=== PATIENT | male | born 1955 | race Caucasian/White ===

== ENCOUNTER 2017-06-11 10:46 | Inpatient (IN) | payer BC ==
[~2017-06-11] VITALS: Ht 175.3 cm; Wt 83.9 kg
[2017-06-11 10:51] VITALS: BP_SYST 101
[2017-06-11] MEDS ORDERED: PIPERACILLIN/TAZO 3.375 GM in NS 50 ML IV ONE (11:45)
[2017-06-11 12:02] LABS: BASOPHILS # (AUTO) 0.5 K/uL (0.0-0.2); BASOPHILS % (AUTO) 2.4 % (0.0-2.0); HEMATOCRIT 42.1 % (36-54); HEMOGLOBIN 13.7 g/dL (14.0-18.0); LYMPHOCYTES # (AUTO) 1.3 K/uL (1.0-5.5); LYMPHOCYTES % (AUTO) 6.5 % (20.5-51.5); MEAN CORPUSCULAR HEMOGLOBIN 26 pg (27-31); MEAN CORPUSCULAR HGB CONC 33 % (32-36); MEAN CORPUSCULAR VOLUME 81 fL (79.0-98.0); MONOCYTES # (AUTO) 1.2 K/uL (0.0-1.0); MONOCYTES % (AUTO) 6.1 % (1.7-9.3); NEUTROPHILS # (AUTO) 16.3 K/uL (1.8-7.7); RED BLOOD CELL COUNT(AUTO) 5.22 MIL/uL (4.2-6.2); RED CELL DISTRIBUTION WIDTH 12.2 % (9.0-15.0); WHITE BLOOD COUNT (AUTO) 19.3 K/uL (4.8-10.8)
[2017-06-11] MEDS ORDERED: PIPERACILLIN/TAZOBACTAM 3.375 GM/VIAL (ZOSYN) IV ONE (12:07)
[2017-06-11 12:19] LABS: CREATININE 2.26 mg/dL (0.55-1.30)
[2017-06-11 12:22] LABS: INR 1.1 (0.80-1.20); PROTHROMBIN TIME 11.3 SECS (9.5-12.5)
[2017-06-11 12:23] LABS: ALBUMIN 2.3 g/dL (3.4-4.8); TOTAL BILIRUBIN 0.4 mg/dL (0.0-1.0)
[2017-06-11 12:57] LABS: PLATELET COUNT (AUTO) 829 K/uL (130-430)
[2017-06-11] MEDS ORDERED: DEXTROSE 50% JECT 50 ML DISP.SYRIN IVP PRN (14:00)
[2017-06-11] MEDS ORDERED: NACL 0.9% 1,000 ML IV SCH (14:00)
[2017-06-11] MEDS ORDERED: LINEZOLID 300 ML IV SCH (14:00)
[2017-06-11 14:05] VITALS: BP_SYST 118
[2017-06-11] MEDS ORDERED: TAMSULOSIN HCL 0.4 MG CAP PO ONE (14:15)
[2017-06-11 15:29] VITALS: BP_SYST 120
[2017-06-11] MEDS: cefTRIAXone 1 GM in D5W 50 ML IV SCH (17:02)
[2017-06-11] MEDS: INSULIN REGULAR, HUMAN 100 UNITS/ML, 10 ML VIAL (novoLIN R) SUBCUT PRN ×2 (17:06→21:48)
[2017-06-11] MEDS ORDERED: *CUBICIN 4 MG/KG Q48H/PHARMACY XX PRN (17:30)
[2017-06-11] MEDS ORDERED: *HEPARIN PER PHARMACY XX ONE (19:45)
[2017-06-11 20:00] VITALS: BP_SYST 125
[2017-06-11] MEDS ORDERED: HEPARIN SODIUM,PORCINE 5000 UNITS/ML VIAL IVP ONE (20:15)
[2017-06-11] MEDS ORDERED: HEPARIN 25,000 UNITS/D5W 250ML 250 ML IV PRN (20:15)
[2017-06-11] MEDS ORDERED: HEPARIN SODIUM,PORCINE 3000 UNITS/0.6 ML BOLUS IVP PRN (20:15)
[2017-06-11] MEDS ORDERED: HEPARIN SODIUM,PORCINE 2000 UNITS/0.4 ML BOLUS IVP PRN (20:15)
[2017-06-11] MEDS ORDERED: ENOXAPARIN SODIUM 30 MG/0.3 ML SYRINGE SUBCUT SCH (21:00)
[2017-06-11] MEDS: DAPTOmycin 330 MG in NS 50 ML IV SCH (21:38)
[2017-06-11] MEDS: NACL 0.9% 1,000 ML IV SCH (22:08)
[2017-06-12] VITALS: BP_SYST 119
[2017-06-12 02:43] LABS: BILIRUBIN,URINE NEGATIVE (NEGATIVE); BLOOD, URINE 3+ (NEGATIVE); CLARITY/URINE CLEAR (CLEAR); COLOR,URINE YELLOW (YELLOW); GLUCOSE,URINE TRACE (NEGATIVE); KETONES,URINE NEGATIVE (NEGATIVE); LEUKOCYTE ESTERASE ,URINE NEGATIVE (NEGATIVE); NITRITE, URINE NEGATIVE (NEGATIVE); PROTEIN URINE TRACE (NEGATIVE); UROBILINOGEN,URINE 0.2 (0.2-1.0)
[2017-06-12 03:06] LABS: BACTERIA,URINE FEW /HPF (None Seen); WBC,URINE 0-3 /HPF (0-3)
[2017-06-12] MEDS: NACL 0.9% 1,000 ML IV SCH ×2 (05:00→09:02)
[2017-06-12 05:54] LABS: BASOPHILS % (AUTO) 0.1 % (0.0-2.0); HEMATOCRIT 33.7 % (36-54); HEMOGLOBIN 11.3 g/dL (14.0-18.0); LYMPHOCYTES # (AUTO) 1.2 K/uL (1.0-5.5); LYMPHOCYTES % (AUTO) 7.5 % (20.5-51.5); MEAN CORPUSCULAR HEMOGLOBIN 27 pg (27-31); MEAN CORPUSCULAR HGB CONC 34 % (32-36); MEAN CORPUSCULAR VOLUME 81 fL (79.0-98.0); MONOCYTES # (AUTO) 0.9 K/uL (0.0-1.0); MONOCYTES % (AUTO) 5.7 % (1.7-9.3); NEUTROPHILS # (AUTO) 13.4 K/uL (1.8-7.7); NEUTROPHILS % (AUTO) 86.7 % (40.0-70.0); RED BLOOD CELL COUNT(AUTO) 4.17 MIL/uL (4.2-6.2); RED CELL DISTRIBUTION WIDTH 11.8 % (9.0-15.0); WHITE BLOOD COUNT (AUTO) 15.5 K/uL (4.8-10.8)
[2017-06-12] MEDS: INSULIN REGULAR, HUMAN 100 UNITS/ML, 10 ML VIAL (novoLIN R) SUBCUT PRN (06:06)
[2017-06-12 06:31] LABS: CALCIUM 8.6 mg/dL (8.4-11.0); CREATININE 1.86 mg/dL (0.55-1.30); POTASSIUM 3.9 mmol/L (3.5-5.1)
[2017-06-12 06:37] LABS: ALBUMIN 1.8 g/dL (3.4-4.8); TOTAL BILIRUBIN 0.3 mg/dL (0.0-1.0)
[2017-06-12 07:28] LABS: PLATELET COUNT (AUTO) 783 K/uL (130-430)
[2017-06-12 08:00] VITALS: BP_SYST 110
[2017-06-12] MEDS: TAMSULOSIN HCL 0.4 MG CAP PO SCH (08:15)
[2017-06-12] MEDS ORDERED: METF100P3 MC (08:55)
[2017-06-12] MEDS ORDERED: VALS320T10 PO (08:55)
[2017-06-12] MEDS ORDERED: CHLO25TA PO (08:55)
[2017-06-12 11:25] LABS: INR 1.1 (0.80-1.20); PROTHROMBIN TIME 11.3 SECS (9.5-12.5)
[2017-06-12] MEDS: FLUCONAZOLE 200 mg/ NS 100 ML IV SCH (11:45)
[2017-06-12 12:13] VITALS: BP_SYST 125
[2017-06-12] MEDS: cefTRIAXone 1 GM in D5W 50 ML IV SCH (14:43)
[2017-06-12 16:34] VITALS: BP_SYST 128
[2017-06-12] MEDS ORDERED: POLYMYXIN 500,000/BACIT.10,000 UNITS in NS IRR 1 L IR ONE (17:46)
[2017-06-12] MEDS ORDERED: ONDANSETRON HCL 4 MG/2 ML VIAL IVP PRN (18:30)
[2017-06-12] MEDS ORDERED: fentaNYL CITRATE/PF 100 MCG/2 ML AMP IVP PRN ×2 (18:30)
[2017-06-12] MEDS ORDERED: BUPIVACAINE /PF 0.25% 30 ML VIAL INJ ONE (19:10)
[2017-06-12] MEDS ORDERED: PROPOFOL 200MG/ 20ML VIAL (DIPRIVAN) IV ONE (19:10)
[2017-06-12] MEDS ORDERED: MIDAZOLAM HCL 5 MG/ML VIAL (VERSED) IV ONE (19:10)
[2017-06-12] MEDS ORDERED: NS 1000 ML BAG IV ONE (19:10)
[2017-06-12] MEDS ORDERED: fentaNYL CITRATE/PF 100 MCG/2 ML AMP IVP ONE (19:10)
[2017-06-12] MEDS ORDERED: SEVOFLURANE 15 MIN GAS INH ONE (19:10)
[2017-06-12 20:00] VITALS: BP_SYST 125
[2017-06-13 00:17] VITALS: BP_SYST 122
[2017-06-13 05:04] VITALS: BP_SYST 122
[2017-06-13] MEDS: NACL 0.9% 1,000 ML IV SCH ×2 (05:43→11:45)
[2017-06-13 07:24] LABS: BASOPHILS % (AUTO) 0.2 % (0.0-2.0); HEMATOCRIT 31.9 % (36-54); HEMOGLOBIN 10.9 g/dL (14.0-18.0); LYMPHOCYTES # (AUTO) 0.5 K/uL (1.0-5.5); LYMPHOCYTES % (AUTO) 3.2 % (20.5-51.5); MEAN CORPUSCULAR HEMOGLOBIN 27 pg (27-31); MEAN CORPUSCULAR HGB CONC 34 % (32-36); MEAN CORPUSCULAR VOLUME 80 fL (79.0-98.0); MONOCYTES # (AUTO) 1.2 K/uL (0.0-1.0); NEUTROPHILS # (AUTO) 12.8 K/uL (1.8-7.7); PLATELET COUNT (AUTO) 738 K/uL (130-430); RED BLOOD CELL COUNT(AUTO) 3.97 MIL/uL (4.2-6.2); WHITE BLOOD COUNT (AUTO) 14.5 K/uL (4.8-10.8)
[2017-06-13 07:32] LABS: CALCIUM 8.1 mg/dL (8.4-11.0); CREATININE 1.53 mg/dL (0.55-1.30)
[2017-06-13 07:33] LABS: INR 1.2 (0.80-1.20); PROTHROMBIN TIME 11.7 SECS (9.5-12.5)
[2017-06-13 07:45] LABS: TOTAL IRON BIND. CAPACITY 98 ug/dL (250-450)
[2017-06-13 08:15] VITALS: BP_SYST 124
[2017-06-13] MEDS: ENOXAPARIN SODIUM 40 MG/0.4 ML SYRINGE SUBCUT SCH (09:04)
[2017-06-13] MEDS: TAMSULOSIN HCL 0.4 MG CAP PO SCH (09:04)
[2017-06-13 10:15] LABS: ERYTHROCYTE SEDIMENTATION RATE 102 MM/HR (0-15)
[2017-06-13] MEDS ORDERED: LACTOBACILLUS RHAMNOSUS GG 1 CAP CAPSULE PO ONE (11:15)
[2017-06-13 11:29] LABS: RETICULOCYTE COUNT 1.7 % (0.5-1.5)
[2017-06-13] MEDS: FLUCONAZOLE 200 mg/ NS 100 ML IV SCH (11:44)
[2017-06-13] MEDS: INSULIN REGULAR, HUMAN 100 UNITS/ML, 10 ML VIAL (novoLIN R) SUBCUT PRN ×2 (11:46→17:13)
[2017-06-13] MEDS: cefTRIAXone 1 GM in D5W 50 ML IV SCH (15:58)
[2017-06-13 16:48] VITALS: BP_SYST 130
[2017-06-13 20:01] VITALS: BP_SYST 142
[2017-06-13] MEDS: LACTOBACILLUS RHAMNOSUS GG 1 CAP CAPSULE PO SCH (20:23)
[2017-06-13] MEDS: DAPTOmycin 330 MG in NS 50 ML IV SCH (20:30)
[2017-06-13] MEDS: INSULIN ASPART 100 UNITS/ML, 10 ML VIAL (NovoLOG) SUBCUT PRN (20:33)
[2017-06-13] MEDS ORDERED: SOD FERRIC GLUC COMPLEX/SUC 62.5 MG/5 ML VIAL (FERRLECIT) IV ONE (21:22)
[2017-06-13] MEDS: SOD FERRIC GLUC COMPLEX/SUC 125 MG in NS 100 ML IV SCH (22:09)
[2017-06-14 00:04] VITALS: BP_SYST 126
[2017-06-14] MEDS: NACL 0.9% 1,000 ML IV SCH ×4 (04:52→20:28)
[2017-06-14 08:07] VITALS: BP_SYST 123
[2017-06-14] MEDS: ENOXAPARIN SODIUM 40 MG/0.4 ML SYRINGE SUBCUT SCH (08:19)
[2017-06-14] MEDS: TAMSULOSIN HCL 0.4 MG CAP PO SCH (08:20)
[2017-06-14] MEDS: LACTOBACILLUS RHAMNOSUS GG 1 CAP CAPSULE PO SCH ×2 (08:20→20:16)
[2017-06-14 12:33] VITALS: BP_SYST 137
[2017-06-14] MEDS: FLUCONAZOLE 200 mg/ NS 100 ML IV SCH (12:36)
[2017-06-14] MEDS: cefTRIAXone 1 GM in D5W 50 ML IV SCH (14:33)
[2017-06-14 16:36] VITALS: BP_SYST 136
[2017-06-14] MEDS ORDERED: POLYMYXIN 500,000/BACIT.10,000 UNITS in NS IRR 1 L IR ONE (16:53)
[2017-06-14] MEDS ORDERED: fentaNYL CITRATE/PF 100 MCG/2 ML AMP IVP PRN ×2 (17:45)
[2017-06-14] MEDS ORDERED: ONDANSETRON HCL 4 MG/2 ML VIAL IVP PRN (17:45)
[2017-06-14 18:45] VITALS: BP_SYST 156
[2017-06-14 20:00] VITALS: BP_SYST 144
[2017-06-14] MEDS: SOD FERRIC GLUC COMPLEX/SUC 125 MG in NS 100 ML IV SCH (20:17)
[2017-06-15 00:05] VITALS: BP_SYST 129
[2017-06-15 06:51] LABS: ALBUMIN 1.6 g/dL (3.4-4.8); CALCIUM 7.8 mg/dL (8.4-11.0); CREATININE 1.28 mg/dL (0.55-1.30); PHOSPHORUS 3.3 mg/dL (2.7-4.5); POTASSIUM 4.3 mmol/L (3.5-5.1); TOTAL BILIRUBIN 0.3 mg/dL (0.0-1.0)
[2017-06-15 07:03] LABS: BASOPHILS % (AUTO) 0.4 % (0.0-2.0); EOSINOPHILS % (AUTO) 0.1 % (0.0-4.0); HEMATOCRIT 31.7 % (36-54); HEMOGLOBIN 10.4 g/dL (14.0-18.0); LYMPHOCYTES # (AUTO) 0.7 K/uL (1.0-5.5); LYMPHOCYTES % (AUTO) 6.1 % (20.5-51.5); MEAN CORPUSCULAR HEMOGLOBIN 26 pg (27-31); MEAN CORPUSCULAR HGB CONC 33 % (32-36); MEAN CORPUSCULAR VOLUME 80 fL (79.0-98.0); MONOCYTES # (AUTO) 1.2 K/uL (0.0-1.0); MONOCYTES % (AUTO) 9.5 % (1.7-9.3); NEUTROPHILS # (AUTO) 10.3 K/uL (1.8-7.7); NEUTROPHILS % (AUTO) 83.9 % (40.0-70.0); RED BLOOD CELL COUNT(AUTO) 3.95 MIL/uL (4.2-6.2); RED CELL DISTRIBUTION WIDTH 11.9 % (9.0-15.0); WHITE BLOOD COUNT (AUTO) 12.2 K/uL (4.8-10.8)
[2017-06-15 07:46] LABS: PLATELET COUNT (AUTO) 795 K/uL (130-430)
[2017-06-15 07:47] LABS: NEUTROPHILS % (AUTO) 88.6 % (40.0-70.0)
[2017-06-15 08:30] VITALS: BP_SYST 136
[2017-06-15] MEDS: NACL 0.9% 1,000 ML IV SCH ×2 (09:40→21:41)
[2017-06-15] MEDS: TAMSULOSIN HCL 0.4 MG CAP PO SCH (09:40)
[2017-06-15] MEDS: LACTOBACILLUS RHAMNOSUS GG 1 CAP CAPSULE PO SCH ×2 (09:40→20:19)
[2017-06-15] MEDS: ENOXAPARIN SODIUM 40 MG/0.4 ML SYRINGE SUBCUT SCH (09:40)
[2017-06-15] MEDS: FLUCONAZOLE 200 mg/ NS 100 ML IV SCH (11:42)
[2017-06-15 11:46] VITALS: BP_SYST 136
[2017-06-15] MEDS: INSULIN ASPART 100 UNITS/ML, 10 ML VIAL (NovoLOG) SUBCUT PRN ×3 (11:52→20:22)
[2017-06-15] MEDS: cefTRIAXone 1 GM in D5W 50 ML IV SCH (15:28)
[2017-06-15 16:58] VITALS: BP_SYST 132
[2017-06-15 20:15] VITALS: BP_SYST 144
[2017-06-15] MEDS: DAPTOmycin 330 MG in NS 50 ML IV SCH (20:19)
[2017-06-15] MEDS: SOD FERRIC GLUC COMPLEX/SUC 125 MG in NS 100 ML IV SCH (21:42)
[2017-06-16 01:08] VITALS: BP_SYST 121
[2017-06-16] MEDS: INSULIN ASPART 100 UNITS/ML, 10 ML VIAL (NovoLOG) SUBCUT PRN ×2 (06:06→20:53)
[2017-06-16 07:01] LABS: BASOPHILS # (AUTO) 0.1 K/uL (0.0-0.2); BASOPHILS % (AUTO) 0.4 % (0.0-2.0); HEMATOCRIT 37.1 % (36-54); LYMPHOCYTES # (AUTO) 0.8 K/uL (1.0-5.5); LYMPHOCYTES % (AUTO) 4.8 % (20.5-51.5); MEAN CORPUSCULAR HEMOGLOBIN 26 pg (27-31); MEAN CORPUSCULAR HGB CONC 32 % (32-36); MEAN CORPUSCULAR VOLUME 81 fL (79.0-98.0); MONOCYTES # (AUTO) 1.5 K/uL (0.0-1.0); MONOCYTES % (AUTO) 8.9 % (1.7-9.3); NEUTROPHILS # (AUTO) 14.3 K/uL (1.8-7.7); NEUTROPHILS % (AUTO) 85.9 % (40.0-70.0); WHITE BLOOD COUNT (AUTO) 16.7 K/uL (4.8-10.8)
[2017-06-16 07:17] LABS: CALCIUM 8.3 mg/dL (8.4-11.0); CREATININE 1.26 mg/dL (0.55-1.30); POTASSIUM 4.1 mmol/L (3.5-5.1)
[2017-06-16 07:33] LABS: PLATELET COUNT (AUTO) 853 K/uL (130-430)
[2017-06-16 07:38] LABS: INR 1.1 (0.80-1.20); PROTHROMBIN TIME 11.4 SECS (9.5-12.5)
[2017-06-16 08:05] VITALS: BP_SYST 142
[2017-06-16 08:12] LABS: RED CELL DISTRIBUTION WIDTH 12.3 % (9.0-15.0)
[2017-06-16] MEDS: LACTOBACILLUS RHAMNOSUS GG 1 CAP CAPSULE PO SCH ×2 (09:18→20:49)
[2017-06-16] MEDS: TAMSULOSIN HCL 0.4 MG CAP PO SCH (09:18)
[2017-06-16] MEDS: ENOXAPARIN SODIUM 40 MG/0.4 ML SYRINGE SUBCUT SCH (09:19)
[2017-06-16] MEDS: FLUCONAZOLE 200 mg/ NS 100 ML IV SCH (11:51)
[2017-06-16 12:36] VITALS: BP_SYST 146
[2017-06-16] MEDS: cefTRIAXone 1 GM in D5W 50 ML IV SCH (14:42)
[2017-06-16] MEDS ORDERED: TAMS-11 PO (15:49)
[2017-06-16] MEDS ORDERED: CARV3.1246 PO (15:49)
[2017-06-16] MEDS ORDERED: AMOX250C PO (15:51)
[2017-06-16 15:52] VITALS: BP_SYST 150
[2017-06-16] MEDS ORDERED: NACL 0.9% 1,000 ML IV ONE (16:00)
[2017-06-16] MEDS ORDERED: CARVEDILOL 6.25 MG TABLET (COREG) PO ONE (16:30)
[2017-06-16] MEDS: NACL 0.9% 1,000 ML IV SCH (17:28)
[2017-06-16 20:00] VITALS: BP_SYST 158
[2017-06-16] MEDS: CARVEDILOL 6.25 MG TABLET (COREG) PO SCH (20:50)
[2017-06-16 23:54] VITALS: BP_SYST 136
[2017-06-17] MEDS: NACL 0.9% 1,000 ML IV SCH ×2 (01:34→15:48)
[2017-06-17 03:47] VITALS: BP_SYST 139
[2017-06-17 07:37] LABS: BASOPHILS # (AUTO) 0.1 K/uL (0.0-0.2); BASOPHILS % (AUTO) 0.5 % (0.0-2.0); EOSINOPHILS % (AUTO) 0.1 % (0.0-4.0); HEMATOCRIT 34.6 % (36-54); HEMOGLOBIN 11.8 g/dL (14.0-18.0); LYMPHOCYTES # (AUTO) 0.9 K/uL (1.0-5.5); LYMPHOCYTES % (AUTO) 6.8 % (20.5-51.5); MEAN CORPUSCULAR HEMOGLOBIN 27 pg (27-31); MEAN CORPUSCULAR HGB CONC 34 % (32-36); MEAN CORPUSCULAR VOLUME 80 fL (79.0-98.0); MONOCYTES # (AUTO) 0.8 K/uL (0.0-1.0); MONOCYTES % (AUTO) 6.3 % (1.7-9.3); NEUTROPHILS # (AUTO) 11.3 K/uL (1.8-7.7); NEUTROPHILS % (AUTO) 86.3 % (40.0-70.0); RED BLOOD CELL COUNT(AUTO) 4.31 MIL/uL (4.2-6.2); RED CELL DISTRIBUTION WIDTH 12.6 % (9.0-15.0); WHITE BLOOD COUNT (AUTO) 13.1 K/uL (4.8-10.8)
[2017-06-17 07:45] LABS: CREATININE 1.15 mg/dL (0.55-1.30); POTASSIUM 4.6 mmol/L (3.5-5.1)
[2017-06-17 08:00] LABS: PLATELET COUNT (AUTO) 896 K/uL (130-430)
[2017-06-17] MEDS: TAMSULOSIN HCL 0.4 MG CAP PO SCH (08:06)
[2017-06-17] MEDS: CARVEDILOL 6.25 MG TABLET (COREG) PO SCH ×2 (08:10→20:30)
[2017-06-17] MEDS: LACTOBACILLUS RHAMNOSUS GG 1 CAP CAPSULE PO SCH ×2 (08:11→20:30)
[2017-06-17] MEDS: ENOXAPARIN SODIUM 40 MG/0.4 ML SYRINGE SUBCUT SCH (08:11)
[2017-06-17 08:16] VITALS: BP_SYST 149
[2017-06-17 12:02] VITALS: BP_SYST 135
[2017-06-17 12:22] VITALS: BP_SYST 135
[2017-06-17] MEDS: INSULIN ASPART 100 UNITS/ML, 10 ML VIAL (NovoLOG) SUBCUT PRN ×2 (12:33→20:47)
[2017-06-17] MEDS: cefTRIAXone 1 GM in D5W 50 ML IV SCH (15:16)
[2017-06-17 16:09] VITALS: BP_SYST 139
[2017-06-17] MEDS: metFORMIN HCL 500 MG TABLET PO SCH (17:55)
[2017-06-17 20:00] VITALS: BP_SYST 136
[2017-06-17] MEDS: DAPTOmycin 330 MG in NS 50 ML IV SCH (20:30)
[2017-06-18] VITALS (7 sets, daily range): BP systolic 107–139
[2017-06-18] MEDS: NACL 0.9% 1,000 ML IV SCH ×2 (03:12→08:00)
[2017-06-18] MEDS: ENOXAPARIN SODIUM 40 MG/0.4 ML SYRINGE SUBCUT SCH (09:14)
[2017-06-18] MEDS: CARVEDILOL 6.25 MG TABLET (COREG) PO SCH (09:14)
[2017-06-18] MEDS: TAMSULOSIN HCL 0.4 MG CAP PO SCH (09:14)
[2017-06-18] MEDS: LACTOBACILLUS RHAMNOSUS GG 1 CAP CAPSULE PO SCH (09:14)
[2017-06-18] MEDS: metFORMIN HCL 500 MG TABLET PO SCH (09:15)
[2017-06-18] MEDS ORDERED: FLUCONAZOLE 200 mg/ NS 100 ML IV SCH (13:00)
[2017-06-18] MEDS: cefTRIAXone 1 GM in D5W 50 ML IV SCH (14:42)
[2017-06-18] MEDS ORDERED: NS IRRIG SOLN 1000 ML IR ONE (17:00)
[2017-06-18] MEDS ORDERED: MIDAZOLAM HCL 5 MG/5 ML VIAL IVP ONE (17:00)
[2017-06-18] MEDS ORDERED: BUPIVACAINE /EPINEPHRINE/PF 0.25% 30 ML VIAL INJ ONE (17:00)
[2017-06-18] MEDS ORDERED: fentaNYL CITRATE/PF 100 MCG/2 ML AMP IVP ONE (17:00)
[2017-06-18] MEDS ORDERED: SEVOFLURANE 15 MIN GAS INH ONE (17:00)
[2017-06-18] MEDS ORDERED: LR 1,000 ML IV.SOLN IV ONE (17:00)
[2017-06-18] MEDS ORDERED: PROPOFOL 200MG/ 20ML VIAL (DIPRIVAN) IV ONE (17:00)
== END 2017-06-18 17:40 | disposition home or self-care (01) | DRG 853 ==
LOC: SED 10:46 → SMU 13:32 → STU 13:52 → SMU 22:28
PROVIDERS: ADMIT Internal Medicine; ATTEND Internal Medicine
PROC: 05HY33Z Insertion of Infusion Device into Upper Vein, Percutaneous Approach (ICD-10-PCS; 2017-06-12)
PROC: 0Y6M0Z9 Detachment at Right Foot, Partial 1st Ray, Open Approach (ICD-10-PCS; principal; 2017-06-12 17:00)
PROC: 0JBQ0ZZ Excision of Right Foot Subcutaneous Tissue and Fascia, Open Approach (ICD-10-PCS; 2017-06-14)
DX: A41.9 Sepsis, unspecified organism (principal); E43 Unspecified severe protein-calorie malnutrition; N17.9 Acute kidney failure, unspecified; D68.59 Other primary thrombophilia; E11.21 Type 2 diabetes mellitus with diabetic nephropathy; I82.402 Acute embolism and thrombosis of unspecified deep veins of left lower extremity; E11.42 Type 2 diabetes mellitus with diabetic polyneuropathy; E11.621 Type 2 diabetes mellitus with foot ulcer; M86.8X7 Other osteomyelitis, ankle and foot; E87.1 Hypo-osmolality and hyponatremia; E11.69 Type 2 diabetes mellitus with other specified complication; L97.519 Non-pressure chronic ulcer of other part of right foot with unspecified severity; M21.612 Bunion of left foot; D64.9 Anemia, unspecified; E78.5 Hyperlipidemia, unspecified; I10 Essential (primary) hypertension; L03.031 Cellulitis of right toe; Z86.72 Personal history of thrombophlebitis; Z91.19 Patient's noncompliance with other medical treatment and regimen; Z68.27 Body mass index [BMI] 27.0-27.9, adult
CPT/HCPCS: 36415; 71045; 73721; 76770; 80048; 80053; 81000-TC; 82728; 82962; 83036; 83540-TC; 83550-TC; 83605; 83735-TC; 84100-TC; 84484; 85025; 85044-TC; 85610-TC; 85651-TC; 85730-TC; 87040-TC; 87070-TC; 87081; 87186-TC; 88305; 88311; 93005; 93923; 93970; 96365; 97116-GP; 97530-GP; 99291; C1751; J0696; J0878; J1450; J1644; J1650; J1815; J2020; J2250; J2543; J2704; J2916; J3010; J3490; J7030; J7060; J7120

== ENCOUNTER 2017-07-01 10:33 | Inpatient (IN) | payer BC ==
[~2017-07-01] VITALS: Ht 177.8 cm; Wt 96.4 kg
[~2017-07-01 10:33] MED LIST: AMOX250C PO; CARV3.1246 PO; METF100P3 MC; TAMS-11 PO
--- NOTE | 2017-07-01 10:35 | NUR ---
Placed in room 3. Placed on cardiac rehab nurse, blood pressure machine and pulse oximeter. To gown for exam. Side rails up.
--- NOTE | 2017-07-01 10:36 | NUR ---
Pt sent from PMD for evaluation of CHF with c/o SOB. Pt h/o DM, HTN and recebnt admission for R great toe amputation. Pt has Bitaeral LE swelling and increased SOB with mild exertion.
[2017-07-01 10:37] VITALS: BP_SYST 142
--- NOTE | 2017-07-01 10:40 | NUR ---
# 20 gauge angiocath placed to LAC. Use of asceptic technique. Opsite placed over site. Blood return noted. Blood for lab drawn from site. Flushed with 10 cc of normal saline. No evidence of infiltration noted. Patient tolerated well.
--- NOTE | 2017-07-01 10:48 | NUR ---
ER at bedside examining patient.
[2017-07-01] MEDS ORDERED: ASPIRIN 325 MG TABLET PO ONE (11:00)
[2017-07-01] MEDS ORDERED: IPRATROPIUM/ALBUTEROL SULFATE 3 ML AMPUL.NEB INH ONE (11:00)
--- NOTE | 2017-07-01 11:12 | NUR ---
RT at bedside foe breathing tx.
[2017-07-01 11:20] LABS: HEMATOCRIT 36.9 % (36-54); HEMOGLOBIN 12.4 g/dL (14.0-18.0); MEAN CORPUSCULAR HEMOGLOBIN 27 pg (27-31); MEAN CORPUSCULAR HGB CONC 34 % (32-36); MEAN CORPUSCULAR VOLUME 80 fL (79.0-98.0); RED BLOOD CELL COUNT(AUTO) 4.61 MIL/uL (4.2-6.2); RED CELL DISTRIBUTION WIDTH 13.4 % (9.0-15.0); WHITE BLOOD COUNT (AUTO) 23.5 K/uL (4.8-10.8)
[2017-07-01 11:22] LABS: PLATELET COUNT (AUTO) 910 K/uL (130-430)
[2017-07-01 11:28] LABS: CALCIUM 9.8 mg/dL (8.4-11.0); CREATININE 3.44 mg/dL (0.55-1.30); POTASSIUM 4.9 mmol/L (3.5-5.1)
[2017-07-01] MEDS ORDERED: VANCOMYCIN HCL 1,000 MG in NS 250 ML IV ONE (11:30)
[2017-07-01] MEDS ORDERED: NACL 0.9% 1,000 ML IV ONE (11:30)
[2017-07-01] MEDS ORDERED: PIPERACILLIN/TAZO 3.375 GM in NS 50 ML IV ONE (11:30)
[2017-07-01 11:31] LABS: INR 1.2 (0.80-1.20); PROTHROMBIN TIME 11.9 SECS (9.5-12.5)
[2017-07-01 11:33] LABS: ALBUMIN 1.9 g/dL (3.4-4.8); TOTAL BILIRUBIN 0.5 mg/dL (0.0-1.0)
[2017-07-01 11:44] LABS: BILIRUBIN,URINE 2+ (NEGATIVE); BLOOD, URINE 3+ (NEGATIVE); CLARITY/URINE SL HAZY (CLEAR); COLOR,URINE YELLOW (YELLOW); GLUCOSE,URINE NEGATIVE (NEGATIVE); KETONES,URINE 1+ (NEGATIVE); LEUKOCYTE ESTERASE ,URINE NEGATIVE (NEGATIVE); NITRITE, URINE NEGATIVE (NEGATIVE); PROTEIN URINE 2+ (NEGATIVE); UROBILINOGEN,URINE 0.2 (0.2-1.0)
--- NOTE | 2017-07-01 11:44 | NUR ---
Urine specimen collected and sent.
[2017-07-01 11:53] LABS: BAND % (MANUAL) 6 % (0-6); BASOPHILS % (MANUAL) 0 % (0-2); EOSINOPHILS % (MANUAL) 1 % (0-7); LYMPHOCYTES % (MANUAL) 2 % (20-46); MONOCYTES % (MANUAL) 10 % (0-11)
[2017-07-01] MEDS ORDERED: FUROSEMIDE 40 MG/4 ML VIAL IVP ONE (12:00)
--- NOTE | 2017-07-01 12:00 | NUR ---
Pt medicated tolerated well.
[2017-07-01] MEDS ORDERED: VANCOMYCIN HCL 1000 MG/VIAL IV ONE (12:02)
[2017-07-01] MEDS ORDERED: PIPERACILLIN/TAZOBACTAM 3.375 GM/VIAL (ZOSYN) IV ONE (12:03)
[2017-07-01] MEDS ORDERED: FUROSEMIDE 20 MG/2 ML VIAL ONE (12:05)
[2017-07-01 12:12] LABS: BACTERIA,URINE FEW /HPF (None Seen); MUCUS,URINE None Seen /LPF (None Seen); RBC,URINE 80-100 /HPF (0-3); WBC,URINE 0-3 /HPF (0-3)
[2017-07-01] MEDS ORDERED: FURO80TA3 PO (12:30)
[2017-07-01] MEDS ORDERED: METF1000 PO (12:30)
[2017-07-01] MEDS ORDERED: NOR10 PO (12:30)
--- NOTE | 2017-07-01 12:30 | NUR ---
Pt reports ease in resp effort contuining to monitor. O2 sat 90-91% RA. Pt placed on simple mask for further resp support.
--- NOTE | 2017-07-01 13:24 | NUR ---
Pt placed on Venti mask. called for ABG results.
--- NOTE | 2017-07-01 13:59 | NUR ---
admission Patient transferred from ER, Report endorsed by ER nurse. Patient is awake and alert, no signs of any distress, breathing is equal and non labored. Patient oriented to call light, call light is with patient. Patient has no complaints at this time. Patient is stable. Will continue to monitor.
--- NOTE | 2017-07-01 13:59 | NUR ---
CONSULT PULMONOLOGY PNA DR CADET [phone] S/W [facility] OFFICE @ [phone]
--- NOTE | 2017-07-01 14:00 | NUR ---
CONSULT NEPHROLOGY RENAL FAILURE DR MOORE [phone] S/W [facility] OFFICE @ [phone]
--- NOTE | 2017-07-01 14:02 | NUR ---
CONSULTATION PAGED REASON FOR CONSULTATION:RENAL FAILURE WAS CONSULT CALLED?Y PERSON WHO WAS NOTIFIED:ABI CONSULTING PHYSICIAN:KAILEY GUTIERREZ POWERTRAIN ENGINEER SPECIALTY:NEPHROLGY POWERTRAIN ENGINEER PHONE NUMBER:[phone] ORDERING PHYSICIAN:ERIC PENA
[2017-07-01 14:13] VITALS: BP_SYST 134
--- NOTE | 2017-07-01 14:20 | NUR ---
DR. ZENDEJAS EVALUATING PT IN ED. PT STATUS CHANGED TO TELEMETRY.
--- NOTE | 2017-07-01 14:40 | NUR ---
Patient will be admitted to care of . Admitted to TELEMETRY unit. Will go to room 109A. Belongings list completed. Summary report printed. Report will be given at bedside.
[2017-07-01 15:36] VITALS: BP_SYST 132
--- NOTE | 2017-07-01 15:39 | NUR ---
WOUND EVALUATION: Wound Consult received from Dr. Plascencia. Thank you, Dr. Plascencia, for the consult. Patient received in a [place] Bed with an IsoFlex JOSIE mattress, awake, alert, and oriented. Patient is able to turn in bed independently. Cole Score is a 19. Past Medical History: Diabetes Mellitus, Hypertension, diabetic foot ulcers, Appendectomy, pyloric stenosis L foot ORIF, right hallux amputation by Dr. Roman. Patient admitted to hospital secondary to shortness of breath. Patient had a surgery with osteonecrosis of right great toe on 04/08/17, and received 6 weeks of IV antibiotics at Dr. Ho's office, and finished on 05/22/17. He was seen by Dr. Roman on 06/03/17 and referred to wound care that he was unable to go to. Patient was currently receiving home health and clinical wound care, as well as IV Antibiotic therapy in a physician's office. Recent Labs: WBC 23.5, RBC 4.61, hemoglobin 12.4, hematocrit 36.9, sodium 131, chloride 97, BUN 56, creatinine 3.44, GFR 19, glucose 198, BNP 746, albumin 1.9, PTT 41.4. Microbiology: Blood culture results 2 in progress. MRSA screen results in progress. Intrinsic factors that delay wound healing: Diabetes mellitus, hypoalbuminemia. Extrinsic factors that delay wound healing: Decreased mobility. Wound Assessment: 1. Right great toe amputation site: Diabetic foot ulcer with recent amputation, present on admission. Wound bed has 30% yellow slough, 50% black eschar, 20% yellow eschar. Mild odor, scant purulent drainage. Site measures 10.0 cm x 6.0 cm x 0.9 cm. Black sutures and 11 ita observed. Right foot has mild erythema, mild calor, and bilateral feet have 3+ pitting edema. Recommend: Cleanse wound with normal saline. Put moisture barrier cream onto periwound. Apply Venelex ointment onto wound bed. Cover with foam dressing. Wrap with Tee wrap. Perform wound care daily, and as needed for dressing soiling or dislodgment. 2. Left plantar foot on 1st metatarsal head: Chronic diabetic foot ulcer, present on admission. Wound site has 10% black eschar, 90% brown eschar. No odor, no drainage. Dry, stable. Callused periwound. Wound site measures 2.0 cm x 1.5 cm. Recommend: Cover with foam dressing to protect site. Continue to monitor site for drainage or worsening condition. 3. Left foot fifth toe, dorsal aspect: Chronic diabetic foot ulcer, present on admission. Wound site has 10% black eschar, 90% white eschar. No odor, no drainage. Dry, stable. Callused periwound. Wound site measures 1.3 cm x 1.3 cm. Recommend: No dressing needed. Continue to monitor site for drainage or worsening condition. Also recommend: Encourage and assist patient as needed with repositioning every 2 hours with pillow support, and off-load pressure areas with pillows for pressure re-distribution. Offload, elevate and float bilateral heels with pillows. Maintain nonweightbearing status on bilateral feet. Perform skin care and monitor skin integrity Q shift. Use moisture barrier cream on buttocks and other moisture susceptible areas QID and as needed for soiling. Recommend surgical consult. Suspect possible osteomyelitis and vascular involvement.
--- NOTE | 2017-07-01 16:58 | NUR ---
CONSULTATION PAGED REASON FOR CONSULTATION:RIGHT BIG TOE WOUND ELEVATED WBC'S WAS CONSULT CALLED?Y PERSON WHO WAS NOTIFIED:MEGAN CONSULTING PHYSICIAN:ALBA WAYNE REGIONAL SALES TRAINER SPECIALTY:INFECTIOUS DISEASE REGIONAL SALES TRAINER PHONE NUMBER:[phone] ORDERING PHYSICIAN:ERIC PENA
--- NOTE | 2017-07-01 17:01 | NUR ---
CONSULTATION PAGED REASON FOR CONSULTATION:RIGHT BIG TOE WOUND WAS CONSULT CALLED?Y PERSON WHO WAS NOTIFIED:ADITYA CONSULTING PHYSICIAN:JIM CAMPBELL PHOTOGRAPHY MANAGER SPECIALTY:SURGEON PHOTOGRAPHY MANAGER PHONE NUMBER:[phone] ORDERING PHYSICIAN:ERIC PENA
--- NOTE | 2017-07-01 17:08 | NUR ---
Dr. Plascencia Spoke with MD received orders. Will follow though. Patient is awake and alert, laying in bed no complaints of any pain. Breathing is equal and non labored. Patient has all safety precautions in place. in place.Call light is with patient. Patient has no other needs at this time. will continue to monitor.
[2017-07-01] MEDS ORDERED: GLUCOSE 15 GM GEL (in 37.5 GM TUBE) PO PRN ×2 (17:15)
[2017-07-01] MEDS ORDERED: DEXTROSE 50%-WATER 50 ML DISP.SYRIN IVP PRN ×2 (17:15)
[2017-07-01] MEDS: INSULIN REGULAR, HUMAN 100 UNITS/ML, 10 ML VIAL (novoLIN R) SUBCUT PRN ×2 (17:31→20:52)
[2017-07-01] MEDS: BALSAM PERU/CASTOR OIL 60 GM OINT...G. TP SCH (17:59)
[2017-07-01] MEDS ORDERED: SODIUM BICARBONATE 8.4% JECT 50 MEQ/50 ML SYRINGE IVP ONE (18:00)
[2017-07-01] MEDS: PIPERACILLIN/TAZO 2.25G/DEX-IS 50 ML IV SCH ×2 (18:19→23:31)
[2017-07-01 18:42] VITALS: BP_SYST 132
--- NOTE | 2017-07-01 18:52 | NUR ---
RN closing note Patient is awake and alert. Patient scheduled medication was given per order. Patient has call light with him educated to use for assistance. Patient has all safety precautions in place.Wound care was done as ordered. Patient is stable with no other needs at this time. Will endorse report to oncoming night nurse.
[2017-07-01] MEDS: IPRATROPIUM/ALBUTEROL SULFATE 3 ML AMPUL.NEB INH SCH ×2 (19:38→23:08)
--- NOTE | 2017-07-01 19:45 | NUR ---
OPENING NOTE RECEIVED PATIENT AND REPORT FROM DAY SHIFT NURSE. PATIENT IS SITTING UP AWAKE IN BED. PATIENT IS ALERT AND ORIENTED X 4. PT DENIES ANY PAIN AT THIS TIME. VENTURI MASK ON AT 30 PERCENT. IV IS INTACT AND PATENT RUNNING IVF. FALL AND SAFETY PRECAUTIONS IN PLACE. BED LOCKED IN LOWEST POSITION, BED ALARM REFUSED DESPITE EDUCATION. CALL LIGHT WITH PATIENT. WILL CONTINUE TO MONITOR.
--- NOTE | 2017-07-01 19:57 | NUR ---
RADIOLOGY AT BEDSIDE RADIOLOGY AT BEDSIDE TO PERFORM STAT DOPPLER.
[2017-07-01 20:00] VITALS: BP_SYST 141
[2017-07-01] MEDS: LINEZOLID 300 ML IV SCH (20:39)
--- NOTE | 2017-07-01 20:50 | NUR ---
MEDICATION ADMINISTRATION/ BLOOD SUGAR ADMINISTERED MEDICATION PER ORDERS. BLOOD SUGAR READING OF 165, COVERAGE PER SLIDING SCALE. RADIOLOGY AT BEDSIDE. WILL CONTINUE TO MONITOR.
--- NOTE | 2017-07-01 21:27 | NUR ---
DVT LEFT LEG RADIOLOGY REPORTS THAT PATIENT HAS DVT IN LEFT LEG PER VENOUS DOPPLER STUDY.
--- NOTE | 2017-07-01 22:05 | NUR ---
ROUNDING NOTE ADJUSTED IV MACHINE AND PROVIDED EXTENSION FOR VENTURI MASK. PATIENT SITTING UP WITH CHEST OVER BEDSIDE TABLE. NO OTHER NEEDS. CALL LIGHT WITH PATIENT. WILL CONTINUE TO MONITOR.
--- NOTE | 2017-07-01 22:53 | NUR ---
page Dr. Plascencia for orders, spoke with Stefani.
--- NOTE | 2017-07-01 23:04 | NUR ---
paged Dr. Young (Dr. Somers brush fabrication supervisor).
--- NOTE | 2017-07-01 23:11 | NUR ---
HEPARIN PER PHARMACY INFORMED DR. ZAIDI OF POSITIVE DVT IN LEFT LEG. NEW ORDERS FOR HEPARIN. WILL FOLLOW THROUGH WITH ORDERS.
--- NOTE | 2017-07-01 23:31 | NUR ---
IV ABX ADMINISTERED IV ABX PER ORDERS. PATIENT SITTING OVER BEDSIDE TABLE. WILL CONTINUE TO MONITOR. CALL LIGHT WITH PATIENT.
[2017-07-01] MEDS ORDERED: HEPARIN SODIUM,PORCINE 3000 UNITS/0.6 ML BOLUS IVP PRN (23:45)
[2017-07-01] MEDS ORDERED: HEPARIN SODIUM,PORCINE 2000 UNITS/0.4 ML BOLUS IVP PRN (23:45)
[2017-07-02 00:15] VITALS: BP_SYST 125
[2017-07-02] MEDS ORDERED: HEPARIN SODIUM,PORCINE 5000 UNITS/ML VIAL IVP SCH (00:30)
[2017-07-02] MEDS: HEPARIN 25,000 UNITS in 250 ML PREMIX IV PRN ×3 (01:08→17:39)
--- NOTE | 2017-07-02 01:20 | NUR ---
HEPARIN INITIATED INITIATED HEPARIN PROTOCOL. PATIENT SITTING UP IN BED. BROUGHT TISSUES PER REQUEST. NO OTHER NEEDS. CALL LIGHT WITH PATIENT. WILL CONTINUE TO MONITOR.
[2017-07-02] MEDS: IPRATROPIUM/ALBUTEROL SULFATE 3 ML AMPUL.NEB INH SCH ×6 (02:27→23:41)
--- NOTE | 2017-07-02 02:30 | NUR ---
ROUNDING NOTE PATIENT IS RESTING IN BED. NO S/S OF DISTRESS OR DISCOMFORT. WILL CONTINUE TO MONITOR. CALL LIGHT WITH PATIENT.
--- NOTE | 2017-07-02 03:30 | NUR ---
ROUNDING NOTE ASSISTED PATIENT TO BATHROOM, PLACED BOOT ON RIGHT FOOT. PATIENT IS STEADY ON FEET, DENIES ANY DIZZINESS. WILL CONTINUE TO MONITOR. CALL LIGHT WITH PATIENT.
--- NOTE | 2017-07-02 05:10 | NUR ---
ROUNDING NOTE PATIENT IS SITTING UP IN BED. DENIES ANY NEEDS AT THIS TIME. WILL CONTINUE TO MONITOR. CALL LIGHT WITH PATIENT.
[2017-07-02] MEDS: PIPERACILLIN/TAZO 2.25G/DEX-IS 50 ML IV SCH ×4 (06:02→23:34)
--- NOTE | 2017-07-02 06:02 | NUR ---
MEDICATION ADMINISTRATION AND BLOOD SUGAR MEDICATION ADMINISTERED PER ORDERS. BLOOD SUGAR READING OF 204. COVERAGE GIVEN PER SLIDING SCALE. WILL CONTINUE TO MONITOR. CALL LIGHT WITH PATIENT.
[2017-07-02] MEDS: INSULIN REGULAR, HUMAN 100 UNITS/ML, 10 ML VIAL (novoLIN R) SUBCUT PRN ×4 (06:05→20:16)
--- NOTE | 2017-07-02 06:51 | NUR ---
CLOSING NOTE WILL ENDORSE CARE AND REPORT TO DAY SHIFT NURSE. PATIENT IS CURRENTLY SITTING UP IN BED. PATIENT DENIES PAIN OR DISCOMFORT AT THIS TIME. PATIENT IN STABLE CONDITION. ALL NEEDS MET THROUGHOUT SHIFT. FALL AND SAFETY PRECAUTIONS MAINTAINED. NO SIGNIFICANT CHANGES TO NOTE. CALL LIGHT WITH PATIENT. WILL CONTINUE TO MONITOR.
--- NOTE | 2017-07-02 07:35 | NUR ---
Opening Note: Patient laying in bed resting. Patient denies pain and discomfort. Breathing is even and unlabored with no distress noted. Patient denies SOB. IV patent and intact running heparin drip per protocol. Urinal at bedside. Bed in lowest position, wheels locked, side rails x3, bed alarm activated and call light within reach. Will continue to monitor.
[2017-07-02 07:51] LABS: HEMATOCRIT 33.7 % (36-54); HEMOGLOBIN 11.2 g/dL (14.0-18.0); MEAN CORPUSCULAR HEMOGLOBIN 27 pg (27-31); MEAN CORPUSCULAR HGB CONC 33 % (32-36); MEAN CORPUSCULAR VOLUME 80 fL (79.0-98.0); RED BLOOD CELL COUNT(AUTO) 4.19 MIL/uL (4.2-6.2); RED CELL DISTRIBUTION WIDTH 13.4 % (9.0-15.0); WHITE BLOOD COUNT (AUTO) 25.6 K/uL (4.8-10.8)
--- NOTE | 2017-07-02 07:53 | NUR ---
Nutrition Update Cole Scale 17 noted. Pt admitted for pneumonia Diet: [facility] diet BMI: 30.8 kg/m2 RD to follow per nutrition care standards.
[2017-07-02 08:03] VITALS: BP_SYST 120
[2017-07-02 08:04] LABS: PLATELET COUNT (AUTO) 831 K/uL (130-430)
[2017-07-02 08:07] LABS: ALBUMIN 1.6 g/dL (3.4-4.8); CALCIUM 9.1 mg/dL (8.4-11.0); CREATININE 3.54 mg/dL (0.55-1.30); POTASSIUM 4.2 mmol/L (3.5-5.1); TOTAL BILIRUBIN 0.4 mg/dL (0.0-1.0)
--- NOTE | 2017-07-02 08:10 | NUR ---
Paging Dr. Plascencia: Paging Dr. Plascencia regarding critical lab. Awaiting callback.
[2017-07-02 08:12] LABS: BAND % (MANUAL) 8 % (0-6); LYMPHOCYTES % (MANUAL) 8 % (20-46)
[2017-07-02 08:13] LABS: BASOPHILS % (MANUAL) 0 % (0-2); EOSINOPHILS % (MANUAL) 0 % (0-7); MONOCYTES % (MANUAL) 9 % (0-11)
--- NOTE | 2017-07-02 08:15 | NUR ---
Wound Care: Barry at bedside. Wound care assessment and care done.
--- NOTE | 2017-07-02 08:15 | NUR ---
WOUND EVALUATION: Late note for 08 secondary to patient care. Patient received in a [place] Bed with an IsoFlex JOSIE mattress, awake, alert, and oriented. Patient is able to turn in bed independently. Cole Score is a 17. Microbiology: Blood culture results 2 in progress. MRSA screen results in progress. Intrinsic factors that delay wound healing: Diabetes mellitus, hypoalbuminemia. Extrinsic factors that delay wound healing: Decreased mobility. Bilateral lower extremity venous Doppler exam results: "Positive DVT study with thrombus visualized in the left superficial femoral vein to the left popliteal vein." Wound Assessment: 1. Right great toe amputation site: Diabetic foot ulcer with recent amputation, present on admission. Wound bed has 25% yellow slough, 40% black eschar, 20% yellow eschar, 15% pink tissue. Mild odor, scant purulent drainage. Site measures 10.5 cm x 7.5 cm x 0.9 cm. Black sutures and 11 ita observed. Right foot has mild erythema, mild calor, and bilateral feet have 3+ pitting edema. Soft yellow slough area has fluctuance. Recommend continue: Cleanse wound with normal saline. Put moisture barrier cream onto periwound. Apply Venelex ointment onto wound bed. Cover with foam dressing. Wrap with Tee wrap. Perform wound care daily, and as needed for dressing soiling or dislodgment. 2. Left plantar foot on 1st metatarsal head: Chronic diabetic foot ulcer, present on admission. Wound site has 10% black eschar, 90% brown eschar. No odor, no drainage. Dry, stable. Callused periwound. Wound site measures 2.0 cm x 1.5 cm. Small, clear, closed bulla present on medial aspect of first metatarsal head. Recommend continue: Cover with foam dressing to protect site. Continue to monitor site for drainage or worsening condition. 3. Left foot fifth toe, dorsal aspect: Chronic diabetic foot ulcer, present on admission. Wound site has 10% black eschar, 90% white eschar. No odor, no drainage. Dry, stable. Callused periwound. Wound site measures 1.3 cm x 1.3 cm. Recommend continue: No dressing needed. Continue to monitor site for drainage or worsening condition. Also recommend continue: Encourage and assist patient as needed with repositioning every 2 hours with pillow support, and off-load pressure areas with pillows for pressure re-distribution. Offload, elevate and float bilateral heels with pillows. Maintain nonweightbearing status on bilateral feet. Perform skin care and monitor skin integrity Q shift. Use moisture barrier cream on buttocks and other moisture susceptible areas QID and as needed for soiling. Dr. Sunshine present and assessed patient's wounds. Possible debridement plan post imaging results. Pletal was ordered to help improve circulation, and an arterial doppler will be repeated.
[2017-07-02] MEDS: BALSAM PERU/CASTOR OIL 60 GM OINT...G. TP SCH (08:28)
[2017-07-02] MEDS: LINEZOLID 300 ML IV SCH ×2 (08:28→20:08)
[2017-07-02] MEDS: CILOSTAZOL 50 MG TABLET (PLETAL) PO SCH ×2 (08:51→20:07)
--- NOTE | 2017-07-02 10:10 | NUR ---
Rounding: Patient laying in bed resting.
[2017-07-02 11:34] VITALS: BP_SYST 151
--- NOTE | 2017-07-02 12:12 | NUR ---
Rounding: Patient laying in bed resting. IV antibiotics running per MD order. Patient denies pain and discomfort. Morning medications tolerated well. Will continue to monitor.
--- NOTE | 2017-07-02 13:31 | NUR ---
Paging Dr. Young: Paging Dr. Young regarding 2D Echo results. Echo showed large pleural effusion 10 cm. Awaiting callback.
--- NOTE | 2017-07-02 13:40 | NUR ---
Spoke to Dr. Young: Spoke to dr. Young and informed her of Echo results. Orders received. Orders to be entered by RN.
--- NOTE | 2017-07-02 14:00 | NUR ---
Rounding: Patient sitting in bed resting. No distress noted. No current needs. Warm blanket given. Will continue to monitor.
[2017-07-02 15:14] VITALS: BP_SYST 134
--- NOTE | 2017-07-02 15:18 | NUR ---
Rounding: Patient sitting in bed kneeling on bedside table, SOB. Patient on Venturi mask 50% and 15L O2 and still SOB. Will continue to monitor.
[2017-07-02] MEDS ORDERED: FUROSEMIDE 40 MG/4 ML VIAL IVP ONE (15:30)
[2017-07-02 15:38] VITALS: BP_SYST 147
--- NOTE | 2017-07-02 16:16 | NUR ---
Note: Patient meets sepsis criteria. Dr. Velez at bedside. Lactic acid orders were entered and per Dr. Velez "No fluid challenge at this time".
--- NOTE | 2017-07-02 16:29 | NUR ---
Rounding: Patient received breathing treatment. RT at bedside. Patient on venturi mask 35% and 9L o2. Patient breathing better. Patient still sitting in bed bent over bedside table. Will continue to monitor.
--- NOTE | 2017-07-02 16:48 | NUR ---
Paging Dr. Plascencia: Paging Dr. Plascencia to update him on patient status. Awaiting callback.
--- NOTE | 2017-07-02 16:49 | NUR ---
Paging Dr. Young: Paging Dr. Young to update her on patient status. Awaiting callback.
--- NOTE | 2017-07-02 17:05 | NUR ---
Spoke to Dr. Young: Spoke to Dr. Young and reported the results of the ABGS. Told Dr. Young that the patient stated feeling better and breathing easier but patient is still siting on side of bed kneeling over bed side table. Per Dr. Young "If patient starts getting worse transfer him to ICU."
--- NOTE | 2017-07-02 18:14 | NUR ---
Closing Note: Patient sitting in bed bent over side table. Patient denies pain and discomfort. Breathing is even and unlabored with no distress noted. Patient denies SOB. Patient on Venturi mask fio2 35% and 9L o2. Patient has no difficulty breathing. IV patent and intact running heparin drip per protocol. Urinal at bedside. Bed in lowest position, wheels locked, side rails x3, bed alarm activated and call light within reach. All needs met. Will endorse plan of care to NOC, nurse.
--- NOTE | 2017-07-02 19:40 | NUR ---
OPENING NOTE RECEIVED PATIENT AND REPORT FROM DAY SHIFT NURSE. PATIENT IS SITTING UP AWAKE IN BED. PT IS ALERT AND ORIENTED X 4. VENTURI MASK ON AT 35 PERCENT AND 9L. IV SITES ARE INTACT AND PATENT RUNNING IVF PER ORDERS. FALL AND SAFETY PRECAUTIONS IN PLACE. PATIENT REFUSED BED ALARM DESPITE EDUCATION. BED LOCKED IN LOWEST POSITION. PT DENIES ANY PAIN OR DISCOMFORT AT THIS TIME. WILL CONTINUE TO MONITOR.
[2017-07-02 20:00] VITALS: BP_SYST 128
--- NOTE | 2017-07-02 20:00 | NUR ---
MEDICATION ADMINISTRATION/ BLOOD SUGAR ADMINISTERED MEDICATION PER ORDERS. BLOOD SUGAR READING OF 160, ADMINISTERED INSULIN PER SLIDING SCALE. EMPTIED 300 ML OF URINE FROM URINAL. PATIENT DENIES ANY OTHER NEEDS AT THIS TIME. WILL CONTINUE TO MONITOR.
[2017-07-02] MEDS ORDERED: *HEPARIN PER PHARMACY XX PRN (23:30)
--- NOTE | 2017-07-02 23:34 | NUR ---
IV ABX ADMINISTERED IV ABX PER ORDERS. PATIENT RESTING IN BED. NO S/S OF DISTRESS OR DISCOMFORT. CALL LIGHT WITH PATIENT. WILL CONTINUE TO MONITOR.
[2017-07-03] VITALS (15 sets, daily range): BP systolic 102–123
--- NOTE | 2017-07-03 00:35 | NUR ---
ROUNDING NOTE PATIENT IS SLEEPING IN BED. NO S/S OF DISTRESS OR DISCOMFORT. CLOSED DOOR FOR INCREASED COMFORT. CALL LIGHT WITH PATIENT. WILL CONTINUE TO MONITOR.
--- NOTE | 2017-07-03 02:05 | NUR ---
ROUNDING NOTE ADJUSTED IV MACHINE. COVERED PT WITH BLANKETS PER REQUEST. CLOSED DOOR FOR PATIENT COMFORT. CALL LIGHT WITH PATIENT. WILL CONTINUE TO MONITOR.
[2017-07-03] MEDS: IPRATROPIUM/ALBUTEROL SULFATE 3 ML AMPUL.NEB INH SCH ×6 (03:00→22:55)
--- NOTE | 2017-07-03 03:30 | NUR ---
ROOM SWITCH SWITCHED PATIENT TO ROOM 108A, PER REQUEST. NO OTHER NEEDS AT THIS TIME. WILL CONTINUE TO MONITOR.
--- NOTE | 2017-07-03 04:00 | NUR ---
ROUNDING NOTE PATIENT SLEEPING IN BED. PUT NEW BATTERIES IN TELE MONITOR. CALL LIGHT WITH PATIENT, WILL CONTINUE TO MONITOR.
--- NOTE | 2017-07-03 05:30 | NUR ---
ROUNDING NOTE ENCOURAGED PATIENT TO PUT ON O2 MASK. PATIENT VERBALIZED UNDERSTANDING. O2 SATURATION OF 91 PERCENT. CALL LIGHT WITH PATIENT. WILL CONTINUE TO MONITOR.
[2017-07-03] MEDS: PIPERACILLIN/TAZO 2.25G/DEX-IS 50 ML IV SCH ×3 (06:07→18:06)
[2017-07-03] MEDS: INSULIN REGULAR, HUMAN 100 UNITS/ML, 10 ML VIAL (novoLIN R) SUBCUT PRN ×2 (06:12→21:58)
--- NOTE | 2017-07-03 06:14 | NUR ---
MEDICATION ADMINISTRATION/ BLOOD SUGAR ADMINISTERED MEDICATION PER ORDERS. BLOOD SUGAR READING OF 161. COVERAGE GIVEN PER SLIDING SCALE. DENIES ANY NEEDS AT THIS TIME. WILL CONTINUE TO MONITOR.
--- NOTE | 2017-07-03 06:30 | NUR ---
CLOSING NOTE WILL ENDORSE CARE AND REPORT TO DAY SHIFT NURSE. PATIENT IS CURRENTLY SITTING UP IN BED. VENTURI MASK ON AT 35 PERCENT, O2 SATURATION OF 91 PERCENT. PATIENT IS IN STABLE CONDITION AT THIS TIME. FALL AND SAFETY PRECAUTIONS MAINTAINED DURING SHIFT. ROOM SWITCHED DURING SHIFT. HEPARIN DRIP RUNNING WELL, PTT DRAWN BY GENERAL OPERATIONS MANAGER. ALL NEEDS MET THROUGHOUT SHIFT. NO SIGNIFICANT CHANGES TO NOTE DURING SHIFT. CALL LIGHT WITH PATIENT. WILL CONTINUE TO MONITOR.
[2017-07-03 07:23] LABS: HEMATOCRIT 28.2 % (36-54); MEAN CORPUSCULAR HEMOGLOBIN 28 pg (27-31); MEAN CORPUSCULAR HGB CONC 35 % (32-36); MEAN CORPUSCULAR VOLUME 79 fL (79.0-98.0); PLATELET COUNT (AUTO) 701 K/uL (130-430); RED BLOOD CELL COUNT(AUTO) 3.58 MIL/uL (4.2-6.2); RED CELL DISTRIBUTION WIDTH 13.6 % (9.0-15.0); WHITE BLOOD COUNT (AUTO) 21.1 K/uL (4.8-10.8)
--- NOTE | 2017-07-03 07:25 | NUR ---
Opening Note: Patient laying in bed resting. Patient denies pain and discomfort. Breathing is even and unlabored with no distress noted. Patient denies SOB. Patient on Venturi mask 35% with 9L O2, sat between 91-94%. IV patent and intact running heparin drip per protocol. Urinal at bedside. Bed in lowest position, wheels locked, side rails x3, bed alarm activated and call light within reach. Will continue to monitor.
[2017-07-03 07:31] LABS: ALBUMIN 1.4 g/dL (3.4-4.8); CALCIUM 9.1 mg/dL (8.4-11.0); CREATININE 4.3 mg/dL (0.55-1.30); TOTAL BILIRUBIN 0.3 mg/dL (0.0-1.0)
[2017-07-03] MEDS: CILOSTAZOL 50 MG TABLET (PLETAL) PO SCH ×2 (08:32→21:54)
[2017-07-03] MEDS: LINEZOLID 300 ML IV SCH ×2 (08:32→22:04)
[2017-07-03] MEDS: BALSAM PERU/CASTOR OIL 60 GM OINT...G. TP SCH (08:33)
[2017-07-03 09:07] LABS: BAND % (MANUAL) 5 % (0-6); BASOPHILS % (MANUAL) 0 % (0-2); EOSINOPHILS % (MANUAL) 0 % (0-7); LYMPHOCYTES % (MANUAL) 4 % (20-46); MONOCYTES % (MANUAL) 6 % (0-11)
[2017-07-03] MEDS ORDERED: FUROSEMIDE 40 MG/4 ML VIAL IVP ONE (09:45)
--- NOTE | 2017-07-03 10:07 | NUR ---
ASSUMPTION OF CARE PT TRANSFERRED FROM TELEMETRY UNIT. REPORT RECEIVED FROM BRYAN JACOB. PT IS AWAKE, ALERT, ORIENTED X4. BREATHING IS EVEN AND UNLABORED ON VENTURI MASK AT 35%. LUNGS WITH CRACKLES X4. PT REPORTS FEELING "OK" NOW. PT IS TACHYCARDIC, REST OF V/S ARE STABLE. HEPARIN FOR DVT IS HELD AT THIS TIME FOR CRISTINA CATH PLACEMENT AND THORACENTESIS. POC DISCUSSED WITH PT. PT VERBALIZED UNDERSTANDING. CALL LIGHT PLACED ON BED, ENCOURAGED PT TO CALL ME WITH ANY NEEDS.
--- NOTE | 2017-07-03 10:15 | NUR ---
Transferred patient to ICU: Transferred patient to ICU and gave report to Penelope ADAMS. All questions answered.
--- NOTE | 2017-07-03 10:20 | NUR ---
CONSULT CALLED FOR DR. NICHOLS. SPOKE WITH
--- NOTE | 2017-07-03 10:41 | NUR ---
CONSULT CALLED. Paged Dr. Roman. Spoke with Shraddha.
[2017-07-03] MEDS ORDERED: HEPARIN SODIUM,PORCINE 5000 UNITS/ML VIAL ONE (11:42)
--- NOTE | 2017-07-03 13:05 | NUR ---
CRISTINA ATTEMPT CRISTINA PLACEMENT ATTEMPTED TO LCW BY DR NICHOLS. RESISTANCE MET. GUIDE WIRE REMOVED. BANDAGE PLACED.
--- NOTE | 2017-07-03 14:03 | NUR ---
Dietitian Recommendations *Recommend [facility] Renal Standard diet w/ Novasource Renal BID. Oral supplement will provide additional 950 kcal and 42 gm protein daily. Please see Nutritional Assessment for details. MATT, RD
--- NOTE | 2017-07-03 14:12 | NUR ---
DR. CADET RD s/w Dr. CADET regarding new diet order for oral supplement Novasource Renal. agreed.
--- NOTE | 2017-07-03 15:05 | NUR ---
PAGED DR BURCH. SPOKE WITH
--- NOTE | 2017-07-03 15:07 | NUR ---
PAGED DR CADET SPOKE WITH JYOTHI.
--- NOTE | 2017-07-03 15:30 | NUR ---
CRISTINA EVANS CATH PLACED TO RCW BY DR NICHOLS. PT ANGEL WELL
--- NOTE | 2017-07-03 16:15 | NUR ---
WOUND RE-EVALUATION: Patient received in a [place] Bed with an IsoFlex JOSIE mattress, awake, alert, and oriented. Patient is able to turn in bed independently. Cole Score is an 18. Microbiology: Blood culture results 2 in progress. MRSA screen results negative. Intrinsic factors that delay wound healing: Diabetes mellitus, hypoalbuminemia. Extrinsic factors that delay wound healing: Decreased mobility. Bilateral lower extremity venous Doppler exam results: "Positive DVT study with thrombus visualized in the left superficial femoral vein to the left popliteal vein." Wound Assessment: 1. Right great toe amputation site: Diabetic foot ulcer with recent amputation, present on admission. Wound bed has 85% yellow slough, 15% black eschar. No odor, scant purulent drainage. Site measures 10.5 cm x 6.0 cm x 0.9 cm. Black sutures and 11 ita observed. Right foot has mild erythema, mild calor, and bilateral feet have 3+ pitting edema. Soft yellow slough area has fluctuance. Recommend continue: Cleanse wound with normal saline. Put moisture barrier cream onto periwound. Apply Venelex ointment onto wound bed. Cover with foam dressing. Wrap with Tee wrap. Perform wound care daily, and as needed for dressing soiling or dislodgment. 2. Left plantar foot on 1st metatarsal head: Chronic diabetic foot ulcer, present on admission. Wound site has 10% black eschar, 90% brown eschar. No odor, no drainage. Dry, stable. Callused periwound. Wound site measures 2.0 cm x 1.5 cm. Small, clear, closed bulla present on medial aspect of first metatarsal head. Recommend continue: Cover with foam dressing to protect site. Continue to monitor site for drainage or worsening condition. 3. Left foot fifth toe, dorsal aspect: Chronic diabetic foot ulcer, present on admission. Wound site has 10% black eschar, 90% white eschar. No odor, no drainage. Dry, stable. Callused periwound. Wound site measures 1.3 cm x 1.3 cm. Recommend continue: No dressing needed. Continue to monitor site for drainage or worsening condition. Also recommend continue: Encourage and assist patient as needed with repositioning every 2 hours with pillow support, and off-load pressure areas with pillows for pressure re-distribution. Offload, elevate and float bilateral heels with pillows. Maintain nonweightbearing status on bilateral feet. Perform skin care and monitor skin integrity Q shift. Use moisture barrier cream on buttocks and other moisture susceptible areas QID and as needed for soiling.
--- NOTE | 2017-07-03 18:00 | NUR ---
HD HD INITIATED BY HD RNISHAN. PT IS ANGEL WELL.
--- NOTE | 2017-07-03 18:35 | NUR ---
CLOSING NOTE PT RESTING IN BED. ALL NEEDS MET. WILL ENDORSE REPORT TO NOC SHIFT NURSE.
--- NOTE | 2017-07-03 20:00 | NUR ---
pt.assessed.v/s assessed.pt.presents stable status.pt. is presently submitting to hemo-dialysis therapy. pt.submitted to nolvia-cath placement;07/03/17;rt.scv;hemo dialysis was initiated post the placement/ confirmation of the catheter.pt.presents wound;rt.foot;great-toe:s/p amputation:x2wks.lt.foot:plantar; lt;foot;5th digit.pt.presents;cardio;sinus tachycardia.pt.presents respiratory rate;tachypnea.pt.recieving op2 therapy via mask;venti;o2 say%=35% o2 sat%=94%.no c/o, pain.pt's diet status;c/cho;pt.refusing food.boost;glucerna has been ordered.pt.recieving the administration heparin-drip;1400u/min=14ml/hr. ptt:ordered@0500a.current ptt;67.1 call light/telephone placed w/in the pt's reach.
--- NOTE | 2017-07-03 20:30 | NUR ---
telephone re;pt's status.i apprised the pt.submitted to the placement of the nolvia catheter and proceded w/hemo dialysis session.
--- NOTE | 2017-07-03 21:00 | NUR ---
2100p medications administered post hemo dialysis.3litres removed.i have weighed the pt.zyvox;ivpb administered. no c/o pain,nausea.call light/telephone placed w/in the pt's reach.
[2017-07-04] VITALS (25 sets, daily range): BP systolic 93–122
--- NOTE | 2017-07-04 | NUR ---
pt.assessed.v/s assessed;pt.presents sinus tachycardia;cardio.pt.repositioned.no c/o pain,nausea. i have administered zosyn;midnight dose.pt.presents anuric;gu-status.no urine mictrated.o2-sat%= 94%/venti-mask:@35%.call light/telephone placed w/in the pt's reach. Addendum: 07/04/17 at 0504 by Jake Ocampo RN heparin drip assessed.iv access patent,intact.medication infusing.iv site absent inflammation/infiltration.
[2017-07-04] MEDS: PIPERACILLIN/TAZO 2.25G/DEX-IS 50 ML IV SCH ×4 (00:10→17:08)
[2017-07-04] MEDS: IPRATROPIUM/ALBUTEROL SULFATE 3 ML AMPUL.NEB INH SCH ×6 (02:40→23:00)
--- NOTE | 2017-07-04 04:00 | NUR ---
pt.assessed.v/s assessed;pt.presents sinus tachycardia;cardio.o2 sat%=93%per venti-mask: @35%.no c/o pain,nausea.pt.repositioned.heparin-drip assessed;iv access patent medication infusing.via peripheral line.iv access site intact;patent,absent inflammation,infiltration.call light/ telephone w/in the pt's reach.
[2017-07-04] MEDS: INSULIN REGULAR, HUMAN 100 UNITS/ML, 10 ML VIAL (novoLIN R) SUBCUT PRN ×4 (06:07→21:11)
[2017-07-04 06:28] LABS: HEMATOCRIT 28.4 % (36-54); HEMOGLOBIN 9.7 g/dL (14.0-18.0); MEAN CORPUSCULAR HEMOGLOBIN 27 pg (27-31); MEAN CORPUSCULAR HGB CONC 34 % (32-36); MEAN CORPUSCULAR VOLUME 79 fL (79.0-98.0); PLATELET COUNT (AUTO) 698 K/uL (130-430); RED BLOOD CELL COUNT(AUTO) 3.58 MIL/uL (4.2-6.2); RED CELL DISTRIBUTION WIDTH 13.5 % (9.0-15.0); WHITE BLOOD COUNT (AUTO) 19.1 K/uL (4.8-10.8)
[2017-07-04 06:50] LABS: ALBUMIN 1.3 g/dL (3.4-4.8); CREATININE 3.66 mg/dL (0.55-1.30); POTASSIUM 3.4 mmol/L (3.5-5.1); TOTAL BILIRUBIN 0.4 mg/dL (0.0-1.0)
--- NOTE | 2017-07-04 07:30 | NUR ---
RECEIVED REPORT FROM YARED ADAMS. PT IN BED AAOX4, ABLE TO VERBALIZE NEEDS. VSS, SINUS TACHYCARDIA ON MONITOR, HR 115. O2 SAT 95% ON 35% VENTIMASK, PT DENIES SHORTNESS OF BREATH. 20G LAC IV WITH NS TKO. 22RAC WITH HEPARIN DRIP INFUSING AT 1400UNITS/HR. FOAM DRESSINGS NOTED TO BILATERAL FEET, WILL COMPLETE WOUND CARE. LEFT SUBCLAVIAN CRISTINA CATH, DRESSING CDI. PT DENIES PAIN AT THIS TIME. HOB ELEVATED, BED LOCKED AND IN LOWEST POSITION, CALL LIGHT IN REACH. WILL CONTINUE TO MONITOR.
--- NOTE | 2017-07-04 07:35 | NUR ---
MD ROUNDS DR ZENDEJAS HERE TO EVALUATE PT. NO NEW ORDERS RECEIVED AT THIS TIME.
--- NOTE | 2017-07-04 07:57 | NUR ---
AM PTT 66.4, NO CHANGE IN HEPARIN DRIP PER HEPARIN DRIP PROTOCOL, CONTINUE WITH DAILY PTT.
[2017-07-04 08:06] LABS: BAND % (MANUAL) 5 % (0-6)
[2017-07-04 08:07] LABS: BASOPHILS % (MANUAL) 0 % (0-2); EOSINOPHILS % (MANUAL) 0 % (0-7); LYMPHOCYTES % (MANUAL) 6 % (20-46); METAMYELOCYTES % 1 % (0-0); MONOCYTES % (MANUAL) 4 % (0-11)
[2017-07-04] MEDS: CILOSTAZOL 50 MG TABLET (PLETAL) PO SCH ×2 (08:07→20:45)
[2017-07-04] MEDS: LINEZOLID 300 ML IV SCH ×2 (08:07→20:45)
[2017-07-04] MEDS: BALSAM PERU/CASTOR OIL 60 GM OINT...G. TP SCH (08:07)
[2017-07-04] MEDS: HEPARIN 25,000 UNITS in 250 ML PREMIX IV PRN (11:18)
--- NOTE | 2017-07-04 11:30 | NUR ---
FINGERSTICK BLOOD GLUCOSE 256, 6 UNITS INSULIN GIVEN PER SLIDING SCALE ORDERS.
--- NOTE | 2017-07-04 14:00 | NUR ---
MD ROUNDS DR MOORE HERE TO EVALUATE PT. MD AWARE OF AM LABS AND DECREASED URINE OUTPUT. MD TO ORDER HEMODIALYSIS FOR TODAY.
--- NOTE | 2017-07-04 14:12 | NUR ---
PT HAD MEDIUM SOFT BM IN BEDPAN. PT ABLE TO TURN SELF TO POSITION ON BEDPAN. NO SIGNS DISTRESS NOTED, VSS, PT DENIES SHORTNESS OF BREATH/DIFFICULTY WITH MOVING. WILL CONTINUE TO MONITOR.
--- NOTE | 2017-07-04 14:34 | NUR ---
MD ROUNDS DR CADET HERE TO EVALUATE PT. AWARE OF AM LABS. RECEIVED ORDERS FOR TOMORROW AM CXR.
--- NOTE | 2017-07-04 16:10 | NUR ---
WOUND CARE RIGHT GREAT TOE AMPUTATION SITE: CLEANED WITH STERILE NS, PAT DRY, VENELEX TO WOUND BED, ZGUARD TO PERIWOUND, FOAM DRESSING/CLING FORM TO COVER. LEFT PLANTAR FOOT: COVERED WITH FOAM DRESSING. PT TOLERATED WELL, NO SIGNS DISTRESS NOTED, VSS. PT DENIES PAIN DURING WOUND CARE. WILL CONTINUE TO MONITOR.
--- NOTE | 2017-07-04 17:00 | NUR ---
FINGERSTICK BLOOD GLUCOSE 227, 4 UNITS INSULIN GIVEN PER SLIDING SCALE ORDERS.
--- NOTE | 2017-07-04 19:22 | NUR ---
BEDSIDE REPORT GIVEN TO MARBIN ADAMS USING SBAR.
--- NOTE | 2017-07-04 19:25 | NUR ---
Beginning of shift assessment Pt lying in bed receiving Hemodialysis. A&Ox4 able to make needs known, able to follow commands. Pt on venti mask @ 35% FIO2. Respirations shallow. SPO2 @ 96%. No acute distress noted. Pt reports not having any pain. pvc monitor shows sinus tachycardia. IV 22g to R AC infusing Heparin drip @ 1400 u. No s/s of infiltration or infection. 24 g to the L wrist, SL. 20 g to L AC, SL. Sites patent, no s/s of infiltration or infection. Jerry catheter to R subclavian. Multiple dressings noted to bilateral feet, all dressings clean/dry/intact. call light within reach, bed in low position for safety, will continue to monitor
--- NOTE | 2017-07-04 20:31 | NUR ---
Dr. Plascencia Pt reports feeling nauseous. No medications in place for nausea. Dr Plascencia paged.
--- NOTE | 2017-07-04 20:33 | NUR ---
Dr Plascencia Received call back from Dr Plascencia. New order received. Will carry out
[2017-07-04] MEDS ORDERED: ONDANSETRON HCL 4 MG/2 ML VIAL ONE (20:43)
[2017-07-04] MEDS: ONDANSETRON HCL 4 MG/2 ML VIAL IVP PRN (20:45)
[2017-07-05] VITALS (24 sets, daily range): BP systolic 82–116
--- NOTE | 2017-07-05 00:20 | NUR ---
IV PLACEMENT: IV to R AC occluded. IV removed, catheter intact. # 22 gauge angiocath placed to R wrist Use of asceptic technique. Opsite placed over site. Blood return noted. Flushed with 10 cc of normal saline. No evidence of infiltration noted. Patient tolerated well.
[2017-07-05] MEDS: PIPERACILLIN/TAZO 2.25G/DEX-IS 50 ML IV SCH ×5 (00:30→23:11)
--- NOTE | 2017-07-05 01:30 | NUR ---
Desatting Pt desatting between 87-89%. RT notified. Breathing tx administered. Venti mask increased to 50% FIO2. Will continue to monitor
[2017-07-05] MEDS: IPRATROPIUM/ALBUTEROL SULFATE 3 ML AMPUL.NEB INH SCH ×5 (01:33→19:53)
[2017-07-05] MEDS: HEPARIN 25,000 UNITS in 250 ML PREMIX IV PRN ×2 (04:33→23:12)
[2017-07-05] MEDS: INSULIN REGULAR, HUMAN 100 UNITS/ML, 10 ML VIAL (novoLIN R) SUBCUT PRN ×4 (06:24→20:18)
[2017-07-05 06:41] LABS: HEMATOCRIT 27.9 % (36-54); HEMOGLOBIN 9.3 g/dL (14.0-18.0); MEAN CORPUSCULAR HEMOGLOBIN 27 pg (27-31); MEAN CORPUSCULAR HGB CONC 33 % (32-36); MEAN CORPUSCULAR VOLUME 80 fL (79.0-98.0); PLATELET COUNT (AUTO) 661 K/uL (130-430); RED BLOOD CELL COUNT(AUTO) 3.49 MIL/uL (4.2-6.2); RED CELL DISTRIBUTION WIDTH 13.8 % (9.0-15.0); WHITE BLOOD COUNT (AUTO) 13.6 K/uL (4.8-10.8)
[2017-07-05 07:04] LABS: CALCIUM 8.5 mg/dL (8.4-11.0); CREATININE 3.71 mg/dL (0.55-1.30)
[2017-07-05 07:21] LABS: ALBUMIN 1.3 g/dL (3.4-4.8); TOTAL BILIRUBIN 0.2 mg/dL (0.0-1.0)
[2017-07-05] MEDS ORDERED: IPRATROPIUM/ALBUTEROL SULFATE 3 ML AMPUL.NEB ONE (07:22)
--- NOTE | 2017-07-05 07:36 | NUR ---
AM Assessment Pt AAOx4, able to verbalize needs. Pt states no pain or distress at this time. Pt states, "I want to sleep some more. I'm having a good sleep." Respirations even and unlabored on 50% O2 via venti mask. Skin warm and dry. IV 20G LAC, 24G R wrist, 22 L wrist intact, patent, no infiltration noted. Pt on heparin drip 1400 units/hr. R foot in dressing, clean dry, intact, no drainage noted. Adventitious lung sounds. ST on monitor, HR 100s. Bowel sounds present. Bed locked in lowest position. Call light in reach. Will continue to monitor.
[2017-07-05 08:05] LABS: BAND % (MANUAL) 4 % (0-6); BASOPHILS % (MANUAL) 0 % (0-2); EOSINOPHILS % (MANUAL) 2 % (0-7); LYMPHOCYTES % (MANUAL) 11 % (20-46); MONOCYTES % (MANUAL) 3 % (0-11)
--- NOTE | 2017-07-05 08:30 | NUR ---
Patient Round Pt sitting up on side of bed eating breakfast. Pt states no pain or distress at this time. Offered pt to change bed sheets and gown and pt states, "Change it later." IV sites intact, patent, no infiltration noted. Will continue to monitor.
[2017-07-05] MEDS: CILOSTAZOL 50 MG TABLET (PLETAL) PO SCH ×2 (08:52→20:17)
[2017-07-05] MEDS: BALSAM PERU/CASTOR OIL 60 GM OINT...G. TP SCH (08:53)
[2017-07-05] MEDS: LINEZOLID 300 ML IV SCH ×2 (08:53→20:17)
--- NOTE | 2017-07-05 11:30 | NUR ---
Patient Round Pt lying in bed, states no pain or distress at this time. Offered pt his lunch tray, pt states, "I don't want it right now. Maybe later." Informed pt about 2hr policy for food tray, pt states understanding. IV sites intact, patent, no infiltration noted. Also offered to change bed sheets and gown, but pt states, "Please do that later this afternoon." Will continue to monitor.
--- NOTE | 2017-07-05 11:50 | NUR ---
Stomach Pain Patient is asking medication for upset stomach. Paged Dr. Plascencia at this time via exchange. Awaiting call back. Addendum: 07/09/17 at 0145 by Yue Coley RN DISREGARD ENTRY. WRONG DATE
[2017-07-05 12:07] LABS: HEPATITIS A AB, IgM Negative (Negative); HEPATITIS B CORE AB, IgM Negative (Negative); HEPATITIS B SURFACE AG Negative (Negative)
--- NOTE | 2017-07-05 12:47 | NUR ---
Admitting Diagnosis PNEUMONIA Reviewed Pertinent Medical/Surgical Hx Medical Record Patient Medical History Comment: PMH: Renal failure per MD notes. Pt also found w/: DM, HTN, CAD, Sepsis, ARF 2/2 Acute tubular necrosis per MD notes. Per Renal Consult notes: metabolic acidosis. 07/04/17 MD Progress notes: Acute Hypoxic Respiratory Failure, Pneumonia, Pulmonary Edema, Acute/Chronic Renal Failure, LLE DVT, S/P R toe amputation/ cellulitis, Thrombocytosis likely reactive. Subjective Information Pt seen for follow up. Pt reported of improving appetite and better oral intake. Pt reported of eating eggs, pear and coffee. He stated that he did not eat the pancakes because his BG levels have been elevated. He dienied any N/V, last BM was yesterday. He stated that he is tolerating the Novasource Renal BID, and is requesting for another one. +IV infusing. Per EMR, abd is soft and non-distended w/ active bowel sounds. I/O: 618/0 +618ml, IV total intake 400ml per 12 hrs. PO intake 25% x 3 meals. Per RN notes, BED SCALE WT 96 kg 07/04/17. Pt is not yet meeting adequate nutrition w/ current oral intake. Pt may benefit from additional oral supplement. Current Diet Order/Nutrition Support [facility] Renal Standard 2gm Na 3gm K 1gm Phosphorus x 2 days Patient/Significant Other Able To Verbalize Education Provided Not Indicated Pertinent Medications heparin, piperacillin/tazobactam, zofran, SSI Pertinent Labs Na 134L,K 3L, BG 253H, POC BG 244H, BUN 38H, CRE 3.71H, Alb 1.3L, H/H 9.3L/27.9L, WBC 13.6H, RBC 3.49L Height (Feet) 5 feet Height (Inches) 10.00 inches Weight (Pounds) 215 pounds BED SCALE WT: 96 kg (07/04/17 by RN) Weight (Calculated Kilograms) 97.450903 kilograms Patient Weight 97.522 kg Body Mass Index 30.85 kg/m2 %IBW 130 [place]/Adjusted Body Weight 166 lb, 75 kg; ABW Obesity 178 lb, 81 kg Recent Weight Change Yes - wt loss per pt, amount and timeframe unknown. Weight Status Obese Gastrointestinal Symptoms None Last BM July 05, 2017 Usual Diet At Home Diabetic diet per pt. Skin Integrity Comment: Cole scale: 16; per Domestic Helper note 07/03/17: 1. Right great toe amputation site: Diabetic foot ulcer with recent amputation, present on admission. Wound bed has 85% yellow slough, 15% black eschar. No odor, scant purulent drainage. Site measures 10.5 cm x 6.0 cm x 0.9 cm. Black sutures and 11 ita observed. Right foot has mild erythema, mild calor, and bilateral feet have 3+ pitting edema. Soft yellow slough area has fluctuance. 2. Left plantar foot on 1st metatarsal head: Chronic diabetic foot ulcer, present on admission. Wound site has 10% black eschar, 90% brown eschar. No odor, no drainage. Dry, stable. Callused periwound. Wound site measures 2.0 cm x 1.5 cm. Small, clear, closed bulla present on medial aspect of first metatarsal head. 3. Left foot fifth toe, dorsal aspect: Chronic diabetic foot ulcer, present on admission. Wound site has 10% black eschar, 90% white eschar. No odor, no drainage. Dry, stable. Callused periwound. Wound site measures 1.3 cm x 1.3 cm. per RN notes, 2+ pitting edema of LLE, 2+pitting edema of RLE Current % PO Poor 25% Estimated Energy Expenditure (kcals/day) 4719-0333 kcal/day (BEE x 1.2-1.5 IBW for Sepsis) Estimated Protein Required (g/day) 90-98 gm/day (1.2-1.3 gm/kg IBW for Renal Dz on dialysis) Estimated Fluid Required (l/day) per MD (ARF) Problem/Etiology/Signs/Symptoms Increased nutritional needs related to metabolic demands as evidenced by estimated calorie needs for Sepsis. *ongoing Moderate malnutrition related to chronic illness as evidenced by NEGLIGIBLE oral intake and wt loss. *ongoing Expected Outcomes/Goals Monitor pt appetite and oral intake w/ goal of pt meeting at least 75% of estimated nutritional needs, labs trending WNL, normal GI function, skin integrity/wt maintenance. Dietitian Recommendations *Recommend [facility] Renal Standard diet w/ Novasource Renal TID. Oral supplement will provide additional 1425 kcal and 63 gm protein daily. Follow Up High Risk: F/U in 2-3days Addendum: 07/05/17 at [address] Nutrition F/U
--- NOTE | 2017-07-05 13:03 | NUR ---
Dietitian Recommendations *Recommend [facility] Renal Standard diet w/ Novasource Renal TID. Oral supplement will provide additional 1425 kcal and 63 gm protein daily. Please see Nutrition F/U note for details. KRISTEN GUTIERREZ
--- NOTE | 2017-07-05 13:34 | NUR ---
Patient Round Pt sitting up on side of bed eating lunch. Pt states no pain or distress at this time. Will continue to monitor.
[2017-07-05] MEDS ORDERED: POTASSIUM CHLORIDE 20 MEQ TAB.PRT.SR PO ONE (15:00)
--- NOTE | 2017-07-05 16:13 | NUR ---
Patient Round/Wound Care Pt states no pain or distress at this time. Offered pt change in bed sheets and CHG bath, pt refused. Pt did allow for wound care. Dressings changed. Will continue to monitor.
--- NOTE | 2017-07-05 16:25 | NUR ---
WOUND RE-EVALUATION: Patient received in a Kymberly Bed with an IsoFlex JOSIE mattress, awake, alert, and oriented. Patient is able to turn in bed independently. Cole Score is a 16. Microbiology: Blood culture results 2 in progress. Intrinsic factors that delay wound healing: Diabetes mellitus, hypoalbuminemia. Extrinsic factors that delay wound healing: Decreased mobility. Bilateral lower extremity venous Doppler exam results: "Positive DVT study with thrombus visualized in the left superficial femoral vein to the left popliteal vein." Patient is now on a heparin drip. There is a physician order for a surgical consult by Dr. Roman. Wound Assessment: 1. Right great toe amputation site: Diabetic foot ulcer with recent amputation, present on admission. Wound bed has 70% yellow slough, 30% soft black eschar. No odor, scant purulent drainage. Soft yellow slough area has fluctuance. Site measures 10.5 cm x 7.0 cm x 0.9 cm. Black sutures and 11 ita observed. Right foot has very mild mild erythema, no calor. Right foot has 2+ pitting edema. Left foot has 2+ non-pitting edema Recommend continue: Cleanse wound with normal saline. Put moisture barrier cream onto periwound. Apply Venelex ointment onto wound bed. Cover with foam dressing. Wrap with Tee wrap. Perform wound care daily, and as needed for dressing soiling or dislodgment. 2. Left plantar foot on 1st metatarsal head: Chronic diabetic foot ulcer, present on admission. Wound site has 10% black eschar, 90% brown eschar. No odor, no drainage. Dry, stable. Callused periwound. Wound site measures 2.0 cm x 1.5 cm. Small, clear, closed bulla present on medial aspect of first metatarsal head. Recommend continue: Cover with foam dressing to protect site. Continue to monitor site for drainage or worsening condition. 3. Left foot fifth toe, dorsal aspect: Chronic diabetic foot ulcer, present on admission. Wound site has 10% black eschar, 90% white eschar. No odor, no drainage. Dry, stable. Callused periwound. Wound site measures 1.3 cm x 1.3 cm. Recommend continue: No dressing needed. Continue to monitor site for drainage or worsening condition. Also recommend continue: Encourage and assist patient as needed with repositioning every 2 hours with pillow support, and off-load pressure areas with pillows for pressure re-distribution. Offload, elevate and float bilateral heels with pillows. Maintain non weight bearing status on bilateral feet. Perform skin care and monitor skin integrity Q shift. Use moisture barrier cream on buttocks and other moisture susceptible areas QID and as needed for soiling.
--- NOTE | 2017-07-05 19:25 | NUR ---
Closing/Endorsement Pt asleep, arousable. Pt refused linen change and CHG bath. IV sites intact, patent, no infiltration noted. Heparin drip infusing 1300 units per hour. Bed locked in lowest position. Call light in reach. Endorsed plan of care to Alejandro ADAMS.
--- NOTE | 2017-07-05 19:25 | NUR ---
OPENING NOTE PT IN BED RESTING. NO SIGNS OF DISTRESS, NO APPARENT PAIN OR DISCOMFORT. PT REQUESTED NOT TO BE BOTHERED AT THIS TIME AND TO COME BACK AFTER ONE HOUR. SINUS TACHYCARDIA ON THE COPY CENTER OPERATOR IN THE 110'S. O2 SATURATION STABLE. HEPARIN DRIP RUNNING AT 1300 UNITS/HR. WILL CONTINUE OBSERVATION, CARE WILL RESUME THROUGH SHIFT.
[2017-07-06] VITALS (24 sets, daily range): BP systolic 95–128
[2017-07-06] MEDS: IPRATROPIUM/ALBUTEROL SULFATE 3 ML AMPUL.NEB INH SCH ×7 (00:02→23:00)
--- NOTE | 2017-07-06 05:10 | NUR ---
DESATURATION PT DESATURATED TO 86-88% SUSTAINED, PT CLAIMS TO FEEL MODERATELY SOB, RT IS PRESENT AND AWARE, INCREASED FIO2 TO 35%. SATURATIONS INCREASED TO 94%, PT CLAIMS TO FEEL MUCH BETTER. WILL CONTINUE TO OBSERVE.
[2017-07-06] MEDS: PIPERACILLIN/TAZO 2.25G/DEX-IS 50 ML IV SCH ×2 (06:08→11:07)
[2017-07-06] MEDS: INSULIN REGULAR, HUMAN 100 UNITS/ML, 10 ML VIAL (novoLIN R) SUBCUT PRN ×4 (06:10→21:02)
[2017-07-06 06:27] LABS: ALBUMIN 1.3 g/dL (3.4-4.8); CALCIUM 8.6 mg/dL (8.4-11.0); CREATININE 4.79 mg/dL (0.55-1.30); POTASSIUM 3.3 mmol/L (3.5-5.1); TOTAL BILIRUBIN 0.3 mg/dL (0.0-1.0)
[2017-07-06 06:42] LABS: BASOPHILS # (AUTO) 0.1 K/uL (0.0-0.2); BASOPHILS % (AUTO) 0.6 % (0.0-2.0); EOSINOPHILS # (AUTO) 0.6 K/uL (0.0-0.4); EOSINOPHILS % (AUTO) 4.4 % (0.0-4.0); HEMATOCRIT 25.4 % (36-54); HEMOGLOBIN 8.8 g/dL (14.0-18.0); LYMPHOCYTES # (AUTO) 1.8 K/uL (1.0-5.5); LYMPHOCYTES % (AUTO) 12.7 % (20.5-51.5); MEAN CORPUSCULAR HEMOGLOBIN 28 pg (27-31); MEAN CORPUSCULAR HGB CONC 35 % (32-36); MEAN CORPUSCULAR VOLUME 80 fL (79.0-98.0); MONOCYTES # (AUTO) 1.3 K/uL (0.0-1.0); MONOCYTES % (AUTO) 9.5 % (1.7-9.3); NEUTROPHILS # (AUTO) 10.1 K/uL (1.8-7.7); NEUTROPHILS % (AUTO) 72.8 % (40.0-70.0); PLATELET COUNT (AUTO) 630 K/uL (130-430); RED CELL DISTRIBUTION WIDTH 13.7 % (9.0-15.0); WHITE BLOOD COUNT (AUTO) 13.9 K/uL (4.8-10.8)
--- NOTE | 2017-07-06 07:01 | NUR ---
CLOSING NOTE PT IN BED, AWAKE, ALERT. FEELS BETTER AFTER INCREASING FIO2. NO SIGNS OF DISTRESS, NO COMPLAINT OF PAIN OR DISCOMFORT. NO ACUTE CHANGES OTHERWISE. CARE TO RESUME THROUGH TO NEXT SHIFT.
--- NOTE | 2017-07-06 07:30 | NUR ---
RECEIVED REPORT FROM ROSEANN ADAMS. PT IN BED AAOX4, ABLE TO VERBALIZE NEEDS. VSS, NO SIGNS DISTRESS NOTED. O2 SAT 96% ON 35% VENTIMASK. SINUS TACHYCARDIA ON MONITOR. RIGHT SUBCLAVIAN CRISTINA CATH, PT LAST HAD DIALYSIS 07/04. HEPARIN DRIP INFUSING AT 1300 UNITS/HR. PT S/P RIGHT GREAT TOE AMPUTATION, COVERED WITH DRESSING, CLEAN DRY INTACT. PT DENIES PAIN/SHORTNESS OF BREATH AT THIS TIME. HOB ELEVATED, BED LOCKED AND IN LOWEST POSITION, CALL LIGHT IN REACH. WILL CONTINUE TO MONITOR.
[2017-07-06] MEDS: LINEZOLID 300 ML IV SCH ×2 (08:14→20:43)
--- NOTE | 2017-07-06 10:20 | NUR ---
DC Planning: got report from BRYAN Coppola: Pt is AAOX4, ABLE TO VERBALIZE NEEDS. VSS, O2 SAT 96% ON 35% VENTIMASK. SINUS TACHYCARDIA ,RIGHT SUBCLAVIAN CRISTINA CATH, LAST HAD DIALYSIS 07/04. HEPARIN DRIP INFUSING AT 1300 UNITS/HR. PT S/P RIGHT GREAT TOE AMPUTATION. >> CM requested to f/u on Dr. Roman consultation: coretta Keenan, house sup, the md will come in today.
--- NOTE | 2017-07-06 10:30 | NUR ---
MD ROUNDS DR CADET HERE TO EVALUATE PT. AWARE OF DECREASED URINE OUTPUT. MD TO ORDER CXR FOR TOMORROW AM.
--- NOTE | 2017-07-06 11:00 | NUR ---
Called Dr. Roman to follow up on consult, Spoke with Mariana from the exchange
[2017-07-06] MEDS: CILOSTAZOL 50 MG TABLET (PLETAL) PO SCH ×2 (11:06→20:46)
[2017-07-06] MEDS: BALSAM PERU/CASTOR OIL 60 GM OINT...G. TP SCH (11:07)
--- NOTE | 2017-07-06 11:20 | NUR ---
DR. MARCELO / HR ABOVE 130 Paged to report patient's HR above 130. Patient denies chest pain at this time. Addendum: 07/07/17 at 0036 by Yue Coley RN DISREGARD THIS ENTRY> WRONG TIME> ACTUAL TIME NOT 1120 but 2320.
--- NOTE | 2017-07-06 11:30 | NUR ---
FINGERSTICK BLOOD GLUCOSE 263, 6 UNITS INSULIN GIVEN PER SLIDING SCALE ORDERS.
--- NOTE | 2017-07-06 11:35 | NUR ---
NEW ORDERS called back. Reported to him about patient's HR. Orders given. Will follow orders and continue to monitor. Addendum: 07/07/17 at 0038 by Yue Coley RN DISREGARD THIS ENTRY. WRONG TIME.
--- NOTE | 2017-07-06 11:40 | NUR ---
RECEIVED A CALL FROM DONNA JACK EXCHANGE,PER DONNA JACK IS AWARE OF CONSULT HE'S ON HIS WAY TO [place] TO SEE PATIENT
--- NOTE | 2017-07-06 13:30 | NUR ---
WOUND CARE RIGHT GREAT TOE AMPUTATION SITE: CLEANED WITH STERILE NS, PAT DRY, VENELEX TO WOUND BED, ZGUARD TO PERIWOUND, NONADHESIVE FOAM DRESSING AND CLING WRAP TO COVER. PT TOLERATED WELL, DENIES PAIN, NO SIGNS DISTRESS NOTED. WILL CONTINUE TO MONITOR.
--- NOTE | 2017-07-06 14:02 | NUR ---
MD ROUNDS DR MARCELO HERE TO EVALUATE PT. AWARE OF AM LABS/PT GETTING DIALYSIS AT THIS TIME. NO NEW ORDERS RECEIVED AT THIS TIME.
[2017-07-06 14:31] LABS: TOTAL IRON BIND. CAPACITY 96 ug/dL (250-450)
--- NOTE | 2017-07-06 14:50 | NUR ---
MD ROUNDS DR RUIZ HERE TO EVALUATE PT. MADE MD AWARE OF INCREASE IN WBCs AND TACHYCARDIA. MD TO D/C ZOSYN AND ADD CEFEPIME.
--- NOTE | 2017-07-06 15:45 | NUR ---
DIALYSIS COMPLETED AD PER ORDERS BY DR DAVIDSON, 3L OFF. PT TOLERATED WELL, VSS, NO SIGNS DISTRESS NOTED. WILL CONTINUE TO MONITOR.
[2017-07-06] MEDS: CEFEPIME 1 GM in D5W 50 ML IV SCH (16:06)
--- NOTE | 2017-07-06 16:30 | NUR ---
MD ROUNDS DR DAVIDSON HERE TO EVALUATE PT. MD AWARE OF PT'S INCREASED BUN/CREAT, DIALYSIS WITH 3L OFF TODAY, AND OLIGURIA. NO NEW ORDERS RECEIVED AT THIS TIME.
[2017-07-06] MEDS: HEPARIN 25,000 UNITS in 250 ML PREMIX IV PRN (16:54)
--- NOTE | 2017-07-06 19:19 | NUR ---
REPORT GIVEN TO KANDICE ADAMS USING SBAR.
--- NOTE | 2017-07-06 19:20 | NUR ---
OPENING NOTE Patient endorsed by am nurse Anat. Patient alert, oriented x 4, and able to make needs known. VSS. Patient on 35% Ventimask. No sign of respiratory distress observed. Patient on Heparin drip at 1300units/hr. Safety and fall precautions in place. Call light within reach. will continue to monitor.
--- NOTE | 2017-07-06 21:05 | NUR ---
BLOOD GLUCOSE Patient's blood glucose at 195. Two units regular insulin given as coverage per protocol. Will continue to monitor.
--- NOTE | 2017-07-06 21:21 | NUR ---
RN UPDATE Patient resting quietly in bed. No acute distress noted at this time. Rise and fall of chest noted. Safety precaution in place. Will continue to monitor.
--- NOTE | 2017-07-06 23:20 | NUR ---
DR. MARCELO / HR ABOVE 130 Paged to report patient's HR above 130. Patient denies chest pain at this time.
--- NOTE | 2017-07-06 23:35 | NUR ---
NEW ORDERS called back. Reported to him about patient's HR. Orders given. Will follow orders and continue to monitor.
[2017-07-06] MEDS ORDERED: DIGOXIN 0.5 MG/2 ML AMP ONE (23:37)
[2017-07-06] MEDS ORDERED: DIGOXIN 0.5 MG/2 ML AMP IVP ONE (23:45)
[2017-07-06] MEDS ORDERED: DILTIAZEM HCL 125 MG/25 ML VIAL IV ONE (23:56)
[2017-07-07] VITALS (25 sets, daily range): BP systolic 98–129
[2017-07-07] MEDS: DILTIAZEM HCL 125 MG in D5W 100 ML IV SCH ×2 (00:03→08:04)
--- NOTE | 2017-07-07 00:05 | NUR ---
CARDIZEM DRIP Cardizem drip started at this time per order. Initial rate at 15mg/hr. No titration ordered. Hold if HR below 70. Will continue to monitor.
[2017-07-07] MEDS: IPRATROPIUM/ALBUTEROL SULFATE 3 ML AMPUL.NEB INH SCH ×6 (04:08→23:23)
--- NOTE | 2017-07-07 05:29 | NUR ---
CHG REFUSED Patient refused CHG or bed bath. Refused also gown and Linen to be changed.
[2017-07-07] MEDS: INSULIN REGULAR, HUMAN 100 UNITS/ML, 10 ML VIAL (novoLIN R) SUBCUT PRN ×4 (06:30→21:15)
[2017-07-07 06:32] LABS: HEMATOCRIT 27.5 % (36-54); HEMOGLOBIN 9.4 g/dL (14.0-18.0); MEAN CORPUSCULAR HEMOGLOBIN 27 pg (27-31); MEAN CORPUSCULAR HGB CONC 34 % (32-36); MEAN CORPUSCULAR VOLUME 79 fL (79.0-98.0); PLATELET COUNT (AUTO) 608 K/uL (130-430); RED BLOOD CELL COUNT(AUTO) 3.48 MIL/uL (4.2-6.2); WHITE BLOOD COUNT (AUTO) 19.3 K/uL (4.8-10.8)
--- NOTE | 2017-07-07 06:33 | NUR ---
BLOOD GLUCOSE Patient's Blood Glucose at 276. Regular insulin coverage given as ordered.
[2017-07-07 06:39] LABS: CALCIUM 8.5 mg/dL (8.4-11.0); CREATININE 4.08 mg/dL (0.55-1.30); POTASSIUM 3.8 mmol/L (3.5-5.1)
[2017-07-07 06:49] LABS: ALBUMIN 1.5 g/dL (3.4-4.8); PHOSPHORUS 3.8 mg/dL (2.7-4.5); TOTAL BILIRUBIN 0.3 mg/dL (0.0-1.0)
--- NOTE | 2017-07-07 07:00 | NUR ---
ENDORSEMENT Patient endorsed and report given to wilfrid Coppola.
--- NOTE | 2017-07-07 07:20 | NUR ---
RECEIVED REPORT FROM RENY ADAMS. PT AAOX4, ABLE TO VERBALIZE NEEDS. O2 SAT 92% ON 35% VENTIMASK, PT DENIES SHORTNESS OF BREATH AT THIS TIME. SINUS TACHYCARDIA ON MONITOR, HR 115. PT S/P RIGHT GREAT TOE AMPUTATION, DRESSING CLEAN DRY INTACT. RIGHT SUBCLAV CRISTINA CATH, PT HAD DIALYSIS YESTERDAY WITH 3L OFF. HEPARIN DRIP INFUSING AT 1300 UNITS/HR AND CARDIZEM DRIP AT 15MG/HR. PT DENIES PAIN. HOB ELEVATED, BED LOCKED AND IN LOWEST POSITION, CALL LIGHT IN REACH. WILL CONTINUE TO MONITOR.
--- NOTE | 2017-07-07 08:00 | NUR ---
HEPARIN DRIP INCREASED HEPARIN DRIP FROM 1300UNITS/HR TO 1400UNITS/HR (INCREASED BY 100 UNITS/HR) PER PROTOCOL FOR PTT 48.3 AND ORDERS FOR REPEAT PTT AT 1400 TODAY D/T DRIP ADJUSTMENT.
[2017-07-07] MEDS: CILOSTAZOL 50 MG TABLET (PLETAL) PO SCH ×2 (08:02→21:11)
[2017-07-07] MEDS: LINEZOLID 300 ML IV SCH ×2 (08:03→21:11)
[2017-07-07] MEDS: BALSAM PERU/CASTOR OIL 60 GM OINT...G. TP SCH (08:05)
--- NOTE | 2017-07-07 08:40 | NUR ---
MD ROUNDS DR DAVIDSON HERE TO EVALUATE PT. AWARE OF AM LABS. NO NEW ORDERS RECEIVED AT THIS TIME.
--- NOTE | 2017-07-07 09:34 | NUR ---
MD ROUNDS DR CADET HERE TO EVALUATE PT. AWARE PT NOW ON CARDIZEM DRIP AT 15MG/HR. TO ORDER TOMORROW AM CXR.
[2017-07-07 10:10] LABS: BASOPHILS % (MANUAL) 0 % (0-2)
[2017-07-07 10:16] LABS: BAND % (MANUAL) 9 % (0-6); EOSINOPHILS % (MANUAL) 5 % (0-7); LYMPHOCYTES % (MANUAL) 6 % (20-46); MONOCYTES % (MANUAL) 5 % (0-11)
--- NOTE | 2017-07-07 11:15 | NUR ---
FINGERSTICK BLOOD GLUCOSE 306, 8 UNITS INSULIN GIVEN PER SLIDING SCALE ORDERS.
[2017-07-07] MEDS: HEPARIN 25,000 UNITS in 250 ML PREMIX IV PRN (11:59)
[2017-07-07] MEDS: CEFEPIME 1 GM in D5W 50 ML IV SCH (14:21)
--- NOTE | 2017-07-07 15:00 | NUR ---
PT CARE CHG AND WOUND CARE COMPLETE, LINEN/GOWN CHANGED. PT TOLERATED WELL.
--- NOTE | 2017-07-07 15:02 | NUR ---
consult for dr. fernando called spoke to shar dialed [phone]
[2017-07-07] MEDS: metroNIDAZOLE 250 mg/NS 50 ML IV SCH (16:52)
[2017-07-07] MEDS ORDERED: DILTIAZEM HCL 125 MG in D5W 100 ML IV SCH (17:00)
--- NOTE | 2017-07-07 18:20 | NUR ---
ROUNDS DR JACQUES HERE TO EVALUATE PT. SAYS OKAY TO START TITRATING PT OFF CARDIZEM DRIP. AWARE OF ELEVATED TROPONIN LEVELS.
[2017-07-07] MEDS: DILTIAZEM HCL 30 MG TABLET PO SCH (18:30)
--- NOTE | 2017-07-07 19:18 | NUR ---
REPORT GIVEN TO SAMRA ADAMS USING SBAR.
--- NOTE | 2017-07-07 20:39 | NUR ---
Patient awake alert sitting up in bed on 02 via MASK venti @ 35 % verbally indicative skin dry warm HR 108 bpm assist for position change tolerated chest movement symmetrical unlabored / .
--- NOTE | 2017-07-07 20:52 | NUR ---
Patient wanting to sit up on side of bed & lean on Table with pillows , assist also FALL measures implemented , 02 SAT 95 %
--- NOTE | 2017-07-07 22:00 | NUR ---
Blood Sugar @ 248 mg dl 4 units of Regular insulin administer sub q. per sliding scale , patient awake also alert .
--- NOTE | 2017-07-07 23:22 | NUR ---
SBAR REPORT GIVEN TO HARRIS ADAMS .
[2017-07-08] VITALS (24 sets, daily range): BP systolic 93–134
--- NOTE | 2017-07-08 | NUR ---
AAOX4. IN NO APPARENT DISTRESS. DENIES PAIN. ON O2 AT 35% VENTURI MASK. ON HEPARIN DRIP AT 1400 UNITS/HR. .
[2017-07-08] MEDS: DILTIAZEM HCL 30 MG TABLET PO SCH ×5 (00:22→23:59)
[2017-07-08] MEDS: metroNIDAZOLE 250 mg/NS 50 ML IV SCH ×4 (00:22→23:53)
--- NOTE | 2017-07-08 02:00 | NUR ---
AWAKE, SITS UP IN BED. TAKES OFF VENTI-MASK, DESATURATES WHEN MASK IS OFF. VOIDED 100 CC CLOUDY SRINI URINE VIA URINAL. .
--- NOTE | 2017-07-08 04:00 | NUR ---
DOZES ON AND OFF. OCC SEMI- MOIST, NON-PRODUCTIVE COUGH. UNABLE TO EXPECTORATE PHLEGM/MUCUS FOR AFB CULTURE AND SMEAR, FUNGUS MYCOLOGY, GRAM STAIN, SPUTUM CULTURES. VOIDED 50CC CLOUDY SRINI URINE VIA URINAL. HOB UP TO COMFORT. ABLE TO REPOSITION SELF WELL.
[2017-07-08] MEDS: IPRATROPIUM/ALBUTEROL SULFATE 3 ML AMPUL.NEB INH SCH ×6 (04:02→23:00)
[2017-07-08] MEDS: HEPARIN 25,000 UNITS in 250 ML PREMIX IV PRN (04:54)
--- NOTE | 2017-07-08 06:00 | NUR ---
SLEPT INTERMITTENTLY. SITS UP IN BED RESTING HEAD ON SIDE TABLE. ACCU-CHEK 251, 6 UNITS REGULAR INSULIN SQ GIVEN. HEPARIN DRIP AT 1400 UNITS/HR. REMAINS IN GUARDED CONDITION.
[2017-07-08] MEDS: INSULIN REGULAR, HUMAN 100 UNITS/ML, 10 ML VIAL (novoLIN R) SUBCUT PRN ×4 (06:19→21:44)
[2017-07-08 06:41] LABS: HEMATOCRIT 25.4 % (36-54); HEMOGLOBIN 8.4 g/dL (14.0-18.0); MEAN CORPUSCULAR HEMOGLOBIN 26 pg (27-31); MEAN CORPUSCULAR HGB CONC 33 % (32-36); MEAN CORPUSCULAR VOLUME 79 fL (79.0-98.0); PLATELET COUNT (AUTO) 530 K/uL (130-430); RED BLOOD CELL COUNT(AUTO) 3.22 MIL/uL (4.2-6.2); RED CELL DISTRIBUTION WIDTH 13.9 % (9.0-15.0); WHITE BLOOD COUNT (AUTO) 19.3 K/uL (4.8-10.8)
[2017-07-08 06:55] LABS: CALCIUM 8.4 mg/dL (8.4-11.0); CREATININE 4.85 mg/dL (0.55-1.30); POTASSIUM 3.4 mmol/L (3.5-5.1)
[2017-07-08 07:06] LABS: ALBUMIN 1.5 g/dL (3.4-4.8); TOTAL BILIRUBIN 0.2 mg/dL (0.0-1.0)
--- NOTE | 2017-07-08 08:00 | NUR ---
AM ROUNDS: No s/s of distress noted. Will continue to monitor.
--- NOTE | 2017-07-08 08:30 | NUR ---
MD ROUNDS: Dr. Plascencia in to see patient.
[2017-07-08] MEDS: CILOSTAZOL 50 MG TABLET (PLETAL) PO SCH ×2 (08:35→20:53)
[2017-07-08] MEDS: BALSAM PERU/CASTOR OIL 60 GM OINT...G. TP SCH (08:42)
[2017-07-08] MEDS ORDERED: ATORVASTATIN 20 MG TABLET PO SCH (09:00)
[2017-07-08] MEDS ORDERED: ASPIRIN 81 MG TAB.CHEW PO SCH (09:00)
--- NOTE | 2017-07-08 09:10 | NUR ---
Spoke with Dr. Plascencia regarding having come in to see the pt. He said he would give him a call. Informed him that the consult has still not been done by Dr. Roman. He said he was aware.
[2017-07-08 09:11] LABS: BAND % (MANUAL) 6 % (0-6)
[2017-07-08 09:14] LABS: BASOPHILS % (MANUAL) 0 % (0-2); EOSINOPHILS % (MANUAL) 13 % (0-7); METAMYELOCYTES % 7 % (0-0); MONOCYTES % (MANUAL) 9 % (0-11); MYELOCYTES % 1 % (0-0)
[2017-07-08] MEDS: LINEZOLID 300 ML IV SCH ×2 (09:30→20:54)
--- NOTE | 2017-07-08 10:00 | NUR ---
Dr. Plascencia unavailable to speak to pt regarding PICC line. Dr. Young in to see pt and discussed PICC line and answered all questions. Pt consents to it.
[2017-07-08 10:02] LABS: LYMPHOCYTES % (MANUAL) 12 % (20-46)
--- NOTE | 2017-07-08 10:30 | NUR ---
MD ROUNDS: Dr. Matthew in to see patient.
--- NOTE | 2017-07-08 10:45 | NUR ---
Spoke with Dr. Velez regarding PICC line. Okay to insert PICC line.
--- NOTE | 2017-07-08 11:54 | NUR ---
MD ROUNDS: Dr. Santos in to see patient.
--- NOTE | 2017-07-08 14:52 | NUR ---
PICC LINE: Inserted by PICC line nurse to [facility].
[2017-07-08] MEDS: CEFEPIME 1 GM in D5W 50 ML IV SCH (15:13)
--- NOTE | 2017-07-08 15:48 | NUR ---
WOUND RE-EVALUATION: Patient received in a Kymberly Bed with an IsoFlex JOSIE mattress, awake, alert, and oriented. Patient is able to turn in bed independently. Cole Score is a 19. Microbiology: Blood culture results 2 negative. Intrinsic factors that delay wound healing: Diabetes mellitus, hypoalbuminemia. Extrinsic factors that delay wound healing: Decreased mobility. Bilateral lower extremity venous Doppler exam results: "Positive DVT study with thrombus visualized in the left superficial femoral vein to the left popliteal vein." Patient is now on a heparin drip. There is a physician order for a surgical consult by Dr. Roman. Dr. Matthew and Wound Insulation Inspector followed up with Dr. Plascencia today regarding Dr. Roman consult. Dr. Plascencia called Dr. Roman after discussion. Wound Assessment: 1. Right great toe amputation site: Diabetic foot ulcer with recent amputation, present on admission. Wound bed has 55% yellow slough, 40% soft black eschar, 5% brown slough. No odor, scant purulent drainage. Soft yellow slough area has fluctuance. All visible wound tissue is now slough secondary to autolytic debridement. Site measures 10.0 cm x 7.5 cm x 0.9 cm. Black sutures and ita present. Right foot has very mild erythema on luisa-wound only, no calor. Right foot has 1+ pitting edema. Left foot has 1+ non-pitting edema Recommend continue: Cleanse wound with normal saline. Put moisture barrier cream onto periwound. Apply Venelex ointment onto wound bed. Cover with foam dressing. Wrap with Tee wrap. Perform wound care daily, and as needed for dressing soiling or dislodgment. 2. Left plantar foot on 1st metatarsal head: Chronic diabetic foot ulcer, present on admission. Wound site has 10% black eschar, 90% brown eschar. No odor, no drainage. Dry, stable. Callused periwound. Wound site measures 2.0 cm x 1.5 cm. Small, clear, closed bulla present on medial aspect of first metatarsal head. Recommend continue: Cover with foam dressing to protect site. Continue to monitor site for drainage or worsening condition. 3. Left foot fifth toe, dorsal aspect: Chronic diabetic foot ulcer, present on admission. Wound site has 10% black eschar, 90% white eschar. No odor, no drainage. Dry, stable. Callused periwound. Wound site measures 1.3 cm x 1.3 cm. Recommend continue: No dressing needed. Continue to monitor site for drainage or worsening condition. Also recommend continue: Encourage and assist patient as needed with repositioning every 2 hours with pillow support, and off-load pressure areas with pillows for pressure re-distribution. Offload, elevate and float bilateral heels with pillows. Maintain non weight bearing status on bilateral feet. Perform skin care and monitor skin integrity Q shift. Use moisture barrier cream on buttocks and other moisture susceptible areas QID and as needed for soiling.
--- NOTE | 2017-07-08 16:51 | NUR ---
Transfer to [facility] Spoke with Dr. Plascencia regarding orthopedic consult. He said Dr. Roman never called him back and to have the pt transfered to a [facility] for further orthopedic care.
[2017-07-08] MEDS: ONDANSETRON HCL 4 MG/2 ML VIAL IVP PRN (17:18)
--- NOTE | 2017-07-08 19:10 | NUR ---
ASSUMPTION OF CARE Patient endorsed and report given by wilfrid Call.
--- NOTE | 2017-07-08 20:00 | NUR ---
OPENING NOTE Patient awake,alert and oriented x 4 and able to make needs known. VSS. No sign of acute distress noted at this time. Patient remains on venti mask at 35%. No sign of respiratory distress observed. Heparin drip running at 1400units/hr. Safety precautions in place. Call light within reach. Will continue to monitor.
--- NOTE | 2017-07-08 21:45 | NUR ---
PICC LINE Ok to use PICC line on [facility] as per order. All lines/tubings changed. Unused open ports flushed and capped. Heparin drip running at 1400units/hr. Will continue to monitor.
--- NOTE | 2017-07-08 23:50 | NUR ---
Stomach Pain Patient is asking medication for upset stomach. Paged Dr. Plascencia at this time via exchange. Awaiting call back.
[2017-07-09] VITALS (24 sets, daily range): BP systolic 98–123
--- NOTE | 2017-07-09 00:30 | NUR ---
RN UPDATE Asked patient about his stomach pain. Patient states that he "feels better" now. Will continue to monitor.
[2017-07-09] MEDS: IPRATROPIUM/ALBUTEROL SULFATE 3 ML AMPUL.NEB INH SCH ×6 (01:37→23:28)
[2017-07-09] MEDS: ONDANSETRON HCL 4 MG/2 ML VIAL IVP PRN ×2 (01:37→11:23)
--- NOTE | 2017-07-09 01:38 | NUR ---
NAUSEA Patient complains of having nausea. PRN Zofran given as ordered. Will continue to monitor.
--- NOTE | 2017-07-09 02:00 | NUR ---
PATIENT RESTING Patient sleeping quietly. No acute distress noted. Vital signs within normal range. Will continue to monitor.
--- NOTE | 2017-07-09 03:00 | NUR ---
Patient uncomfortable in bed. Asked to be seated because he "feels better" in this position.
--- NOTE | 2017-07-09 05:00 | NUR ---
PATIENT RESTING Patient sleeping quietly. No acute distress noted. Vital signs within normal range. Will continue to monitor.
[2017-07-09] MEDS: DILTIAZEM HCL 30 MG TABLET PO SCH ×3 (06:54→17:10)
[2017-07-09 06:55] LABS: BASOPHILS % (AUTO) 0.2 % (0.0-2.0); EOSINOPHILS # (AUTO) 2.4 K/uL (0.0-0.4); EOSINOPHILS % (AUTO) 13.1 % (0.0-4.0); HEMATOCRIT 23.6 % (36-54); LYMPHOCYTES # (AUTO) 1.7 K/uL (1.0-5.5); LYMPHOCYTES % (AUTO) 9.3 % (20.5-51.5); MEAN CORPUSCULAR HEMOGLOBIN 27 pg (27-31); MEAN CORPUSCULAR HGB CONC 34 % (32-36); MEAN CORPUSCULAR VOLUME 79 fL (79.0-98.0); MONOCYTES # (AUTO) 1.5 K/uL (0.0-1.0); MONOCYTES % (AUTO) 8.3 % (1.7-9.3); NEUTROPHILS # (AUTO) 13.1 K/uL (1.8-7.7); NEUTROPHILS % (AUTO) 69.1 % (40.0-70.0); PLATELET COUNT (AUTO) 478 K/uL (130-430); RED BLOOD CELL COUNT(AUTO) 2.97 MIL/uL (4.2-6.2); RED CELL DISTRIBUTION WIDTH 13.8 % (9.0-15.0)
[2017-07-09] MEDS: INSULIN REGULAR, HUMAN 100 UNITS/ML, 10 ML VIAL (novoLIN R) SUBCUT PRN ×4 (06:58→21:24)
[2017-07-09 06:59] LABS: ALBUMIN 1.6 g/dL (3.4-4.8); CALCIUM 8.6 mg/dL (8.4-11.0); CREATININE 5.51 mg/dL (0.55-1.30); POTASSIUM 3.4 mmol/L (3.5-5.1); TOTAL BILIRUBIN 0.3 mg/dL (0.0-1.0)
[2017-07-09 07:09] LABS: WHITE BLOOD COUNT (AUTO) 18.7 K/uL (4.8-10.8)
--- NOTE | 2017-07-09 07:13 | NUR ---
REPORT: Received from BRYAN Walton for continuation of care.
[2017-07-09] MEDS ORDERED: IPRATROPIUM/ALBUTEROL SULFATE 3 ML AMPUL.NEB ONE (07:48)
[2017-07-09] MEDS: metroNIDAZOLE 250 mg/NS 50 ML IV SCH ×2 (08:40→16:26)
[2017-07-09] MEDS: CILOSTAZOL 50 MG TABLET (PLETAL) PO SCH ×2 (08:55→21:15)
[2017-07-09] MEDS ORDERED: ACETAMINOPHEN 650 MG/20.3 ML UDC PO PRN (09:15)
[2017-07-09] MEDS ORDERED: POTASSIUM CHLORIDE 20 MEQ TAB.PRT.SR PO ONE (09:15)
[2017-07-09] MEDS: BALSAM PERU/CASTOR OIL 60 GM OINT...G. TP SCH (09:41)
[2017-07-09] MEDS: LINEZOLID 300 ML IV SCH ×2 (09:43→21:15)
--- NOTE | 2017-07-09 10:20 | NUR ---
Late Entry--07/08/17: Discussed w CM Director, Gabriela, Dr Roman/paul has not seen pt. Gabriela informed & discussed w Dr Plascencia(Hospitalist/[employer] LENS TECHNICIAN). I spoke w ICU charge nurse, Marilia, states Dr Plascencia is aware & waiting for him to come in again for plan.
--- NOTE | 2017-07-09 11:02 | NUR ---
[facility] PLANNING Order this am to transfer to contracted hospital for further orthopedic care. Called & left msg w Ryanne CREWS , [facility] ph [phone] for contracted hospitals. Spoke w pt @ bedside, aware of transfer & wants to go to [facility]. If not accepted @ [facility] then 2nd choice is [facility]. Discussed w Dr Plascencia in nsg station, states need Higher LOC for Ortho consult & care. Can go to [facility]/Tele bed via [facility] ambulance. Received call back from Farheen, [facility] & [facility] contracted as are most tertiary hospitals. Do not need auth for higher loc, case will be opened @ facility once transferred. Do not need auth for ambulance, most ambulance companies contracted. Called & spoke w Gracy @ [facility], ph [phone] fax [phone], informed of order for higher loc, faxed pt information requested. Received call from pt's , Vivian, wanting update, already aware of order & pt wanting [facility], updated waiting to hear back from [facility]. Addendum: 07/09/17 at 1541 by Zulema Fitzgerald RN Spoke zaid Capellan, charge nurse in ICU, Dr Roman(ortho)came in to see pt today & is planning on saturday. I spoke w pt @ bedside to f/u & states that he spoke w Dr Roman & wants to stay here for debridement or Saturday per Dr Roman. States to call & notify . I called & informed Dr Plascencia, states he will be in to see pt again, no new order given. Called & updated pt's Vivian.
--- NOTE | 2017-07-09 14:00 | NUR ---
Dr. Roman Visit Dr Roman in to see pt. Changed dressing with kerlix to right foot. Dr. Roman said the pt would need a debridement and he would schedule it this saturday. Dr Roman said he would "definitely" be back.
--- NOTE | 2017-07-09 14:15 | NUR ---
Nutrition F/U Admitting Diagnosis PNEUMONIA Reviewed Pertinent Medical/Surgical Hx Medical Record Patient Medical History Comment: PMH: Renal failure per MD notes. Pt also found w/: DM, HTN, CAD, Sepsis, ARF 2/2 Acute tubular necrosis per MD notes. Per Renal Consult notes: metabolic acidosis. 07/04/17 MD Progress notes: Acute Hypoxic Respiratory Failure, Pneumonia, Pulmonary Edema, Acute/Chronic Renal Failure, LLE DVT, S/P R toe amputation/ cellulitis, Thrombocytosis likely reactive. Subjective Information Pt seen for follow up. Pt verbalized to RD at time of visit, that he wants to sleep. Per MD notes, kidney function is not getting better, pending HD this morning. Pt is for transfer to tertiary care hospital per MD notes. Per EMR, abd is soft w/ active bowel sounds. I/O: 318/150 +168ml, IV total intake: 78ml per 12 hrs. PO intake 42% x 3 meals 07/08/17. Last BM 07/09/[address] noticed 2 unopened Novasource Renal at bedside. RD obtained wt w/ bed scale: 222 lb/ 101gm. Pt is not yet meeting optimal nutrition current oral intake. Pt declined nutrition education, as he was provided nutrition education during previous hospital visit. Current Diet Order/Nutrition Support [facility] Renal Standard 2gm Na 3gm K 1gm Phosphorus w/ Novasource Renal TID x 4 days Patient/Significant Other Able To Verbalize Education Provided Not Indicated Pertinent Medications heparin, zofran, SSI, reglan Pertinent Labs Na 124L,K 3.4L, BG 297H, POC BG 251H, BUN 63H, CRE 5.51H, Alb 1.6L, H/H 8L/23.6L, WBC 18.7H, RBC 2.97L Height (Feet) 5 feet Height (Inches) 10.00 inches Weight (Pounds) 215 pounds BED SCALE WT: 96 kg (07/04/17 by RN); 222 lb, 101 gm (07/09/[address]) Weight (Calculated Kilograms) 97.992483 kilograms Patient Weight 97.522 kg Body Mass Index 30.85 kg/m2 %IBW 130 Novi/Adjusted Body Weight 166 lb, 75 kg; ABW Obesity 178 lb, 81 kg Recent Weight Change Yes - wt loss per pt, amount and timeframe unknown. Weight Status Obese Gastrointestinal Symptoms None Last BM July 09, 2017 x 1 Usual Diet At Home Diabetic diet per pt. Skin Integrity Comment: Cole scale: 19; per Telephone Answering Service Operator note 07/08/17: 1. Right great toe amputation site: Diabetic foot ulcer with recent amputation, present on admission. Wound bed has 55% yellow slough, 40% soft black eschar, 5% brown slough. No odor, scant purulent drainage. Soft yellow slough area has fluctuance. All visible wound tissue is now slough secondary to autolytic debridement. Site measures 10.0 cm x 7.5 cm x 0.9 cm. Black sutures and ita present. Right foot has very mild erythema on luisa-wound only, no calor. Right foot has 1+ pitting edema. Left foot has 1+ non-pitting edema. 2. Left plantar foot on 1st metatarsal head: Chronic diabetic foot ulcer, present on admission. Wound site has 10% black eschar, 90% brown eschar. No odor, no drainage. Dry, stable. Callused periwound. Wound site measures 2.0 cm x 1.5 cm. Small, clear, closed bulla present on medial aspect of first metatarsal head. 3. Left foot fifth toe, dorsal aspect: Chronic diabetic foot ulcer, present on admission. Wound site has 10% black eschar, 90% white eschar. No odor, no drainage. Dry, stable. Callused periwound. Wound site measures 1.3 cm x 1.3 cm. per RN notes, 1+ pitting edema of LLE, 1+pitting edema of RLE Current % PO Poor 42% Estimated Energy Expenditure (kcals/day) 9924-1741 kcal/day (BEE x 1.2-1.5 IBW for Sepsis) Estimated Protein Required (g/day) 90-98 gm/day (1.2-1.3 gm/kg IBW for Renal Dz on dialysis) Estimated Fluid Required (l/day) per MD (ARF) Problem/Etiology/Signs/Symptoms Increased nutritional needs related to metabolic demands as evidenced by estimated calorie needs for Sepsis. *ongoing Moderate malnutrition related to chronic illness as evidenced by NEGLIGIBLE oral intake and wt loss. *oral intake is improving Expected Outcomes/Goals Monitor pt appetite and oral intake w/ goal of pt meeting at least 75% of estimated nutritional needs, labs trending WNL, normal GI function, skin integrity/wt maintenance. Dietitian Recommendations *Recommend continuing [facility] Renal Standard diet w/ Novasource Renal TID. Oral supplement will provide additional 1425 kcal and 63 gm protein daily. Follow Up High Risk: F/U in 2-3days
--- NOTE | 2017-07-09 14:28 | NUR ---
Dietitian Recommendations *Recommend continuing [facility] Renal Standard diet w/ Novasource Renal TID. Oral supplement will provide additional 1425 kcal and 63 gm protein daily. Please see Nutrition F/U notes for details. MATT, RD
[2017-07-09] MEDS: CEFEPIME 1 GM in D5W 50 ML IV SCH (15:08)
--- NOTE | 2017-07-09 18:49 | NUR ---
CLOSING NOTE: All needs met. Patient is on O2 via Venti Mask at 35%. Heparin drip at 1500u/hr. Hemodialysis performed today, 2.5L was taken out. Will endorse to NOC shift nurse.
--- NOTE | 2017-07-09 19:05 | NUR ---
ASSUMPTION OF CARE Patient endorsed by am nurse Jakub. Patient resting comfortably in bed. VSS. No sign of acute distress noted at this time. Safety precaution in place. Call light within reach. Will continue to monitor.
--- NOTE | 2017-07-09 21:00 | NUR ---
RN UPDATE Patient resting quietly in bed. No sign of acute distress noted at this time. VSS. Safety precaution in place. Call light within reach. Will continue to monitor.
[2017-07-09] MEDS ORDERED: ZOLPIDEM TARTRATE 5 MG TABLET ONE (21:14)
[2017-07-09] MEDS: ZOLPIDEM TARTRATE 5 MG TABLET PO PRN (21:15)
--- NOTE | 2017-07-09 23:15 | NUR ---
LAB REDRAW PTT LAB DRAW ordered for 2029H today was redrawn at this time due PICC LINE draw got contaminated. Will await result.
[2017-07-10] VITALS (24 sets, daily range): BP systolic 93–131
--- NOTE | 2017-07-10 00:30 | NUR ---
Heparin Drip PTT result at 90.6 at this time. Heparin Infusion decreased by 100units/hr per protocol. Heparin drip now at 1400units/hr. Repeat PTT will be drawn in 6 hours. Will continue to monitor.
[2017-07-10] MEDS: DILTIAZEM HCL 30 MG TABLET PO SCH ×4 (00:48→17:59)
[2017-07-10] MEDS: metroNIDAZOLE 250 mg/NS 50 ML IV SCH ×3 (00:57→15:54)
[2017-07-10] MEDS: IPRATROPIUM/ALBUTEROL SULFATE 3 ML AMPUL.NEB INH SCH ×6 (03:00→23:12)
--- NOTE | 2017-07-10 03:13 | NUR ---
RN UPDATE Patient sitting up on the side of the bed. VSS. Safety precaution in place. Call light within reach. Will continue to monitor.
[2017-07-10] MEDS: ONDANSETRON HCL 4 MG/2 ML VIAL IVP PRN (04:38)
[2017-07-10] MEDS: HEPARIN 25,000 UNITS in 250 ML PREMIX IV PRN (05:04)
[2017-07-10] MEDS: INSULIN REGULAR, HUMAN 100 UNITS/ML, 10 ML VIAL (novoLIN R) SUBCUT PRN ×4 (06:17→21:18)
[2017-07-10 07:08] LABS: BASOPHILS # (AUTO) 0.1 K/uL (0.0-0.2); BASOPHILS % (AUTO) 0.3 % (0.0-2.0); EOSINOPHILS # (AUTO) 2.8 K/uL (0.0-0.4); EOSINOPHILS % (AUTO) 15.3 % (0.0-4.0); HEMOGLOBIN 7.3 g/dL (14.0-18.0); LYMPHOCYTES # (AUTO) 1.8 K/uL (1.0-5.5); LYMPHOCYTES % (AUTO) 9.7 % (20.5-51.5); MEAN CORPUSCULAR HEMOGLOBIN 27 pg (27-31); MEAN CORPUSCULAR HGB CONC 35 % (32-36); MEAN CORPUSCULAR VOLUME 79 fL (79.0-98.0); MONOCYTES # (AUTO) 1.7 K/uL (0.0-1.0); MONOCYTES % (AUTO) 9.1 % (1.7-9.3); NEUTROPHILS # (AUTO) 12.1 K/uL (1.8-7.7); NEUTROPHILS % (AUTO) 65.6 % (40.0-70.0); PLATELET COUNT (AUTO) 425 K/uL (130-430); RED BLOOD CELL COUNT(AUTO) 2.67 MIL/uL (4.2-6.2); RED CELL DISTRIBUTION WIDTH 13.8 % (9.0-15.0); WHITE BLOOD COUNT (AUTO) 18.5 K/uL (4.8-10.8)
[2017-07-10 07:11] LABS: ALBUMIN 1.6 g/dL (3.4-4.8); CALCIUM 8.3 mg/dL (8.4-11.0); CREATININE 4.43 mg/dL (0.55-1.30); POTASSIUM 3.2 mmol/L (3.5-5.1); TOTAL BILIRUBIN 0.3 mg/dL (0.0-1.0)
--- NOTE | 2017-07-10 07:20 | NUR ---
ENDORSEMENT Patient endorsed to am nurse Gena. All needs met this shift.
--- NOTE | 2017-07-10 07:30 | NUR ---
ASSUMPTION OF CARE: RECEIVED PT A/A/OX4, DX:INADEQUATE VENTILATION, R/T PNEUMONIA, BREATH SOUNDS ARE CLEAR, DIMINISHED, SATURATING 98% WHILE ON FIO2 35% VIA VM, BREATHING UNLABORED, IV SITE INTACT, PATENT, NO REDNESS OR SWELLING, HEPARIN DRIP INFUSING @1400 UNITS/HR, VSS, NO S/S OF DISTRESS, ORIENTED TO UNIT, CALL LIGHT PLACED WITHIN REACH, WILL CONT' TO MONITOR AND ASSESS.
--- NOTE | 2017-07-10 07:35 | NUR ---
CALLED: PAGED DR ZENDEJAS [phone] SPOKE WITH GIO.
--- NOTE | 2017-07-10 07:50 | NUR ---
CRITICAL LAB RESULTS: SPOKE WITH VIA TELEPHONE, REPORT OF HGB=7.3/21.0 GIVEN, NO NEW ORDERS AT THIS TIME, STATES "I WILL SEE THE PT."
--- NOTE | 2017-07-10 09:00 | NUR ---
TACTICAL DEBRIEFER: MORNING MEDS GIVEN, PER ORDERED BY Barron, TOLERATED WELL, WILL CONT' WITH POC.
[2017-07-10] MEDS: CILOSTAZOL 50 MG TABLET (PLETAL) PO SCH ×2 (09:10→21:14)
[2017-07-10] MEDS: LINEZOLID 300 ML IV SCH ×2 (09:10→21:13)
[2017-07-10] MEDS: BALSAM PERU/CASTOR OIL 60 GM OINT...G. TP SCH (09:19)
[2017-07-10] MEDS ORDERED: POTASSIUM CHLORIDE 20 MEQ TAB.PRT.SR PO ONE ×2 (09:30→17:00)
[2017-07-10] MEDS ORDERED: FUROSEMIDE 40 MG/4 ML VIAL IVP ONE (09:30)
--- NOTE | 2017-07-10 09:30 | NUR ---
HEPARIN DRIP: PTT=76.2, HEPARIN DRIP TITRATED TO 1300 UNITS/HR, ORDER FOR PTT IN 6 HRS, WILL CONT' WITH POC.
--- NOTE | 2017-07-10 11:30 | NUR ---
GLUCOSE MONITORING: BLOOD SUGAR BLBNB=503, 6 UNITS REGULAR INSULIN GIVEN SQ, TOLERATED WELL, CALL LIGHT PLACED WITHIN REACH, WILL CONT' TO MONITOR AND ASSESS.
[2017-07-10 14:07] LABS: ATYPICAL pANCA <1:20 titer (Neg:<1:20); CYTOPLASMIC (C-ANCA) <1:20 titer (Neg:<1:20); CYTOPLASMIC (P-ANCA) <1:20 titer (Neg:<1:20)
--- NOTE | 2017-07-10 15:30 | NUR ---
WOUND CARE: WOUND CARE COMPLETED, DRSG CHANGES DONE, PICTURES WITH MEASUREMENTS TAKEN AND PLACED IN CHART, TOLERATED WELL, WILL CONT' WITH POC.
--- NOTE | 2017-07-10 15:30 | NUR ---
HEPARIN DRIP: PTT=57.0, NO CHANGES TO HEPARIN DRIP, REMAINS AT 1300 UNITS/HR, ORDER FOR PTT IN 6 HRS, WILL CONT' WITH POC.
--- NOTE | 2017-07-10 15:30 | NUR ---
WOUND RE-EVALUATION: Patient received in a Dukedom Bed with an IsoFlex JOSIE mattress, awake, alert, and oriented. Patient is able to turn in bed independently. Cole Score is a 19. Intrinsic factors that delay wound healing: Diabetes mellitus, hypoalbuminemia. Extrinsic factors that delay wound healing: Decreased mobility. Spoke with Dr. Plascencia today, and said that Dr. Roman saw the patient and will possibly perform debridement on Saturday. Wound Assessment: 1. Right great toe amputation site: Diabetic foot ulcer with recent amputation, present on admission. Wound bed has 55% yellow slough, 40% soft black eschar, 5% brown slough. No odor, scant purulent drainage. Soft yellow slough area has fluctuance. All visible wound tissue is now slough secondary to autolytic debridement. Site measures 11.5 cm x 6.0 cm x 0.8 cm. Black sutures and ita present. Right foot has pink coloration on luisa-wound only, no calor. Right foot has 3+ pitting edema. Left foot has 3+ pitting edema Recommend continue: Cleanse wound with normal saline. Put moisture barrier cream onto periwound. Apply Venelex ointment onto wound bed. Cover with foam dressing. Wrap with Tee wrap. Perform wound care daily, and as needed for dressing soiling or dislodgment. 2. Left plantar foot on 1st metatarsal head: Chronic diabetic foot ulcer, present on admission. Wound site has 10% black eschar, 90% brown eschar. No odor, no drainage. Dry, stable. Callused periwound. Wound site measures 2.0 cm x 1.5 cm. Small, clear, closed hard bulla present on medial aspect of first metatarsal head. Recommend continue: Cover with foam dressing to protect site. Continue to monitor site for drainage or worsening condition. 3. Left foot fifth toe, dorsal aspect: Chronic diabetic foot ulcer, present on admission. Wound site has 10% black eschar, 90% white eschar. No odor, no drainage. Dry, stable. Callused periwound. Wound site measures 1.3 cm x 1.3 cm. Recommend continue: No dressing needed. Continue to monitor site for drainage or worsening condition. Also recommend continue: Encourage and assist patient as needed with repositioning every 2 hours with pillow support, and off-load pressure areas with pillows for pressure re-distribution. Offload, elevate and float bilateral heels with pillows. Maintain non weight bearing status on bilateral feet. Perform skin care and monitor skin integrity Q shift. Use moisture barrier cream on buttocks and other moisture susceptible areas QID and as needed for soiling.
[2017-07-10] MEDS: CEFEPIME 1 GM in D5W 50 ML IV SCH (15:54)
[2017-07-10] MEDS: HYDROcodone/ACETAMIN 5-325 MG TAB (NORCO/ VICODIN) PO PRN ×2 (15:54→22:03)
--- NOTE | 2017-07-10 17:00 | NUR ---
GLUCOSE MONITORING: BLOOD SUGAR XQQGT=[id number], 4 UNITS REGULAR INSULIN GIVEN SQ, TOLERATED WELL, CALL LIGHT PLACED WITHIN REACH, WILL CONT' TO MONITOR AND ASSESS.
[2017-07-10] MEDS: FUROSEMIDE 40 MG/4 ML VIAL IVP SCH (21:14)
--- NOTE | 2017-07-10 21:20 | NUR ---
BLOOD GLUCOSE Patient's blood glucose at 216. Four units of regular insulin given for coverage as per protocol/order. Will continue to monitor.
[2017-07-11] VITALS (25 sets, daily range): BP systolic 92–121
[2017-07-11] MEDS: DILTIAZEM HCL 30 MG TABLET PO SCH ×3 (00:34→11:02)
[2017-07-11] MEDS: metroNIDAZOLE 250 mg/NS 50 ML IV SCH ×4 (00:34→23:36)
[2017-07-11] MEDS: IPRATROPIUM/ALBUTEROL SULFATE 3 ML AMPUL.NEB INH SCH ×5 (02:26→19:44)
[2017-07-11] MEDS: HEPARIN 25,000 UNITS in 250 ML PREMIX IV PRN ×2 (02:34→17:22)
[2017-07-11 06:53] LABS: HEMOGLOBIN 7.1 g/dL (14.0-18.0); MEAN CORPUSCULAR HEMOGLOBIN 28 pg (27-31); MEAN CORPUSCULAR HGB CONC 35 % (32-36); MEAN CORPUSCULAR VOLUME 80 fL (79.0-98.0); PLATELET COUNT (AUTO) 412 K/uL (130-430); RED BLOOD CELL COUNT(AUTO) 2.56 MIL/uL (4.2-6.2); RED CELL DISTRIBUTION WIDTH 14.1 % (9.0-15.0)
[2017-07-11 07:08] LABS: HEMATOCRIT 20.3 % (36-54)
[2017-07-11 07:23] LABS: ALBUMIN 1.8 g/dL (3.4-4.8); CALCIUM 8.5 mg/dL (8.4-11.0); CREATININE 4.99 mg/dL (0.55-1.30); POTASSIUM 4.2 mmol/L (3.5-5.1); TOTAL BILIRUBIN 0.3 mg/dL (0.0-1.0)
[2017-07-11] MEDS: INSULIN REGULAR, HUMAN 100 UNITS/ML, 10 ML VIAL (novoLIN R) SUBCUT PRN ×4 (07:25→22:50)
--- NOTE | 2017-07-11 07:30 | NUR ---
RECEIVED REPORT FROM KANDICE ADAMS. PT AAOX4, ABLE TO VERBALIZE NEEDS. VSS, SR ON MONITOR. 02 SAT 95% ON VENTIMASK 35%, PT DENIES SHORTNESS OF BREATH, UNLABORED RESPIRATIONS. PT S/P RIGHT GREAT TOE AMPUTATION, DRESSING CLEAN DRY INTACT, WILL COMPLETE WOUND CARE TODAY. EH PICC WITH HEPARIN DRIP AT 1300 UNITS/HR INFUSING. RIGHT SUBCLAVIAN CRISTINA CATH, PT DUE FOR DIALYSIS TODAY. PT DENIES PAIN AT THIS TIME. HOB ELEVATED, BED LOCKED AND IN LOWEST POSITION, CALL LIGHT IN REACH. WILL CONTINUE TO MONITOR.
[2017-07-11] MEDS: LINEZOLID 300 ML IV SCH ×2 (08:24→22:23)
[2017-07-11] MEDS: BALSAM PERU/CASTOR OIL 60 GM OINT...G. TP SCH (08:26)
[2017-07-11] MEDS: CILOSTAZOL 50 MG TABLET (PLETAL) PO SCH ×2 (08:26→22:23)
[2017-07-11] MEDS: FUROSEMIDE 40 MG/4 ML VIAL IVP SCH ×2 (08:26→22:21)
--- NOTE | 2017-07-11 09:00 | NUR ---
MD ROUNDS DR ZENDEJAS HERE TO EVALUATE PT. AWARE OF AM LABS, H&H. NO NEW ORDERS RECEIVED AT THIS TIME.
[2017-07-11 09:18] LABS: BAND % (MANUAL) 10 % (0-6); LYMPHOCYTES % (MANUAL) 14 % (20-46)
[2017-07-11 09:19] LABS: BASOPHILS % (MANUAL) 0 % (0-2); EOSINOPHILS % (MANUAL) 10 % (0-7); METAMYELOCYTES % 3 % (0-0); MONOCYTES % (MANUAL) 5 % (0-11); MYELOCYTES % 1 % (0-0)
--- NOTE | 2017-07-11 09:36 | NUR ---
ROUNDS DR MOORE HERE TO EVALUATE PT. RECEIVED ORDERS FOR HEMODIALYSIS. Addendum: 07/11/17 at 0950 by Anat Saab RN MADE AWARE OF MD Hannah TO ORDER PRBC.
--- NOTE | 2017-07-11 11:48 | NUR ---
MD ROUNDS DR RUIZ HERE TO EVALUATE PT. AWARE OF AM LABS/WBC ELEVATED. NO NEW ORDERS RECEIVED AT THIS TIME.
--- NOTE | 2017-07-11 15:30 | NUR ---
MD ROUNDS DR CADET HERE TO EVALUATE PT. MD TO ORDER CXR FOR TOMORROW AM.
--- NOTE | 2017-07-11 15:43 | NUR ---
DIALYSIS DIALYSIS COMPLETED BY IMPORT AND EXPORT CLERK, 3.3L TAKEN OFF. PT TOLERATED WELL, VSS, NO SIGNS DISTRESS. WILL CONTINUE TO MONITOR.
[2017-07-11] MEDS: CEFEPIME 1 GM in D5W 50 ML IV SCH (15:50)
--- NOTE | 2017-07-11 16:09 | NUR ---
CHG BATH GIVEN. WOUND CARE COMPLETED: RIGHT GREAT TOE AMPUTATION SITE CLEANED WITH NS, PAT DRY, VENELEX TO WOUND BED, ZGUARD TO PERIWOUND, COVERED WITH NONADHESIVE FOAM AND CLINGFORM. PT TOLERATED WELL, VSS, NO SIGNS DISTRESS NOTED, PT DENIES PAIN. WILL CONTINUE TO MONITOR.
[2017-07-11] MEDS ORDERED: DILTIAZEM HCL 60 MG TABLET ONE (16:48)
--- NOTE | 2017-07-11 17:00 | NUR ---
MD ROUNDS DR GONSALEZ HERE TO EVALUATE PT. AWARE PT STILL TACHYCARDIC. TO CHANGE PO CARDIZEM DOSAGE, ORDERS TO GIVE 60MG PO CARDIZEM NOW.
--- NOTE | 2017-07-11 19:16 | NUR ---
ENDORSED CARE TO ASHLYN ADAMS USING SBAR.
[2017-07-11] MEDS: ONDANSETRON HCL 4 MG/2 ML VIAL IVP PRN (19:56)
--- NOTE | 2017-07-11 20:00 | NUR ---
ASSESSMENT Pt alert/ oriented to self, time and place. Oxygen @ 35% VM. O2 sat greater than 95%. PICC line present right upper arm with Heparin drip infusing. Right subclavian Jerry present with dressing dry and intact. Edema present bilateral upper & lower extremities. Dressing present right foot, covering post-op incision. Wounds present left foot with dressings intact.
[2017-07-11] MEDS: DILTIAZEM HCL 60 MG TABLET PO SCH (22:21)
[2017-07-11] MEDS: HYDROcodone/ACETAMIN 5-325 MG TAB (NORCO/ VICODIN) PO PRN (22:22)
[2017-07-11] MEDS: ZOLPIDEM TARTRATE 5 MG TABLET PO PRN (22:22)
[2017-07-11] MEDS: METOCLOPRAMIDE HCL 10 MG/2 ML VIAL IVP PRN (22:57)
--- NOTE | 2017-07-11 23:00 | NUR ---
TRANSFER OF CARE Receive report from PM shift RN. Pt in bed sleeping tolerating venti mask with 95%, no acute distress at this time. Bilateral lower extremity edema noted. Sinus tachycardia on the monitor. No acute distress at this time. Safety precaution observed. Call light within reach. Will continue to monitor Pt.
[2017-07-12] VITALS (23 sets, daily range): BP systolic 84–144
--- NOTE | 2017-07-12 | NUR ---
RN ROUNDS Pt in bed sleeping, no acute distress at this time. Will continue to monitor Pt.
--- NOTE | 2017-07-12 01:25 | NUR ---
DR GUERO Roman called, making Pt NPO except for Medications. He stated he will be taking Pt to surgery today.
--- NOTE | 2017-07-12 04:00 | NUR ---
RN ROUNDS Pt in bed sitting down no acute distress at this time. Will continue to monitor Pt.
[2017-07-12] MEDS: DILTIAZEM HCL 60 MG TABLET PO SCH ×3 (06:21→21:34)
[2017-07-12] MEDS: INSULIN REGULAR, HUMAN 100 UNITS/ML, 10 ML VIAL (novoLIN R) SUBCUT PRN ×4 (06:22→21:43)
[2017-07-12 06:32] LABS: HEMOGLOBIN 7.1 g/dL (14.0-18.0); MEAN CORPUSCULAR HEMOGLOBIN 28 pg (27-31); MEAN CORPUSCULAR HGB CONC 35 % (32-36); MEAN CORPUSCULAR VOLUME 81 fL (79.0-98.0); RED BLOOD CELL COUNT(AUTO) 2.53 MIL/uL (4.2-6.2); RED CELL DISTRIBUTION WIDTH 14.7 % (9.0-15.0)
--- NOTE | 2017-07-12 06:35 | NUR ---
CLOSING NOTES Pt in bed sleeping, no acute distress at this time. Will give report to oncoming RN.
[2017-07-12 06:39] LABS: HEMATOCRIT 20.4 % (36-54)
[2017-07-12 06:50] LABS: ALBUMIN 1.8 g/dL (3.4-4.8); CALCIUM 8.6 mg/dL (8.4-11.0); CREATININE 3.86 mg/dL (0.55-1.30); POTASSIUM 4.1 mmol/L (3.5-5.1); TOTAL BILIRUBIN 0.3 mg/dL (0.0-1.0)
--- NOTE | 2017-07-12 07:20 | NUR ---
RECEIVED REPORT FROM KATTY ADAMS. PT AAOX4, ABLE TO VERBALIZE NEEDS. PT ON 35% VENTIMASK, O2 SAT 94%, PT DENIES SHORTNESS OF BREATH AT THIS TIME. SINUS TACHYCARDIA ON MONITOR. PT CURRENTLY NPO D/T SCHEDULED DEBRIDEMENT OF RIGHT FOOT WOUND TODAY. EH PICC WITH HEPARIN DRIP INFUSING AT 1300 UNITS/HR. RIGHT SUBCLAVIAN CRISTINA, PT S/P DIALYSIS YESTERDAY. PT DENIES PAIN AT THIS TIME. HOB ELEVATED, BED LOCKED AND IN LOWEST POSITION, CALL LIGHT IN REACH. WILL CONTINUE TO MONITOR.
[2017-07-12] MEDS: IPRATROPIUM/ALBUTEROL SULFATE 3 ML AMPUL.NEB INH SCH ×5 (07:47→23:00)
[2017-07-12] MEDS: LINEZOLID 300 ML IV SCH ×2 (08:00→21:34)
[2017-07-12] MEDS: FUROSEMIDE 40 MG/4 ML VIAL IVP SCH ×2 (08:06→21:33)
[2017-07-12] MEDS: CILOSTAZOL 50 MG TABLET (PLETAL) PO SCH ×2 (08:06→21:33)
[2017-07-12] MEDS: BALSAM PERU/CASTOR OIL 60 GM OINT...G. TP SCH (08:07)
[2017-07-12 08:25] LABS: PLATELET COUNT (AUTO) 370 K/uL (130-430)
[2017-07-12 08:26] LABS: BAND % (MANUAL) 4 % (0-6); BASOPHILS % (MANUAL) 0 % (0-2); EOSINOPHILS % (MANUAL) 3 % (0-7); LYMPHOCYTES % (MANUAL) 14 % (20-46); METAMYELOCYTES % 3 % (0-0); MONOCYTES % (MANUAL) 6 % (0-11); MYELOCYTES % 1 % (0-0)
--- NOTE | 2017-07-12 09:15 | NUR ---
RT TITRATED FIO2 TO 40%, O2 SAT 96%, NO SIGNS DISTRESS NOTED, WILL CONTINUE TO MONITOR. Addendum: 07/12/17 at 1730 by Anat Saab RN [facility]T [facility].
--- NOTE | 2017-07-12 09:20 | NUR ---
MD ROUNDS DR ZENDEJAS HERE TO EVALUATE PT. AWARE OF AM LABS AND PT TO RECEIVED 1 UNIT PRBC ASPER ORDERS FROM DR MARCELO. NO NEW ORDERS RECEIVED AT THIS TIME.
[2017-07-12] MEDS: metroNIDAZOLE 250 mg/NS 50 ML IV SCH ×3 (09:28→23:59)
--- NOTE | 2017-07-12 11:30 | NUR ---
FINGERSTICK BLOOD GLUCOSE 240, 4 UNITS INSULIN GIVEN PER SLIDING SCALE ORDERS.
--- NOTE | 2017-07-12 11:55 | NUR ---
HEPARIN DRIP HEPARIN DRIP TURNED OFF D/T SCHEDULED DEBRIDEMENT AT 1300 TODAY.
--- NOTE | 2017-07-12 12:57 | NUR ---
DC PLANNING Received msg from Ryanne Laurent Clinical DC coordinator ph [phone], requesting update on dc plan. Called & left msg no dc planning order yet but will need HD set up & anticipate SNF. Asked for fax/call back w contracted SNF list, HD center, & ambulance.
[2017-07-12] MEDS: CEFEPIME 1 GM in D5W 50 ML IV SCH (14:05)
--- NOTE | 2017-07-12 15:30 | NUR ---
MD ROUNDS DR RUIZ HERE TO EVALUATE PT. NO NEW ORDERS RECEIVED AT THIS TIME.
--- NOTE | 2017-07-12 16:19 | NUR ---
MD ROUNDS DR CADET HERE TO EVALUATE PT. RECEIVED ORDERS FOR TOMORROW AM CT CHEST W/O CONTRAST.
--- NOTE | 2017-07-12 17:00 | NUR ---
FINGERSTICK BLOOD GLUCOSE 240, 4 UNITS INSULIN GIVEN PER SLIDING SCALE ORDERS. Addendum: 07/12/17 at 1730 by Anat Saab RN FINGERSTICK BLOOD GLUCOSE 198, 2 UNITS INSULIN GIVEN PER SLIDING SCALE ORDERS.
--- NOTE | 2017-07-12 18:00 | NUR ---
MD ROUNDS DR MOORE HERE TO EVALUATE PT. MD TO ORDER FOR HEMODIALYSIS TOMORROW.
--- NOTE | 2017-07-12 19:02 | NUR ---
ENDORSED CARE TO KATTY ADAMS USING SBAR.
--- NOTE | 2017-07-12 19:30 | NUR ---
TRANSFER OF CARE Received report from AM shift RN. Pt in bed AAOX4. No acute distress at this time. Pt is scheduled for right foot debridement tonight at 1930. Heparin drip was discontinued at 1155. Pt able to respond spontaneously. Tolerating venti mask at 35% with O2 saturation of 94%. Bilateral lower extremity pitting edema noted. Wound on the right foot noted with dressing CDI. Sinus tachycardia on the monitor. Safety precaution observed, call light within reach. Will continue to monitor Pt.
--- NOTE | 2017-07-12 19:32 | NUR ---
OR TEAM OR team came in to transfer Pt to operating room. Pt's vital signs as follows TEMP 98.2, HR 111, O2 SAT 94%, BP 93/51. No acute distress at this time. Pt on 35% venti mask. Will transfer via bed with 2 RN's.
[2017-07-12] MEDS ORDERED: fentaNYL CITRATE/PF 100 MCG/2 ML AMP IVP PRN ×2 (20:15)
[2017-07-12] MEDS ORDERED: ONDANSETRON HCL 4 MG/2 ML VIAL IVP PRN (20:15)
[2017-07-12] MEDS ORDERED: PROPOFOL 200MG/ 20ML VIAL (DIPRIVAN) IV ONE (20:36)
[2017-07-12] MEDS ORDERED: LIDOCAINE 1% 10 MG/ML, 20 ML MDV INJ ONE (20:36)
[2017-07-12] MEDS ORDERED: BUPIVACAINE /PF 0.25% 30 ML VIAL INJ ONE (20:36)
[2017-07-12] MEDS ORDERED: NS 1000 ML BAG IV ONE (20:36)
[2017-07-12] MEDS ORDERED: fentaNYL CITRATE/PF 100 MCG/2 ML AMP IVP ONE (20:36)
[2017-07-12] MEDS ORDERED: MIDAZOLAM HCL 5 MG/ML VIAL (VERSED) IV ONE (20:36)
[2017-07-12] MEDS ORDERED: NS IRRIG SOLN 1000 ML IR ONE (20:36)
--- NOTE | 2017-07-12 21:45 | NUR ---
MD Rayo Spoke with Dr. Rayo covering for Dr. Young, orders received to transfer Pt to telemetry and continue heparin tomorrow. Will carry out orders.
--- NOTE | 2017-07-12 22:05 | NUR ---
TRANSFER TO TELEMETRY Pt on the monitoring and evaluation advisor, Zyvox running on the right PICC. Belongings sent with Pt. No acute distress at this time. VSS. O2 saturation of 95% with venti mask at 35%. Will transfer with 2RN's and give report to Shelia ADAMS.
--- NOTE | 2017-07-12 22:07 | NUR ---
TRANSFER OF CARE Received SBAR report from PPA TEACHER, Kirill. Patient is awake/alert/oriented, no acute distress noted. 103/67 108 22 97.1 98% (venturi mask 35% 10L) complains of 2/10 generalized pain. Completed physical assessment and reviewed order history. Debridement site (right foot) is clean/dry/intact, as well as optifoam dressings on left foot. Introduced myself, updated whiteboard, and discussed plan of care. Fall and respiratory precautions noted. Bed to lowest position, 2 bilateral upper side rails raised, call light within reach, bed alarm refused. Will continue to monitor patient.
--- NOTE | 2017-07-12 22:10 | NUR ---
BED ALARM -REFUSED Discussed and educated patient on purpose of bed alarm and advised with his condition/wound debridement/current medications he is considered a high fall risk. Patient says he will not get out of bed, still refusing bed alarm.
[2017-07-12] MEDS: HYDROcodone/ACETAMIN 5-325 MG TAB (NORCO/ VICODIN) PO PRN (23:02)
[2017-07-12] MEDS: METOCLOPRAMIDE HCL 10 MG/2 ML VIAL IVP PRN (23:02)
[2017-07-13] VITALS: BP_SYST 99
--- NOTE | 2017-07-13 00:05 | NUR ---
WOUND CARE Attempted to change loose optifoam dressing to left foot. Patient wants to rest and does not want this until morning. Will endorse to dayshift RN.
--- NOTE | 2017-07-13 00:44 | NUR ---
ROUNDS Patient is resting comfortably, eyes closed, no acute distress noted. Equal rise and fall of chest with respirations @ 22/min. PICC line to EH and dressing is clean/dry/intact. Bed to lowest position, 2 upper side rails raised bilaterally, call light within reach, bed alarm not activated per request. Will continue to monitor patient.
--- NOTE | 2017-07-13 02:30 | NUR ---
ROUNDS Patient is awake/alert/oriented, hunched over side table with pillows for comfort. Inquired if he is having trouble breathing and would like a breathing treatment, patient says it is just easier for him to breath sitting up rather than lying in bed. He does not need anything at this time. Bed to lowest position, 2 side rails bilaterally raised, call light within reach, bed alarm not activated per request. Will continue to monitor patient.
--- NOTE | 2017-07-13 04:45 | NUR ---
ROUNDS Patient is currently resting, eyes closed. Respirations are symmetric with equal rise and fall of chest with non-labored respirations @ 21/min. Venturi mask applied with 35% FI02. PICC line IV site is clean/dry/intact, locked and patent. Bed to lowest position, 2 side rails raised bilaterally, bed alarm not activated, call light within reach. Will continue to monitor patient.
[2017-07-13] MEDS: DILTIAZEM HCL 60 MG TABLET PO SCH ×3 (06:00→21:31)
[2017-07-13 06:44] LABS: BASOPHILS % (AUTO) 0.2 % (0.0-2.0); EOSINOPHILS # (AUTO) 0.7 K/uL (0.0-0.4); EOSINOPHILS % (AUTO) 5.6 % (0.0-4.0); LYMPHOCYTES # (AUTO) 1.6 K/uL (1.0-5.5); MEAN CORPUSCULAR HEMOGLOBIN 28 pg (27-31); MEAN CORPUSCULAR HGB CONC 34 % (32-36); MEAN CORPUSCULAR VOLUME 82 fL (79.0-98.0); MONOCYTES # (AUTO) 0.9 K/uL (0.0-1.0); MONOCYTES % (AUTO) 7.5 % (1.7-9.3); NEUTROPHILS # (AUTO) 8.6 K/uL (1.8-7.7); NEUTROPHILS % (AUTO) 72.7 % (40.0-70.0); PLATELET COUNT (AUTO) 277 K/uL (130-430); RED CELL DISTRIBUTION WIDTH 14.8 % (9.0-15.0); WHITE BLOOD COUNT (AUTO) 11.8 K/uL (4.8-10.8)
--- NOTE | 2017-07-13 06:45 | NUR ---
BLOOD GLUCOSE : 216 (4u) regular insulin given per physician ordered sliding scale. Educated patient on hypoglycemic signs/symptoms.
[2017-07-13] MEDS: INSULIN REGULAR, HUMAN 100 UNITS/ML, 10 ML VIAL (novoLIN R) SUBCUT PRN ×4 (06:48→20:31)
[2017-07-13 06:52] LABS: ALBUMIN 1.8 g/dL (3.4-4.8); CALCIUM 8.5 mg/dL (8.4-11.0); CREATININE 4.51 mg/dL (0.55-1.30); POTASSIUM 4.2 mmol/L (3.5-5.1); TOTAL BILIRUBIN 0.5 mg/dL (0.0-1.0)
--- NOTE | 2017-07-13 06:54 | NUR ---
CARDIZEM NON-ADMIN Patient's BP 93/92 HR 104
--- NOTE | 2017-07-13 06:55 | NUR ---
CLOSING NOTES All needs, interventions, expectations met by noc shift RN. Fall and respiratory precautions upheld throughout shift. Venturi mask 35% applied/flowing. PTT labs pending morning draw. Care of patient to be endorsed to dayshift RN.
--- NOTE | 2017-07-13 07:10 | NUR ---
OPENING NOTE RECEIVED REPORT FROM BRYAN LAU. PATIENT RESTING COMFORTABLY LAYING OVER BEDSIDE TABLE. PATIENT HAS NO NOTABLE SIGNS OF DISTRESS, AND NO COMPLAINTS OF PAIN AT THIS TIME. PATIENT SINUS TACH ON MONITOR AT 103 BPM. PATIENT IV SALINE LOCKED AT THIS TIME. PATIENT HAS RIGHT UPPER CHEST CRISTINA CATH FOR HD. PATIENT HAS HEMODIALYSIS TENTATIVE SCHEDULE FOR T//SAT. WILL CALL MD REGARDING TODAY'S HEMODIALYSIS ORDERS. PATIENTS BED IN LOWEST POSITION, CALL LIGHT WITHIN REACH, SIDE RAILS ARE UP FOR SAFETY MEASURES. PATIENT IN POSITION OF COMFORT. PATIENT ENCOURAGED TO CALL IF NEEDS ARISE, PATIENT ENCOURAGED TO STAY IN BED. WILL CONTINUE TO FOLLOW UP AND MONITOR PATIENT FOR CHANGES IN STATUS.
[2017-07-13 07:15] LABS: HEMATOCRIT 20.4 % (36-54)
--- NOTE | 2017-07-13 07:15 | NUR ---
CRITICAL LAB VALUE Hgb 7.[address] Plascencia to advise. Will endorse to ramona ADAMS.
--- NOTE | 2017-07-13 07:15 | NUR ---
NOTE CRITICAL VALUE CALLED TO PM SHIFT NURSE. SHE WILL CALL MD REGARDING ORDERS.
--- NOTE | 2017-07-13 07:35 | NUR ---
NOTE INFORMED BY OTOLARYNGOLOGY NURSE, PATIENT REFUSED BREAKFAST TRAY AT THIS TIME. PATIENT ENCOURAGED TO CALL IF HE GETS HUNGRY AND WE WILL HEAT IT UP FOR HIM.
--- NOTE | 2017-07-13 07:42 | NUR ---
Received call from Dr. Plascencia re: critical lab result. Advised of Critical lab Hgb 7.0 Hct 20.4. No new orders received at this time. Will advise ramona ADAMS.
[2017-07-13] MEDS: IPRATROPIUM/ALBUTEROL SULFATE 3 ML AMPUL.NEB INH SCH ×5 (07:50→23:15)
--- NOTE | 2017-07-13 08:00 | NUR ---
NOTE PAGED DR. MOORE REGARDING HEMODIALYSIS ORDERS. WILL AWAIT PHONE CALL.
--- NOTE | 2017-07-13 08:04 | NUR ---
OSCAR CALL BACK SPOKE WITH HIM REGARDING HEMODIALYSIS ORDERS. PATIENT OKAY TO HAVE HEMODIALYSIS TODAY, SAME ORDERS 07/11/17. WILL GIVE ORDER TO MUSICIAN INSTRUMENTAL.
[2017-07-13 08:11] VITALS: BP_SYST 101
--- NOTE | 2017-07-13 08:24 | NUR ---
NOTE PAGED DR. PINZON REGARDING ZYVOX ORDER AND MAXIPIME ORDERS. AWAITING RETURN CALL.
[2017-07-13] MEDS: FUROSEMIDE 40 MG/4 ML VIAL IVP SCH ×2 (09:00→20:28)
[2017-07-13] MEDS: CILOSTAZOL 50 MG TABLET (PLETAL) PO SCH ×2 (09:12→20:24)
[2017-07-13] MEDS: metroNIDAZOLE 250 mg/NS 50 ML IV SCH ×3 (09:12→23:56)
[2017-07-13] MEDS: BALSAM PERU/CASTOR OIL 60 GM OINT...G. TP SCH (09:12)
--- NOTE | 2017-07-13 09:15 | NUR ---
NOTE ENDORSED CARE TO MARBLE CUTTER NURSE, BRYAN LAU. PATIENT ENCOURAGED TO REST AND CALL IF NEEDS ARISE. PATIENT VITAL SIGNS STABLE. PATIENT NEEDS ARE MET. ENDORSED TO NURSE WOUND CARE.
--- NOTE | 2017-07-13 10:40 | NUR ---
NOTE CONFIRMED WITH DR. MOORE AND DR. ZENDEJAS REGARDING ORDERS TO DISCONTINUE HEPARIN OSCAR JC DISCUSSED WITH AASHISH REGARDING BEGINNING OTHER ANTICOAGULANTS. PATIENT PTT 23.9. WILL FOLLOW UP REGARDING ORDERS.
[2017-07-13 12:00] VITALS: BP_SYST 91
--- NOTE | 2017-07-13 12:25 | NUR ---
NOTE OSCAR AND DYAN ARE AT BEDSIDE TO EVALUATE PATIENT STATUS. ORDERS TO FOLLOW FOR U/S OF IVC SIZE. WILL FOLLOW UP REGARDING RESULTS.
--- NOTE | 2017-07-13 13:00 | NUR ---
DIALYSIS DIALYSIS NURSE OLMSTEAD AT BEDSIDE FOR DIALYSIS. PROVIDED ORDERS, SALINE, AND PATIENT TO HAVE 2 U PRBCs GIVEN DURING DIALYSIS, AWARE, AND BLOOD IS READY IN LAB.
--- NOTE | 2017-07-13 15:20 | NUR ---
NOTE PATIENT RECEIVED BOTH UNITS OF PRBC. PATIENT COMPLETING DIALYSIS AT THIS TIME. PATIENT NEEDS ARE MET AT THIS TIME. PATIENT TOLERATING PROCEDURE. PATIENT SCHEDULED FOR CT CHEST AFTER COMPLETION OF HD. WILL INFORM RADIOLOGY. PATIENT SLEEPING. WILL CONTINUE TO FOLLOW UP AND MONITOR.
[2017-07-13 15:27] VITALS: BP_SYST 101
[2017-07-13 16:00] VITALS: BP_SYST 108
--- NOTE | 2017-07-13 16:15 | NUR ---
NOTE DIALYSIS COMPLETED BY BRYAN OLMSTEAD. PATIENT HAD 3.5 L REMOVED. PATIENT RECEIVED 2 U PRBC'S. PATIENT VITAL SIGNS STABLE AT THIS TIME. PATIENT ENCOURAGED TO REST. WILL CONTINUE TO FOLLOW UP AND MONITOR.
--- NOTE | 2017-07-13 16:50 | NUR ---
NOTE FLAGYL GIVEN ORDERED. PATIENT HAS SON AT BEDSIDE FOR COMFORT. PATIENT FSBS TAKEN 177, COVERED WITH INSULIN ORDERED. PATIENT ENCOURAGED TO CALL IF NEEDS ARISE. WILL CONTINUE TO FOLLOW UP AND MONITOR PATIENT FOR CHANGES IN STATUS.
--- NOTE | 2017-07-13 17:45 | NUR ---
NOTE PATIENT WENT TO CT SCAN BY WHEELCHAIR, PATIENT TOLERATED WELL. PATIENT RESUMED ON IV ABX. PATIENT ENCOURAGED TO CALL IF NEEDS ARISE. WILL CONTINUE TO FOLLOW UP AND MONITOR.
[2017-07-13 19:20] VITALS: BP_SYST 103
--- NOTE | 2017-07-13 19:20 | NUR ---
NOTE PATIENT REPORT ENDORSED TO BRYAN LAU.
--- NOTE | 2017-07-13 19:20 | NUR ---
OPENING NOTE Received SBAR report from RNJossy. Patient is awake/alert/oriented, no acute distress noted. 103/63 118 22 98.1 95% (venturi mask 35% 10L) complains of 1/10 generalized pain. IV site noted to HE PICC line dble lumen, and site is clean/dry/intact. Verified patency with blood return/flush. ABX currently running. Urinal bedside and empty. Introduced myself, updated whiteboard, and discussed plan of care. Fall and respiratory precautions noted. Bed to lowest position, 2 bilateral upper side rails raised, call light within reach, bed alarm refused. Educated patient on risks and benefits for bed alarm as he is a high fall risk, still refused. Will continue to monitor patient.
[2017-07-13] MEDS: CEFEPIME 1 GM in D5W 50 ML IV SCH (19:42)
--- NOTE | 2017-07-13 20:21 | NUR ---
BLOOD GLUCOSE : 229 (4u) regular insulin given per physician ordered sliding scale. Educated patient on hypoglycemic signs/symptoms.
[2017-07-13] MEDS: LINEZOLID 300 ML IV SCH (20:22)
[2017-07-13] MEDS: METOCLOPRAMIDE HCL 10 MG/2 ML VIAL IVP PRN (20:23)
[2017-07-13] MEDS: HYDROcodone/ACETAMIN 5-325 MG TAB (NORCO/ VICODIN) PO PRN (20:25)
--- NOTE | 2017-07-13 21:32 | NUR ---
PAIN MEDICATION Patient complains of 4/10 generalized aching pain. Administered [place] 5mg/325mg as ordered by physician for moderate pain. Will follow-up with patient to ensure effective pain management.
--- NOTE | 2017-07-13 21:33 | NUR ---
LASIX : NON-ADMIN : BP 98/55
--- NOTE | 2017-07-13 21:52 | NUR ---
ROUNDS Patient is currently resting, eyes closed. Respirations are symmetric with equal rise and fall of chest with non-labored respirations @ 22/min. Venturi mask applied with 35% FI02, saturating 97-98%. PICC line to EH site is clean/dry/intact, currently infusing scheduled ABX. Bed to lowest position, 2 side rails raised bilaterally, bed alarm not activated, call light within reach. Will continue to monitor patient.
--- NOTE | 2017-07-13 23:00 | NUR ---
ROUNDS Patient is resting comfortably, eyes closed, no acute distress noted. Equal rise and fall of chest with respirations @ 20/min. PICC line to EH and dressing is clean/dry/intact, saline locked. Bed to lowest position, 2 upper side rails raised bilaterally, call light within reach, bed alarm not activated per request. Will continue to monitor patient.
--- NOTE | 2017-07-13 23:13 | NUR ---
Community Nutrition Educator currently in with patient administering breathing treatment.
[2017-07-14] VITALS (7 sets, daily range): BP systolic 102–111
--- NOTE | 2017-07-14 01:41 | NUR ---
ROUNDS Patient is awake/alert/oriented, sitting up in bed watching television. He does not need anything at this time. Venturi mask applied and flowing @ 35%. Bed to lowest position, 2 upper side rails raised bilaterally, call light within reach, bed alarm not activated. Will continue to monitor patient.
[2017-07-14] MEDS: METOCLOPRAMIDE HCL 10 MG/2 ML VIAL IVP PRN ×2 (02:41→19:35)
[2017-07-14] MEDS: HYDROcodone/ACETAMIN 5-325 MG TAB (NORCO/ VICODIN) PO PRN ×2 (02:42→19:34)
--- NOTE | 2017-07-14 02:42 | NUR ---
NORCO - NOT SCANNED Barcode to [place] not scanning, manual barcode entry established.
[2017-07-14] MEDS: IPRATROPIUM/ALBUTEROL SULFATE 3 ML AMPUL.NEB INH SCH ×6 (03:29→23:59)
--- NOTE | 2017-07-14 03:29 | NUR ---
Marble Mason currently in with patient administering breathing treatment.
--- NOTE | 2017-07-14 04:33 | NUR ---
ROUNDS Patient is resting comfortably, eyes closed with venturi mask applied and flowing @ 35%. He is easily arousable to light verbal stimulation. No labored breathing, respirations @ 20/min. Bed to lowest position, 2 upper side rails raised bilaterally, call light within reach. Will continue to monitor patient.
--- NOTE | 2017-07-14 06:15 | NUR ---
BLOOD GLUCOSE : 215 (4u) regular insulin given per physician ordered sliding scale. Educated patient on hypoglycemic signs/symptoms.
[2017-07-14] MEDS: INSULIN REGULAR, HUMAN 100 UNITS/ML, 10 ML VIAL (novoLIN R) SUBCUT PRN ×4 (06:24→21:02)
[2017-07-14] MEDS: DILTIAZEM HCL 60 MG TABLET PO SCH ×3 (06:27→21:06)
--- NOTE | 2017-07-14 06:54 | NUR ---
CLOSING NOTES All needs, interventions, expectations met by noc shift RN. Fall and respiratory precautions upheld throughout shift. Venturi mask 35% applied/flowing. Care of patient to be endorsed to dayshift RN.
[2017-07-14 07:32] LABS: BASOPHILS % (AUTO) 0.2 % (0.0-2.0); EOSINOPHILS # (AUTO) 0.4 K/uL (0.0-0.4); LYMPHOCYTES # (AUTO) 1.5 K/uL (1.0-5.5); LYMPHOCYTES % (AUTO) 15.6 % (20.5-51.5); MEAN CORPUSCULAR HEMOGLOBIN 29 pg (27-31); MEAN CORPUSCULAR HGB CONC 34 % (32-36); MEAN CORPUSCULAR VOLUME 83 fL (79.0-98.0); MONOCYTES % (AUTO) 11.1 % (1.7-9.3); NEUTROPHILS # (AUTO) 6.4 K/uL (1.8-7.7); NEUTROPHILS % (AUTO) 69.1 % (40.0-70.0); PLATELET COUNT (AUTO) 254 K/uL (130-430); RED BLOOD CELL COUNT(AUTO) 2.89 MIL/uL (4.2-6.2); RED CELL DISTRIBUTION WIDTH 15.4 % (9.0-15.0); WHITE BLOOD COUNT (AUTO) 9.3 K/uL (4.8-10.8)
[2017-07-14 07:37] LABS: CALCIUM 8.4 mg/dL (8.4-11.0); CREATININE 3.79 mg/dL (0.55-1.30); POTASSIUM 3.4 mmol/L (3.5-5.1); TOTAL BILIRUBIN 0.4 mg/dL (0.0-1.0)
[2017-07-14 07:45] LABS: HEMOGLOBIN 8.3 g/dL (14.0-18.0)
--- NOTE | 2017-07-14 07:45 | NUR ---
AM ROUNDS: PATIENT AWAKE SITTING ON THE BED,VENTI MASK ON WITH FIO2=35%,GOOD SATURATION. WITH RIGHT UPPER ARM PICCLINE X 2 PORTS,CLEAN AND DRY. RIGHT UPPER CHEST CRISTINA ,DRESSING CLEAN AND DRY. RIGHT FOOT WITH EARL WRAPPED DRESSING,OLD BLOOD STAINED,NO ACTIVE BLEEDING NOTED. LEFT FOOT LATERAL SIDE,OLD SCAB,COVERED WITH OPTIFOAM GENTLE. BED LOCKED AT LOWEST POSITION.CALL LIGHT WITH IN REACH. BED ALARM OFF,PATIENT REFUSED TO BE ON FOR SAFETY ISSUE.CONTINUE TO MONITOR.
[2017-07-14] MEDS: metroNIDAZOLE 250 mg/NS 50 ML IV SCH ×3 (08:55→23:37)
[2017-07-14] MEDS: CILOSTAZOL 50 MG TABLET (PLETAL) PO SCH ×2 (08:55→21:06)
[2017-07-14] MEDS: FUROSEMIDE 40 MG/4 ML VIAL IVP SCH ×2 (08:55→21:04)
[2017-07-14] MEDS: BALSAM PERU/CASTOR OIL 60 GM OINT...G. TP SCH (09:05)
[2017-07-14] MEDS: LINEZOLID 300 ML IV SCH ×2 (09:09→21:07)
--- NOTE | 2017-07-14 11:29 | NUR ---
blood sugar: blood clvnh=633kw/dl,regular insulin 8 units subcutaneous given per sliding scale.
--- NOTE | 2017-07-14 13:05 | NUR ---
rn rounds: sitting on the edge of the bed,still on venti mask,tolerated fio2=35%.good saturation. call light with in reach. bed locked at lowest position.bed alarm off,patient refused to be on.
--- NOTE | 2017-07-14 17:30 | NUR ---
Blood Sugar: Blood Sugar =273mg/dl,regular insulin 6 units subcutaneous given per sliding scale.
[2017-07-14] MEDS: CEFEPIME 1 GM in D5W 50 ML IV SCH (17:35)
--- NOTE | 2017-07-14 18:29 | NUR ---
CLOSING NOTES: PATIENT ATE DINNER SLOWLY.WITH SAME VENTI MASK,FIO2=35%,GOOD SATURATION.BREATHING TREATMENT RENDERED BY RT. RIGHT UPPER ARM PICCLINE CLEAN AND DRY.RIGHT FOOT DRESSING ,OLD BLOOD STAINED . LEFT FOOT OPTI FOAM GENTLE. CALL LIGHT WITH IN REACH. BED LOCKED AT LOWEST POSITION. CONTINUE TO MONITOR.
--- NOTE | 2017-07-14 19:30 | NUR ---
OPENING NOTE Received SBAR report from RNKatie Patient is awake/alert/oriented, no acute distress noted. 111/64 107 21 97.1 94% (venturi mask 35% 10L) complains of 4/10 generalized pain. IV site noted to EH PICC line dble lumen, and site is clean/dry/intact. Verified patency with blood return/flush, saline locked. Urinal bedside, with 50ml cathie urine. Introduced myself, updated whiteboard, and discussed plan of care. Fall and respiratory precautions noted. Bed to lowest position, 2 bilateral upper side rails raised, call light within reach, bed alarm refused. Educated patient on risks and benefits for bed alarm as he is a high fall risk, still refused. Will continue to monitor patient.
--- NOTE | 2017-07-14 20:50 | NUR ---
2nd paged for Dr. Plascencia for oders spoke with Jolene
--- NOTE | 2017-07-14 20:57 | NUR ---
BLOOD GLUCOSE : 227 (4u) regular insulin given per physician ordered sliding scale. Educated patient on hypoglycemic signs/symptoms.
--- NOTE | 2017-07-14 21:45 | NUR ---
ROUNDS Patient is awake/alert/oriented x 4, watching television. No acute distress is noted. Respirations are equal/non-labored @ 21/min. Venturi mask is applied and flowing @ 35%. Patient does not need anything at this time. Will continue to monitor patient.
--- NOTE | 2017-07-14 23:20 | NUR ---
WOUND CARE Surgeon has not done first dressing change in foot. Will endorse to dayshift as debridement was done 07/12. Basic wound care done to left foot. left 5th toe and left big toe plantar no odor, no drainage Normal saline cleanse, patted dry, applied optifoam.
--- NOTE | 2017-07-14 23:59 | NUR ---
Warp Dyeing Vat Tender currently in with patient administering breathing treatment.
--- NOTE | 2017-07-15 00:36 | NUR ---
ROUNDS Patient is awake/alert/oriented x 4. Non-labored respirations; 20/min with symmetric rise and fall of chest. Both legs are elevated on pillow to promote fluid return. PICC line site is clean/dry/intact with no signs of infiltration. He says he does not need anything at this time. Will continue to monitor patient. -Bed alarm refused.
[2017-07-15 00:43] VITALS: BP_SYST 102
[2017-07-15] MEDS: METOCLOPRAMIDE HCL 10 MG/2 ML VIAL IVP PRN ×3 (02:17→20:27)
[2017-07-15] MEDS: HYDROcodone/ACETAMIN 5-325 MG TAB (NORCO/ VICODIN) PO PRN ×2 (02:17→20:27)
--- NOTE | 2017-07-15 04:06 | NUR ---
ROUNDS Patient is resting comfortably, eyes closed, but easily arouses to light verbal stimulation. Venturi mask is applied and flowing @ 35%. No sign of redness on pressure points from mask. Right upper picc line saline locked, with no signs of redness. Dressing is clean/dry/intact. Bed to lowest position, call light within reach, 2 upper side rails raised bilaterally, bed alarm refused. Will continue to monitor patient.
[2017-07-15] MEDS: INSULIN REGULAR, HUMAN 100 UNITS/ML, 10 ML VIAL (novoLIN R) SUBCUT PRN ×4 (05:55→21:42)
[2017-07-15] MEDS: DILTIAZEM HCL 60 MG TABLET PO SCH ×3 (05:58→21:37)
--- NOTE | 2017-07-15 06:00 | NUR ---
BLOOD GLUCOSE : 221 (4u) regular insulin given per physician ordered sliding scale. Educated patient on hypoglycemic signs/symptoms.
--- NOTE | 2017-07-15 06:01 | NUR ---
LAMAR NON-ADMIN Patient's BP 94/56 HR 102
--- NOTE | 2017-07-15 06:02 | NUR ---
ROUNDS Patient is awake/alert/oriented, sitting up at bedside. Venturi mask not applied, educated patient on importance of keeping O2 applied/flowing. He verbalizes understanding and reapplies venturi mask, fi02: 35%. After administering am medications patient would like to lay back in bed. Elevated legs to promote venous return. Bed to lowest position, 2 side rails raised bilaterally, call light within reach, bed alarm not activated. Will continue to monitor patient.
[2017-07-15] MEDS: IPRATROPIUM/ALBUTEROL SULFATE 3 ML AMPUL.NEB INH SCH ×5 (07:13→23:00)
--- NOTE | 2017-07-15 07:20 | NUR ---
CLOSING NOTE Gave bedside report to dayshift RN Clarice. Patient is currently awake/alert/oriented, watching tv. No acute distress noted. He is currently receiving a breathing treatment. Fall and respiratory precautions upheld throughout shift. Introduced dayshift RN. He does not need anything else at this time All needs, expectations, interventions met by nightshift RN. Transfer of care successful.
--- NOTE | 2017-07-15 07:42 | NUR ---
OPENING NOTE: MORNING REPORT WAS TAKEN FROM ACCOUNTS RECEIVABLE BOOKKEEPER NURSE. PATIENT WAS IN BED GETTING BREATHING TREATMENT. VITALS WERE TAKEN AND MORNING ASSESSMENT WAS DONE. PATIENT IS ALERT AND ORIENTED. PATIENT IS NOT COMPLAINING OF SHORTNESS OF BREATH. PATIENT IS ON VENTI MASK AT 35%. PATIENT IS NOT COMPLAINING OF PAIN. PATIENT WAS ITCHY IN UPPER ARMS. WILL ASK FOR SOMETHING FOR THAT. ARMS ARE SWOLLEN. LOWER EXTREMITIES ARE SWOLLEN. NOT ABLE TO GET PEDUAL PULSE BECAUSE OF THE EDEMA. CAP REFILL IS LESS THAN 3 SECONDS. PATIENT NOT ABLE TO FEEL TOES BUT PATIENT SAID IT IS BECAUSE OF HIS DIABETIC NEUROPATHY. PATIENT ABLE TO FEEL HEELS AND ABOVE THOUGH. PATIENT HAS DRESSINGS ON FEET THAT ARE CURRENTLY DRY AND INTACT. EDUCATED PATIENT ON IMPORTANCE OF BED ALARM BUT PATIENT REFUSED AND SAID HE DOESNT WANT IT ON. BED IS IN LOWEST POSITION WITH CALL LIGHT IN REACH. WILL CONTINUE TO MONITOR. Addendum: 07/15/17 at 1211 by Clarice Castillo RN PATIENT HAS PICC LINE IN UPPER RIGHT ARM. PICC IS PATENT AND BLOOD RETURN WAS PRESENT. PICC IS SALINE LOCKED.
[2017-07-15] MEDS: metroNIDAZOLE 250 mg/NS 50 ML IV SCH ×3 (07:51→23:35)
[2017-07-15 08:04] VITALS: BP_SYST 102
--- NOTE | 2017-07-15 09:05 | NUR ---
NOTE: GAVE PATIENT REST OF MEDICATIONS. DR. ZENDEJAS CAME IN TO SEE PATIENT. TOLD HIM THAT PATIENT WAS ITCHY IN ARMS AND HE SAID HE WOULD GET HIM SOMETHING FOR THAT. PATIENT IN BED WATCHING TV WITH NO SIGNS OF DISTRESS. WILL CONTINUE TO MONITOR.
[2017-07-15] MEDS: FUROSEMIDE 40 MG/4 ML VIAL IVP SCH ×2 (09:06→20:32)
[2017-07-15] MEDS: CILOSTAZOL 50 MG TABLET (PLETAL) PO SCH ×2 (09:07→20:31)
[2017-07-15] MEDS: LINEZOLID 300 ML IV SCH ×2 (09:07→20:32)
--- NOTE | 2017-07-15 09:40 | NUR ---
MD/HEPARIN: ASKED DR. ZENDEJAS IF WE COULD USE THE PICC LINE FOR BLOOD DRAW. HE SAID IT WAS OKAY. ALSO ASKED HIM IF HE COULD TAKE THE HEPARIN DRIP OFF THE [facility] PER SCHOOL BUS DRIVER/MECHANIC NURSE BECAUSE HE HASNT BEEN ON IT SINCE THE . DR. ALY SAID HE WAS SUPPOSE TO STILL BE ON IT. TALKED TO CHARGE NURSE AND LOOKED AT NOTES. NOTE ON AT [address] ZENDEJAS AND RICKEY WERE GOING TO START PATIENT ON OTHER ANTICOAGULANT BUT STILL THERE WAS NO ORDER FOR IT. PAGED DR. MOORE TO CLARIFY.
--- NOTE | 2017-07-15 09:50 | NUR ---
PAGED PAGED KAILEY GUTIERREZ AT [phone] SPOKE WITH ABI.
--- NOTE | 2017-07-15 10:00 | NUR ---
MD ROUNDS SPOKE WITH DR ZENDEJAS IN REGARDS TO THE ORDER FOR HEPARIN, PER MD PT HAS A DVT AND NEEDS TO BE HEPARIN PER ORDER. SPOKE WITH MST DIRECTOR AND MADE HER AWARE, LABS ORDERED TO START HEPARIN DRIP, AWAITING RESULTS.
--- NOTE | 2017-07-15 11:00 | NUR ---
PAGED DR ZENDEJAS PAGED TO NOTIFY HIM THAT DR MOORE GAVE AN ORDER TO PLACE PT ON ELIQUIS BID AND D/C HEPARIN.
[2017-07-15 11:04] LABS: INR 1.1 (0.80-1.20); PROTHROMBIN TIME 11.2 SECS (9.5-12.5)
--- NOTE | 2017-07-15 12:00 | NUR ---
NOTE: DR. CADET SAW PATIENT AND WANTED TO SEE PATIENT'S O2 SAT ON ROOM AIR. PATIENT WAS OFF MASK FOR 15 MIN AND O2 SAT WAS CHECKED. PATIENT'S O2 SAT ON ROOM AIR WAS 96-97%. PATIENT WAS NOT COMPLAINING OF SHORTNESS OF BREATH OR CHEST PAIN.
[2017-07-15 12:30] VITALS: BP_SYST 101
--- NOTE | 2017-07-15 14:10 | NUR ---
NOTE: DR. MONSIVAIS HAD TOLD PATIENT HE WAS OKAY TO GO HOME. SO PATIENT KEEPS ASKING WHEN HE IS GOING TO BE DISCHARGED. LET PATIENT KNOW WE HAVE TO GET THE OKAY FROM DR. ZENDEJAS AND OTHER DOCTORS. PATIENT WANTED ME TO PAGE DOCTORS SO HE CAN LEAVE. DR. MONSIVAIS'S NOTE SAID OKAY TO DISCHARGE IF OKAY WITH PULMO AND NEPHRO DOCTOR. PAGED DR ZENDEJAS AND EDGARDO. Addendum: 07/15/17 at 2123 by Clarice Castillo RN NEVER SPOKE TO DR. ZENDEJAS WHEN HE WAS PAGED EARLIER REGARDING THE DC OF HEPARIN AND CONTINUATION OF ELIQUIS BID. CHARGE NURSE WAS GOING TO TELL DR. ZENDEJAS.
--- NOTE | 2017-07-15 15:24 | NUR ---
: DR. REYNOSO CALLED BACK AND SAID THAT PATIENT HAS TO BE SET UP FOR DIALYSIS FOR WHEN HE IS DISCHARGED.
[2017-07-15] MEDS ORDERED: APIXABAN 2.5 MG TABLET PO ONE (15:45)
[2017-07-15] MEDS: CEFEPIME 1 GM in D5W 50 ML IV SCH (17:05)
[2017-07-15] MEDS: BALSAM PERU/CASTOR OIL 60 GM OINT...G. TP SCH (17:06)
--- NOTE | 2017-07-15 17:30 | NUR ---
NOTE: PATIENT WAS VERY AGITATED BECAUSE HE WANTED TO GO HOME. TOLD PATIENT DR. CADET ORDERED CHEST X RAY FOR TOMORROW AND PATIENT GOT MAD. FINISHED UP FIRST ANTIBIOTIC. PICC LINE DRESSING WAS DUE TODAY. CHANGED PICC LINE USING STERILE TECHNIQUE. ARM CIRCUMFERENCE WAS 32.5 CM. GAVE REST OF ANTIBIOTICS. DID WOUND CARE FOR PATIENTS DRESSING ON THE LEFT LOWER FOOT. AFTER EVERYTHING PATIENT HAD CALMED DOWN A LITTLE AND DIDNT TAKE IT OUT ON ME BECAUSE HE UNDERSTOOD IT WASNT MY FAULT. WILL CONTINUE TO MONITOR.
[2017-07-15 18:10] VITALS: BP_SYST 102
--- NOTE | 2017-07-15 18:10 | NUR ---
: DR. ZENDEJAS CALLED BACK AND TALKED TO CHARGE NURSE. CHARGE NURSE SAID THAT PATIENT IS NOT READY TO GO HOME YET.
--- NOTE | 2017-07-15 19:20 | NUR ---
CLOSING NOTE: GAVE REPORT TO NIGHT NURSE. PATIENT IS ALERT AND ORIENTED, SITTING IN CHAIR AT SIDE OF BED. PATIENT HAS BEEN ON ROOM AIR SINCE NOON WHEN I FIRST TOOK HIS O2 SAT ON ROOM AIR. PATIENT IS NOT COMPLAINING OF SHORTNESS OF BREATH OR LIGHTHEADEDNESS. PATIENT ASKED FOR BREATHING TREATMENT THOUGHT. WILL ASK RESPIRATORY. PATIENT IS SALINE LOCKED. PATIENT WANTED HIS PAIN MED AND REGLAN BUT NIGHT NURSE WAS GOING TO GIVE IT TO HIM. EDUCATED PATIENT ON IMPORTANCE OF BED ALARM BUT REFUSED IT THROUGH OUT SHIFT. CALL LIGHT IS IN REACH.
[2017-07-15 20:30] VITALS: BP_SYST 110
[2017-07-15] MEDS: APIXABAN 2.5 MG TABLET PO SCH (20:31)
--- NOTE | 2017-07-15 20:35 | NUR ---
OPENING NOTE RECEIVED ENDORSEMENT REPORT FROM DAY SHIFT NURSE. PT IS AOX4, PT IS RESTING IN CHAIR. CHEST RISE EVEN AND UNLABORED. NO SOB NOTED. NO DISTRESS NOTED. VITAL SIGNS WNL. PT REPORTED 6/10 LEG PAIN AT THIS TIME. NORCO ADMINISTERED, PT TOLERATED WELL, WILL MONITOR MEDICATION EFFECTIVENESS. ALL SCHEDULED MEDICATIONS ADMINISTERED ORDERED. BS 187, 2 UNITS OF NOVOLIN R ADMINISTERED TO LEFT ARM. WILL CONTINUE TO MONITOR PT. PICC LINE LOCATED ON EH, IS DRY AND INTACT. IVF INFUSING WELL. PT REFUSES TO HAVE BED ALARM, EDUCATED PT ON THE BENEFITS OF USINF THE BED ALARM FOR SAFETY, PT CONTINUES TO REFUSE BED ALARM, WILL MONITOR PT. SAFETY MEASURES IN PLACE, CALL LIGHT WITHIN REACH, BED WHEELS LOCKED, BED IN LOWEST POSITION, BED RAILS UP X2, BEDSIDE TABLE WITHIN REACH. NO FURTHER NEEDS AT THIS TIME. WILL CONTINUE TO MONITOR PT FOR SAFETY.
--- NOTE | 2017-07-15 21:23 | NUR ---
DIALYSIS NURSE ISHAN CALLED DIALYSIS NURSE ISHAN CALLED IN REGARDS TO DIALYSIS SCHEDULED FOR TOMORROW 07/16, NO ORDER AT THIS TIME. NURSE OLMSTEAD STATED SHE WOULD CALL AND CALL BACK. WILL BE WAITING FOR RETURN CALL.
--- NOTE | 2017-07-15 21:39 | NUR ---
RN ROUNDS SCHEDULED MEDICATIONS ADMINISTERED AT THIS TIME. BS 187, 2 UNTIS OF NOVOLIN R ADMINISTERED. IVF INFSUING WELL. NO FURTHER NEEDS AT THIS TIME.
--- NOTE | 2017-07-15 23:30 | NUR ---
RN ROUNDS PT RESTING IN BED WITH EYES OPEN. CHEST RISE EVEN AND UNLABORED. NO SOB NOTED. NO DISTRESS NOTED. FLAGYL INFUSING WELL. NO FURTHER NEEDS. SAFETY MEASURES IN PLACE.
--- NOTE | 2017-07-16 00:44 | NUR ---
ENDORSEMENT ENDORSED PT TO DONNA ADAMS. PT RESTING IN BED WITH EYES CLOSED. CHEST RISE EVEN AND UNLABORED. NO SOB NOTED. NO DISTRESS NOTED. ALL SCHEDULED MEDICATIONS UP UNTIL NOW ADMINISTERED. PT TOLERATED MEDICATIONS WELL. NO FURTHER NEEDS AT THIS TIME. SAFETY MEASURES IN PLACE, PT REFUSES TO HAVE BE ALARM ON. WILL CONTINUE TO MONITOR.
--- NOTE | 2017-07-16 00:45 | NUR ---
RN Rounds Pt is fully awake, alert and oriented x4. Speech is clear and pt is able to make his needs known. Pt is sitting on the side of his bed with his feet on the floor. Pt declines getting back in bed and also declines bed alarm. Right foot dressing was reinforced with tape. Left foot dressings are dry and intact. EH PICC double lumen noted with the dressing dry and intact. Right chest Hemodialysis Jerry cath noted with the dressing dry and intact. No c/o pain or discomfort at this time. Skin is warm and dry to touch. No signs or symptoms of hypoglycemia or hyperglycemia noted. Fall and safety precautions are in place. Pt was instructed to call for assistance as needed and pt verbalized understanding. Call light is with pt. Will continue to monitor pt.
[2017-07-16 01:11] VITALS: BP_SYST 102
[2017-07-16] MEDS: HYDROcodone/ACETAMIN 5-325 MG TAB (NORCO/ VICODIN) PO PRN ×2 (02:42→21:15)
[2017-07-16] MEDS: METOCLOPRAMIDE HCL 10 MG/2 ML VIAL IVP PRN ×2 (02:43→21:16)
--- NOTE | 2017-07-16 02:43 | NUR ---
Pain/Nausea [place] 5/325mg 1 tablet was given po for c/o abdominal pain with relief. Reglan 5mg was given IV for c/o nausea with good effect. No emesis noted. will continue to monitor pt.
[2017-07-16] MEDS: IPRATROPIUM/ALBUTEROL SULFATE 3 ML AMPUL.NEB INH SCH ×6 (03:00→23:28)
--- NOTE | 2017-07-16 04:30 | NUR ---
Rounds Pt is sleeping comfortably in bed. No respiratory distress noted. Fall and safety precautions are in place.
[2017-07-16] MEDS: DILTIAZEM HCL 60 MG TABLET PO SCH ×3 (05:52→21:13)
[2017-07-16] MEDS: INSULIN REGULAR, HUMAN 100 UNITS/ML, 10 ML VIAL (novoLIN R) SUBCUT PRN ×4 (06:23→21:19)
--- NOTE | 2017-07-16 06:57 | NUR ---
Closing Note Pt is sitting quietly on the side of his bed with his feet on the floor. Pt denies pain or discomfort at this time. All pt's needs were attended to. No fall or injury noted this shift. Accucheck 152 this AM and 2 units Regular Insulin given SQ. Skin remains warm and dry to touch. Will endorse to day shift nurse.
[2017-07-16 07:31] LABS: BASOPHILS % (AUTO) 0.4 % (0.0-2.0); EOSINOPHILS # (AUTO) 0.5 K/uL (0.0-0.4); EOSINOPHILS % (AUTO) 7.4 % (0.0-4.0); HEMATOCRIT 23.1 % (36-54); HEMOGLOBIN 7.9 g/dL (14.0-18.0); LYMPHOCYTES # (AUTO) 1.1 K/uL (1.0-5.5); LYMPHOCYTES % (AUTO) 15.4 % (20.5-51.5); MEAN CORPUSCULAR HEMOGLOBIN 28 pg (27-31); MEAN CORPUSCULAR HGB CONC 34 % (32-36); MEAN CORPUSCULAR VOLUME 83 fL (79.0-98.0); MONOCYTES # (AUTO) 0.8 K/uL (0.0-1.0); MONOCYTES % (AUTO) 10.9 % (1.7-9.3); NEUTROPHILS # (AUTO) 4.8 K/uL (1.8-7.7); NEUTROPHILS % (AUTO) 65.9 % (40.0-70.0); PLATELET COUNT (AUTO) 274 K/uL (130-430); RED BLOOD CELL COUNT(AUTO) 2.78 MIL/uL (4.2-6.2); RED CELL DISTRIBUTION WIDTH 15.4 % (9.0-15.0); WHITE BLOOD COUNT (AUTO) 7.2 K/uL (4.8-10.8)
[2017-07-16 07:35] LABS: CALCIUM 8.3 mg/dL (8.4-11.0); CREATININE 4.61 mg/dL (0.55-1.30); POTASSIUM 3.7 mmol/L (3.5-5.1)
[2017-07-16 07:52] VITALS: BP_SYST 93
--- NOTE | 2017-07-16 08:00 | NUR ---
Note Pt sitting on side of bed with head resting on bedside table. Pt states he prefers to be in this position. Right upper arm PICC intact and patent at this time. Pt's right foot dressing CDI at this time. No SOB/resp distress or pain/discomfort noted at this time. Tele unit intact and attached at this time. Pt refuses to have the bed alarm on as he states he moves around in the bed frequently - to sit on the side or lie back down and the bed alarm sounds. Bed alarm left off at this time. Call light within reach.
[2017-07-16] MEDS: metroNIDAZOLE 250 mg/NS 50 ML IV SCH (08:40)
[2017-07-16] MEDS: FUROSEMIDE 40 MG/4 ML VIAL IVP SCH ×2 (08:40→21:13)
[2017-07-16] MEDS: APIXABAN 2.5 MG TABLET PO SCH ×2 (08:41→21:14)
[2017-07-16] MEDS: CILOSTAZOL 50 MG TABLET (PLETAL) PO SCH ×2 (08:41→21:14)
[2017-07-16] MEDS: LINEZOLID 300 ML IV SCH ×2 (08:42→21:12)
--- NOTE | 2017-07-16 10:00 | NUR ---
Note Dr Young and Dr Velez came to see pt. Questions/concerns were answered and plan of care was discussed. Order for physical therapy and ABG's on room air were written and carried out. Pt now resting in bed. Call light within reach.
[2017-07-16] MEDS: BALSAM PERU/CASTOR OIL 60 GM OINT...G. TP SCH (10:14)
--- NOTE | 2017-07-16 11:42 | NUR ---
DC Planning: DCP reassessment: s/w pt. at bedside regarding possible dcp to snf for wd care and cont. IV ABX. The pt. agreed with TCU at [facility] (contracted daryl [facility] PPO). Otherwise he wants to go home with home health. Per BRYAN Salmeron, the pt. refused O2 with reason that he does not want to depend on it but the pt. desat on room air. The pt. will need HD x 3days per dr. Velez. CM/BRYAN Salmeron to f/u dcp with dr. Plascencia. >> LM to Ryanne Wilson Clinical DC coordinator ph [phone] requesting dcp /auth assistance. Addendum: 07/16/17 at 1441 by Deepak Hudson RN >> Per fax received from [facility]: providing contracted Snf and ambulance list. May use [facility] or galileo Reyes auth jose. KAREN LM another message to verify contracted snf : TCU at [facility] is not on the fax but karen Delgadillo at [facility] stated TCU is contracted with Ryanne CRE[facility]. >> Cm s/w karen Delgadillo at [facility] # [phone], fax# [phone] stated TCU can provide HD, wound care and IV ABX. Monique will fax the referral package to Leona once PT note is available.
--- NOTE | 2017-07-16 12:45 | NUR ---
Note Pt worked physical therapy on ambulation. Tolerated well. Pt also had ABG's done and results will be called in to Dr Young at this time. No needs noted. Pt's at bedside at this time. Pt wants to go home, but understands the need to be stable before being discharged home - spoke to Dr Young and Dr Velez. Call light within reach.
[2017-07-16 12:59] VITALS: BP_SYST 98
[2017-07-16] MEDS ORDERED: EPOETIN ALFA 10,000 UNITS/ML VIAL SUBCUT ONE (13:00)
--- NOTE | 2017-07-16 13:05 | NUR ---
NOTE Called Dr Young and gave the results of the ABG's done on room air. Dr Levy came in to see and assessment completed at this time as well. Questions/concerns were answered at this time as well about plan of care and discharge plan. Call light within reach.
--- NOTE | 2017-07-16 15:00 | NUR ---
Note interactive media designer in pt's room at this time to start dialysis. Jerry (flatwork finisher hand) stated Flagyl and Maxipime IVPB be given after dialysis is over in 3-4 hours.
--- NOTE | 2017-07-16 15:05 | NUR ---
Oral supplement Pt seen per request. He stated that his appetite is still poor. Pt verbalized request for Novasource Renal oral supplement. *Recommend [facility] Renal Standard w/ Novasource Renal TID. Oral supplement will provide additional 1425 kcal and 63 gm protein daily. Complete Nutrition F/U note to follow. MATT, RD
--- NOTE | 2017-07-16 15:21 | NUR ---
Claim Clinician DCP faxed pts inquiry to KAREN Delgadillo for review and received fax confirmation. DCP will continue to follow up as needed.
--- NOTE | 2017-07-16 15:50 | NUR ---
Note Pt resting in bed with his ventimask back on, O2 at 9L/nc. Pt denies any needs at this time. Dialysis has started and running at this time. Call light within reach.
[2017-07-16 16:44] VITALS: BP_SYST 109
--- NOTE | 2017-07-16 16:45 | NUR ---
DC Planning: Per dr. Bustamante : to continue current IV abx at snf. LVM updated Leona at TCU/[facility] the pt. will need to continue IV ABX, wound care, PT and HD. --CM to f/u in am. >> Received call back from Anastasiia, stated TCU at [facility] [place] [facility] The pt. may transfer there if accepted. May use [facility] for transportation, no auth required.
[2017-07-16] MEDS ORDERED: EPOETIN ALFA 3,000 UNITS/ML VIAL SUBCUT SCH (17:00)
--- NOTE | 2017-07-16 17:40 | NUR ---
Note Pt still having dialysis running at this time. Dr Bustamante was on the floor and orders written and carried out at this time. No needs noted. Pt still wearing venti mask of O2 at 8L/nc at this time. No needs noted. Call light within reach.
--- NOTE | 2017-07-16 18:25 | NUR ---
Note Pt resting in bed with venti mask on at 8L/nc. Pt having dialysis at this time. No SOB/resp distress or pain/discomfort noted at this time. Pt checked on q1' and PRN all shift for needs anc care. Tele unit attached and intact all shift. No needs noted. EH PICC intact and patent at this time. Call light within reach. No needs noted.
[2017-07-16] MEDS: CEFEPIME 1 GM in D5W 50 ML IV SCH (18:33)
[2017-07-16 20:00] VITALS: BP_SYST 100
--- NOTE | 2017-07-16 20:00 | NUR ---
Initial PM Note Pt is fully awake, alert and oriented x4. Speech is clear and pt is able to make his needs known. Pt is sitting on the side of his bed with his feet on the floor. Pt declines bed alarm. Right foot dressing is dry and intact. Left foot dressings are also dry and intact. EH PICC double lumen noted with the dressing dry and intact. Right chest Hemodialysis Jerry cath also noted with the dressing dry and intact. No c/o pain or discomfort at this time. Skin is warm and dry to touch. No signs or symptoms of hypoglycemia or hyperglycemia noted. Fall and safety precautions are in place. Pt was instructed to call for assistance as needed and pt verbalized understanding. Call light is with pt. Will continue to monitor pt.
--- NOTE | 2017-07-16 21:16 | NUR ---
Pain/Nausea [place] 5/325mg 1 tablet was given po for c/o abdominal pain with relief. Reglan 5mg was given IV for c/o nausea with good effect. No emesis noted. will continue to monitor pt.
--- NOTE | 2017-07-16 21:19 | NUR ---
Blood Sugar Accucheck 179 and 2 units Regular Insulin was given SQ. Skin remains warm and dry to touch. Pt was offered HS snacks and pt requested Jello. Pt ate 100% 1 cup of Jello. Will continue to monitor pt.
--- NOTE | 2017-07-16 22:30 | NUR ---
Rounds Pt is lying comfortably in bed. No respiratory distress noted. Fall and safety precautions are in place.
[2017-07-17] VITALS (7 sets, daily range): BP systolic 99–111
--- NOTE | 2017-07-17 | NUR ---
Rounds Pt is resting comfortably in bed and declines bed alarm. No acute distress noted. Call light is with pt. Will continue to monitor pt.
--- NOTE | 2017-07-17 02:00 | NUR ---
Rounds Pt is sleeping comfortably in bed. No respiratory distress noted. Fall and safety precautions are in place.
[2017-07-17] MEDS: IPRATROPIUM/ALBUTEROL SULFATE 3 ML AMPUL.NEB INH SCH ×4 (03:28→15:39)
--- NOTE | 2017-07-17 04:00 | NUR ---
Rounds Pt is sleeping in bed without any distress noted. Call light is with pt.
[2017-07-17] MEDS: DILTIAZEM HCL 60 MG TABLET PO SCH ×2 (06:00→13:32)
[2017-07-17 06:28] LABS: CALCIUM 8.4 mg/dL (8.4-11.0); CREATININE 3.65 mg/dL (0.55-1.30); POTASSIUM 3.2 mmol/L (3.5-5.1)
[2017-07-17 06:30] LABS: BASOPHILS % (AUTO) 0.2 % (0.0-2.0); EOSINOPHILS # (AUTO) 0.2 K/uL (0.0-0.4); EOSINOPHILS % (AUTO) 3.1 % (0.0-4.0); HEMATOCRIT 22.7 % (36-54); HEMOGLOBIN 7.6 g/dL (14.0-18.0); LYMPHOCYTES # (AUTO) 0.9 K/uL (1.0-5.5); LYMPHOCYTES % (AUTO) 12.9 % (20.5-51.5); MEAN CORPUSCULAR HEMOGLOBIN 28 pg (27-31); MEAN CORPUSCULAR HGB CONC 33 % (32-36); MEAN CORPUSCULAR VOLUME 83 fL (79.0-98.0); MONOCYTES % (AUTO) 13.8 % (1.7-9.3); NEUTROPHILS # (AUTO) 5.2 K/uL (1.8-7.7); PLATELET COUNT (AUTO) 244 K/uL (130-430); RED BLOOD CELL COUNT(AUTO) 2.73 MIL/uL (4.2-6.2); RED CELL DISTRIBUTION WIDTH 15.6 % (9.0-15.0); WHITE BLOOD COUNT (AUTO) 7.3 K/uL (4.8-10.8)
[2017-07-17] MEDS: INSULIN REGULAR, HUMAN 100 UNITS/ML, 10 ML VIAL (novoLIN R) SUBCUT PRN ×2 (06:36→16:14)
--- NOTE | 2017-07-17 06:57 | NUR ---
Closing Note Pt is resting comfortably in bed. Pt denies pain or discomfort at this time. All pt's needs were attended to. No fall or injury noted this shift. Accucheck 198 this AM and 2 units Regular Insulin was given SQ. Skin remains warm and dry to touch. Will endorse to day shift nurse.
--- NOTE | 2017-07-17 08:00 | NUR ---
Note Pt sitting up in bed having breathing treatments. No SOB/resp distress or severe pain/discomfort noted at this time. Right foot dressing dry and intact. EH PICC intact and patent. Right upper chest Jerry cath intact. hand candle dipper came to room to start dialysis at this time on patient. Call light within reach. No needs noted.
--- NOTE | 2017-07-17 09:08 | NUR ---
PAGED DR JACK @ [phone] FOR ORDERS
--- NOTE | 2017-07-17 10:13 | NUR ---
DC Planning: F/U snf transfer: Per KAREN Delgadillo /[facility] : the pt. is accepted pending authorization from . She will provide bed assignment once obtaining the authorization. Addendum: 07/17/17 at 1202 by Deepak Hudson RN >> Received the transfer approval from KAREN Marcus at [facility]. and coretta Wei cm at [facility], confirmed acceptance and gave bed assignment room 107, bed available after [address]. [address] Levy, and received order to transfer pt. to [facility]. >> KAREN provided courtesy call and s/w with dr. Rodriguez , [employer] consultant for dr. Plascencia at [facility]. Dr. Rodriguez will assume care for dr. Plascencia. KAREN provided HP,FS and initial consultations package per request.
[2017-07-17] MEDS: ONDANSETRON HCL 4 MG/2 ML VIAL IVP PRN (10:45)
--- NOTE | 2017-07-17 11:00 | NUR ---
Note Dr Roman called back and stated he would come in and do pt's right foot dressing change. Pt was notified and dressing change collected and kept in pt's room. Dialysis still running at this time. All PO and IVPB 09am medications held till after dialysis is completed. Call light within reach.
[2017-07-17] MEDS ORDERED: HEPARIN SODIUM,PORCINE 5000 UNITS/ML VIAL ONE (11:26)
--- NOTE | 2017-07-17 12:55 | NUR ---
[facility]: TCU/ICC bed assignment # 107, RN to report # [phone] x [phone]. Per MinnieHOP STRAINER: booked BLS with [facility] with [facility] ambulance picker and packer time at 7 pm. CM informed pt. of the transfer time and aware that dr. Plascencia is not in town, dr. Michael rinaldi will assume care at TCU. The pt. agreed with POC transferring at 7 pm today. BRYAN Salmeron made aware.
--- NOTE | 2017-07-17 13:00 | NUR ---
Note Pt's dialysis was completed, 09am medications and IVPB will be given at this time. Pt denies any needs at this time. Dr Roman came to floor and changed pt's right foot dressing. Call light within reach.
--- NOTE | 2017-07-17 13:03 | NUR ---
Changed to nasal cannula Placed pt on 4L O2 via nasal cannula and pt is currently at 98% O2 saturation. will continue to monitor.
[2017-07-17] MEDS: LINEZOLID 300 ML IV SCH (13:29)
[2017-07-17] MEDS: CILOSTAZOL 50 MG TABLET (PLETAL) PO SCH (13:31)
[2017-07-17] MEDS: FUROSEMIDE 40 MG/4 ML VIAL IVP SCH (13:32)
[2017-07-17] MEDS: APIXABAN 2.5 MG TABLET PO SCH (13:32)
--- NOTE | 2017-07-17 13:32 | NUR ---
Nutrition F/U Admitting Diagnosis PNEUMONIA Reviewed Pertinent Medical/Surgical Hx Medical Record Patient Medical History Comment: PMH: Renal failure per MD notes. Pt also found w/: DM, HTN, CAD, Sepsis, ARF 2/2 Acute tubular necrosis per MD notes. Per Renal Consult notes: metabolic acidosis. 07/04/17 MD Progress notes: Acute Hypoxic Respiratory Failure, Pneumonia, Pulmonary Edema, Acute/Chronic Renal Failure, LLE DVT, S/P R toe amputation/ cellulitis, Thrombocytosis likely reactive. 07/17/17 MD Progress notes: Anemia. Subjective Information Pt seen for follow up. Pt seen resting in bed, dialysis ongoing w/ area secretary at bedside. Pt reported of poor appetite. RD noticed Novasource Renal at bedside tray, untouched. Pt stated that he just don't feel hungry. Pt verbalized to RD that he will try harder to eat and improve his food intake. Per EMR, last BM 07/17/17 x 1. Abd is soft and non- distended w/ active bowel sounds. I/O: 1040/50 +990ml, IV total intake: 300ml per 12 hrs. PO intake 28% x 3 meals x 1 refusal 07/16/17. Pt is not yet meeting adequate nutrition w/ current oral intake. Encourage pt to increase food intake. Current Diet Order/Nutrition Support [facility] Renal Standard 2gm Na 3gm K 1gm Phosphorus w/ Novasource Renal TID Patient/Significant Other Able To Verbalize Education Provided Not Indicated Pertinent Medications zofran, SSI, reglan, lasix, eliquis Pertinent Labs Na 128L,K 3.2L, BG 191H, POC BG 198H, BUN 42H, CRE 3.65H, Alb 2L, H/H 7.6L/22.7L, WBC 7.3 WNL (improved), RBC 2.73L Height (Feet) 5 feet Height (Inches) 10.00 inches Weight (Pounds) 215 pounds BED SCALE WT: 96 kg (07/04/17 by RN); 222 lb, 101 gm (07/09/[address]) Weight (Calculated Kilograms) 97.885504 kilograms Patient Weight 97.522 kg Body Mass Index 30.85 kg/m2 %IBW 130 [place]/Adjusted Body Weight 166 lb, 75 kg; ABW Obesity 178 lb, 81 kg Recent Weight Change Yes - wt loss per pt, amount and timeframe unknown. Weight Status Obese Gastrointestinal Symptoms None Last BM July 17, 2017 x 1 Usual Diet At Home Diabetic diet per pt. Skin Integrity Comment: Cole scale: 19; per Shuttle Fitting Supervisor note 07/10/17: 1. Right great toe amputation site: Diabetic foot ulcer with recent amputation, present on admission. Wound bed has 55% yellow slough, 40% soft black eschar, 5% brown slough. No odor, scant purulent drainage. Soft yellow slough area has fluctuance. All visible wound tissue is now slough secondary to autolytic debridement. Site measures 11.5 cm x 6.0 cm x 0.8 cm. Black sutures and ita present. Right foot has pink coloration on luisa-wound only, no calor. Right foot has 3+ pitting edema. Left foot has 3+ pitting edema. 2. Left plantar foot on 1st metatarsal head: Chronic diabetic foot ulcer, present on admission. Wound site has 10% black eschar, 90% brown eschar. No odor, no drainage. Dry, stable. Callused periwound. Wound site measures 2.0 cm x 1.5 cm. Small, clear, closed hard bulla present on medial aspect of first metatarsal head. 3. Left foot fifth toe, dorsal aspect: Chronic diabetic foot ulcer, present on admission. Wound site has 10% black eschar, 90% white eschar. No odor, no drainage. Dry, stable. Callused periwound. Wound site measures 1.3 cm x 1.3 cm. per RN notes, 3+ pitting edema of BLE, 1+ pitting edema of BUE Current % PO Poor 28% Estimated Energy Expenditure (kcals/day) 0214-0415 kcal/day (BEE x 1.2-1.5 IBW for Sepsis) Estimated Protein Required (g/day) 90-98 gm/day (1.2-1.3 gm/kg IBW for Renal Dz on dialysis) Estimated Fluid Required (l/day) per MD (ARF) Problem/Etiology/Signs/Symptoms Increased nutritional needs related to metabolic demands as evidenced by estimated calorie needs for Sepsis. *ongoing Moderate malnutrition related to chronic illness as evidenced by NEGLIGIBLE oral intake and wt loss. *oral intake is improving Expected Outcomes/Goals Monitor pt appetite and oral intake w/ goal of pt meeting at least 75% of estimated nutritional needs, labs trending WNL, normal GI function, skin integrity/wt maintenance. Dietitian Recommendations *Recommend continuing [facility] Renal Standard diet w/ Novasource Renal TID. Oral supplement will provide additional 1425 kcal and 63 gm protein daily. Follow Up High Risk: F/U in 2-3days
--- NOTE | 2017-07-17 13:57 | NUR ---
Dietitian Recommendations *Recommend continuing [facility] Renal Standard diet w/ Novasource Renal TID. Oral supplement will provide additional 1425 kcal and 63 gm protein daily. *Encourage pt to increase oral intake. Please see Nutrition F/U note for details. MATT, RD
--- NOTE | 2017-07-17 15:14 | NUR ---
PHYSICAL THERAPY CO-SIGN The Physical Therapy Progress Notes documented by Kaiako Kura Tuarua have been reviewed. I CONCUR W/DOCTOR OF [facility] NOTE; Pt IS SHOWING PROGRES WITH POC, CONT PER TX PLAN Reviewed/Co-Signed by: Amita Jones PT Documentation Done by: SHEMAR CASSIDY PTA Addendum: 07/17/17 at 1514 by Amita Jones PT Amended: Links added.
[2017-07-17] MEDS: BALSAM PERU/CASTOR OIL 60 GM OINT...G. TP SCH (15:22)
--- NOTE | 2017-07-17 15:28 | NUR ---
Note Pt resting in bed and IVPB infusing well at this time through EH PICC. Pt also had session with Physical therapy for ambulation. Call light within reach.
[2017-07-17] MEDS: CEFEPIME 1 GM in D5W 50 ML IV SCH (16:08)
--- NOTE | 2017-07-17 16:34 | NUR ---
Note Report given to Elisa AADMS at TCU ([facility]).
--- NOTE | 2017-07-17 17:35 | NUR ---
NOTE Pt was assisted into orange gown and orange sheet. Pt's EH PICC 2 ports were flushed with saline 10cc each port. Pt's Jerry cath dressing was done by wash plant operator this afternoon after dialysis was completed. Pt's belongings were packed and kept at the bottom of the bed. Pt and his checked side table and drawers for belongings. Pt's left foot 2 dressings were changed at this time. Pt denies any N/V or SOB/resp distress or pain/discomfort at this time. Tele unit was dc'd and returned to classroom monitor at this time. Pt sitting up in BS chair. Pt's and son have gone home at this time - aware of pt's transfer to TCU ([facility] Discharge packet and packet for Dr Rodriguez ready at nurses' station. No needs noted. Call light within reach.
--- NOTE | 2017-07-17 18:17 | NUR ---
Note Pt resting in bed with O2 on at 4L/nc. Pt denies any needs at this time. No SOB/resp distress or pain/discomfort in right foot. Call light within reach.
--- NOTE | 2017-07-17 19:17 | NUR ---
Note EMT was on the floor. Report given to ambulance EMT, discharge packet and packet for Dr Rodriguez. Pt stable and took all belongings.
== END 2017-07-17 19:17 | DRG 463 ==
LOC: SED 10:33 → SIC 13:04 → STU 13:43 → SIC 07-03 10:07 → SMU 07-03 10:07 → STU 07-12 21:55
PROVIDERS: ADMIT Internal Medicine Hospice and Palliative Medicine; ATTEND Internal Medicine Hospice and Palliative Medicine
PROC: 02HV33Z Insertion of Infusion Device into Superior Vena Cava, Percutaneous Approach (ICD-10-PCS; principal; 2017-07-02)
PROC: B548ZZA Ultrasonography of Superior Vena Cava, Guidance (ICD-10-PCS; 2017-07-02)
PROC: 5A1D70Z Performance of Urinary Filtration, Intermittent, Less than 6 Hours Per Day (ICD-10-PCS; 2017-07-03)
PROC: 5A1D70Z Performance of Urinary Filtration, Intermittent, Less than 6 Hours Per Day (ICD-10-PCS; 2017-07-04)
PROC: 5A1D70Z Performance of Urinary Filtration, Intermittent, Less than 6 Hours Per Day (ICD-10-PCS; 2017-07-06)
PROC: 5A1D70Z Performance of Urinary Filtration, Intermittent, Less than 6 Hours Per Day (ICD-10-PCS; 2017-07-09)
PROC: 30233N1 Transfusion of Nonautologous Red Blood Cells into Peripheral Vein, Percutaneous Approach (ICD-10-PCS; 2017-07-11)
PROC: 5A1D70Z Performance of Urinary Filtration, Intermittent, Less than 6 Hours Per Day (ICD-10-PCS; 2017-07-11)
PROC: 0JBQ0ZZ Excision of Right Foot Subcutaneous Tissue and Fascia, Open Approach (ICD-10-PCS; 2017-07-12)
PROC: 5A1D70Z Performance of Urinary Filtration, Intermittent, Less than 6 Hours Per Day (ICD-10-PCS; 2017-07-13)
PROC: 5A1D70Z Performance of Urinary Filtration, Intermittent, Less than 6 Hours Per Day (ICD-10-PCS; 2017-07-16)
PROC: 5A1D70Z Performance of Urinary Filtration, Intermittent, Less than 6 Hours Per Day (ICD-10-PCS; 2017-07-17)
DX: T87.43 Infection of amputation stump, right lower extremity (principal); A41.9 Sepsis, unspecified organism; I21.A1 Myocardial infarction type 2; J96.01 Acute respiratory failure with hypoxia; N17.0 Acute kidney failure with tubular necrosis; E43 Unspecified severe protein-calorie malnutrition; I50.33 Acute on chronic diastolic (congestive) heart failure; M86.8X7 Other osteomyelitis, ankle and foot; E87.1 Hypo-osmolality and hyponatremia; J18.9 Pneumonia, unspecified organism; I13.0 Hypertensive heart and chronic kidney disease with heart failure and stage 1 through stage 4 chronic kidney disease, or unspecified chronic kidney disease; E87.2 Acidosis; I82.412 Acute embolism and thrombosis of left femoral vein; I82.432 Acute embolism and thrombosis of left popliteal vein; E11.22 Type 2 diabetes mellitus with diabetic chronic kidney disease; I50.9 Heart failure, unspecified; E11.51 Type 2 diabetes mellitus with diabetic peripheral angiopathy without gangrene; E78.5 Hyperlipidemia, unspecified; B95.61 Methicillin susceptible Staphylococcus aureus infection as the cause of diseases classified elsewhere; N18.9 Chronic kidney disease, unspecified; I25.10 Atherosclerotic heart disease of native coronary artery without angina pectoris; Y95 Nosocomial condition; E11.69 Type 2 diabetes mellitus with other specified complication; D64.9 Anemia, unspecified; D47.3 Essential (hemorrhagic) thrombocythemia; E88.09 Other disorders of plasma-protein metabolism, not elsewhere classified; Y83.8 Other surgical procedures as the cause of abnormal reaction of the patient, or of later complication, without mention of misadventure at the time of the procedure; L03.031 Cellulitis of right toe; B96.89 Other specified bacterial agents as the cause of diseases classified elsewhere; Z79.01 Long term (current) use of anticoagulants; Y92.89 Other specified places as the place of occurrence of the external cause; Z83.3 Family history of diabetes mellitus; Z86.718 Personal history of other venous thrombosis and embolism; Z89.411 Acquired absence of right great toe; Z89.421 Acquired absence of other right toe(s); Z79.899 Other long term (current) drug therapy; Z90.49 Acquired absence of other specified parts of digestive tract; Z68.30 Body mass index [BMI] 30.0-30.9, adult
CPT/HCPCS: 36415; 36600; 71045; 71250-TC; 76604; 76770; 80048; 80053; 80074; 81000-TC; 82550-TC; 82803-TC; 82962; 83540-TC; 83550-TC; 83605; 83880; 84100-TC; 84484; 85007; 85025; 85027; 85610-TC; 85651-TC; 85730-TC; 86038; 86256; 86886; 86900; 86901; 86920; 87040-TC; 87070-TC; 87081; 87101; 87116; 87205-TC; 88304; 90935; 90937; 93005; 93306; 93923; 93970; 93978; 94640; 94760; 96365; 96366; 96367; 96375; 97110-GP; 97116-GP; 97530-GP; 99285; C1751; C1769; J0692; J0885; J1160; J1644; J1815; J1940; J1956; J2001; J2020; J2250; J2405; J2543; J2704; J2765; J3010; J3370; J3490; J7030; J7050; J7060; J7620; P9021

== ENCOUNTER 2017-08-04 10:12 | Emergency (ER) | payer BC ==
[~2017-08-04 10:12] MED LIST changes: +FURO80TA3 PO; +METF1000 PO; -METF100P3 MC; +NOR10 PO
--- NOTE | 2017-08-04 10:44 | NUR ---
Unable to locate patient in wr
--- NOTE | 2017-08-04 10:44 | NUR ---
Per Investment Advisor pt stated he could not wait and would return later.
== END 2017-08-04 10:44 | disposition left against medical advice (07) ==
LOC: SED 10:12
DX: Z53.21 Procedure and treatment not carried out due to patient leaving prior to being seen by health care provider (principal)

== ENCOUNTER 2017-08-08 10:39 | Emergency (ER) | payer BC ==
[~2017-08-08] VITALS: Ht 175.3 cm; Wt 86.2 kg
[2017-08-08 11:14] VITALS: BP_SYST 135
[2017-08-08 12:23] VITALS: BP_SYST 131
== END 2017-08-08 12:24 | disposition home or self-care (01) ==
LOC: SED 10:39
DX: Z45.2 Encounter for adjustment and management of vascular access device (principal); E11.9 Type 2 diabetes mellitus without complications; I10 Essential (primary) hypertension; Z79.899 Other long term (current) drug therapy
CPT/HCPCS: 73590-TC; 99283; 99284